=== PATIENT | female | born 1945 | race Caucasian/White ===

== ENCOUNTER 2018-04-21 13:54 | Inpatient (IN) ==
[2018-04-21] MEDS ORDERED: Sod Chloride 0.9% Inj 1,000 ML IV.CONT SCH (14:00)
--- NOTE | 2018-04-21 14:03 | ED ---
HPI General Chief Complaint: Stroke Alert Stated Complaint: Poss Stroke Time Seen by Provider: 04/21/18 13:56 Source: EMS Mode of arrival: EMS Limitations: altered mental status History of Present Illness HPI narrative: Elderly female with history of multiple previous strokes, right- sided weakness and contractures, left-sided weakness, presents to the ER today brought in by EMS, apparently family states that 45 minutes prior to arrival she was seen normal which includes being able to talk normally. However, they note that she became less responsive, disoriented, staring off, difficulty speaking, disoriented. Related Data Home Medications Medication Instructions Recorded Confirmed Unable to Obtain Home Meds 04/21/18 04/21/18 Allergies Allergy/AdvReac Type Severity Reaction Status Date / Time No Allergy Information Allergy Verified 04/21/18 15:13 Available Review of Systems ROS Unobtainable ROS Unobtainable: unobtainable due to mental status PMFSH History History Provided By: Record Filing Clerk / EMT Medical History Medical History CVA (cerebral vascular accident) (Acute) Social History Social History Substance History: Unable to Obtain Smoking Status: Unknown if ever smoked How Often Do You Have a Drink Containing Alcohol: Unable to Obtain Exam Narrative Exam Narrative: GENERAL: Thin elderly white female patient who has right-sided contractures from previous stroke, awake, disoriented, and moderate distress, aphasic and difficult to understand. SKIN: Focused skin assessment warm/dry. HEAD: Atraumatic. Normocephalic. EYES: Pupils equal and round. No scleral icterus. No injection or drainage. ENT: No nasal bleeding or discharge. Mucous membranes pink and moist. NECK: Trachea midline. No JVD. CARDIOVASCULAR: Regular rate and rhythm. No murmur appreciated. RESPIRATORY: No accessory muscle use. Clear to auscultation. Breath sounds equal bilaterally. GASTROINTESTINAL: Abdomen soft, non-tender, nondistended. Hepatic and splenic margins not palpable. MUSCULOSKELETAL: No obvious deformities. No clubbing. No cyanosis. No edema. NEUROLOGICAL: Awake and disoriented. Garbled speech. Face appears to be symmetrical. Right-sided weakness, contractures, moving the left side, but not following commands. PSYCHIATRIC: Disoriented and not able to assess. Course Initial Documented Vital Signs Temperature 97.7 F 04/21/18 13:55 Pulse Rate 85 04/21/18 13:55 Respiratory Rate 16 04/21/18 13:55 Blood Pressure 115/63 04/21/18 13:55 Pulse Oximetry 95 04/21/18 13:55 Last Documented Vital Signs Temperature 97.7 F 04/21/18 13:55 Pulse Rate 60 04/21/18 13:56 Respiratory Rate 16 04/21/18 13:55 Blood Pressure 115/63 04/21/18 13:55 Pulse Oximetry 97 04/21/18 14:01 NIH Stroke Scale NIH Stroke Scale Level of Consciousness: 1-Drowsy Orientation Questions: 2-Neither task correct Responds to Commands: 2-Neither task correct Gaze Eye Movement: 1-Partial gaze palsy Visual [place]: 0-No visual field defect Facial Movement: 0-Normal Motor Functions Arm LEFT: 1-Drift before 10 seconds Motor Functions Arm RIGHT: 3-No effort against gravity Motor Functions Leg LEFT: 1-Drift before 5 seconds Motor Functions Leg RIGHT: 3-No effort against gravity Limb Ataxia: 1-Ataxia in one limb Sensory Loss: 2-Severe sensory loss Best Language: 1-Mild aphasia Articulation: 1-Mild dysarthia Extinction or Inattention Sensory: 0-Absent Total: 19 Medical Decision Making MDM Narrative Medical decision making narrative: CT did not show any signs of acute intracranial injuries or hemorrhage, she has signs of old previous ischemic strokes. CTA did not show any signs of acute occlusion. Her lab work was fairly unremarkable. She is barely able to follow commands, very disoriented. Patient is named Erin Diaz and review of previous chart shows that she has had multiple previous stroke, had been on Coumadin in the past. Her INR is 1 here. The case had been discussed extensively with Dr. Orr who had first thought that she would be a TPA candidate, but then discussed the case with patient's family on record and they state that she is on Eliquis. TPA was then canceled. At this point, patient will be admitted to the hospital for further treatment and evaluation. Case is discussed with family practice resident service for admission. In addition, her EKG did not show any significant dysrhythmias or ST changes. Her troponin is mildly elevated, will need to be followed out as well. Medical Screen Exam Complete: Yes Emergency Medical Condition: Yes Differential Diagnosis Differential Diagnosis: CA versus ICH versus electrolyte abnormalities versus dehydration versus electrolyte abnormalities Lab Data Lab results reviewed: Yes I reviewed the patient's lab results. Result diagrams: 04/21/18 14:00 Lab Results 04/21/18 04/21/18 04/21/18 Range/Units 13:57 14:00 14:00 WBC 10.1 (4.0-11.0) th/mm3 RBC 2.98 L (4.00-5.30) mil/mm3 Hgb 9.5 L (11.6-15.3) gm/dL POC Hgb (Calc) (11.6-15.3) g/dL Hct 27.6 L (35.0-46.0) % POC Hct (35-46.0) % MCV 92.5 (80.0-100.0) fL MCH 31.8 (27.0-34.0) pg MCHC 34.4 (32.0-36.0) % RDW 13.8 (11.6-17.2) % Plt Count 405 (150-450) th/mm3 MPV 6.4 L (7.0-11.0) fL Neut % (Auto) 78.1 H (16.0-70.0) % Lymph % (Auto) 13.0 (9.0-44.0) % [place] % (Auto) 7.1 (0.0-8.0) % Eos % (Auto) 0.9 (0.0-4.0) % Baso % (Auto) 0.9 (0.0-2.0) % Neut # (Auto) 7.9 H (1.8-7.7) th/mm3 Lymph # (Auto) 1.3 (1.0-4.8) th/mm3 [place] # (Auto) 0.7 (0.0-0.9) th/mm3 Eos # (Auto) 0.1 (0.0-0.4) th/mm3 Baso # (Auto) 0.1 (0.0-0.2) th/mm3 WBC Differential . Differential Comment Auto diff final PT 10.0 (9.8-11.6) sec INR 1.0 Ratio APTT 27.5 (24.3-30.1) sec POC Sodium (137-144) mmol/L POC Potassium (3.6-5.0) mmol/L POC Chloride (102-111) mmol/L POC BUN (5-21) mg/dL POC Creatinine (0.6-1.3) mg/dL POC Glucose 133 H (68-110) mg/dl Total Creatine Kinase (26-192) U/L Troponin I (0.02-0.05) ng/mL Blood Type Antibody Screen 04/21/18 04/21/18 04/21/18 Range/Units 14:00 14:00 14:00 WBC (4.0-11.0) th/mm3 RBC (4.00-5.30) mil/mm3 Hgb (11.6-15.3) gm/dL POC Hgb (Calc) 8.8 L (11.6-15.3) g/dL Hct (35.0-46.0) % POC Hct 26.0 L (35-46.0) % MCV (80.0-100.0) fL MCH (27.0-34.0) pg MCHC (32.0-36.0) % RDW (11.6-17.2) % Plt Count (150-450) th/mm3 MPV (7.0-11.0) fL Neut % (Auto) (16.0-70.0) % Lymph % (Auto) (9.0-44.0) % [place] % (Auto) (0.0-8.0) % Eos % (Auto) (0.0-4.0) % Baso % (Auto) (0.0-2.0) % Neut # (Auto) (1.8-7.7) th/mm3 Lymph # (Auto) (1.0-4.8) th/mm3 [place] # (Auto) (0.0-0.9) th/mm3 Eos # (Auto) (0.0-0.4) th/mm3 Baso # (Auto) (0.0-0.2) th/mm3 WBC Differential Differential Comment PT (9.8-11.6) sec INR Ratio APTT (24.3-30.1) sec POC Sodium 135 L (137-144) mmol/L POC Potassium 4.0 (3.6-5.0) mmol/L POC Chloride 98 L (102-111) mmol/L POC BUN 40 H (5-21) mg/dL POC Creatinine 1.3 (0.6-1.3) mg/dL POC Glucose 106 (68-110) mg/dl Total Creatine Kinase 35 (26-192) U/L Troponin I 0.16 H (0.02-0.05) ng/mL Blood Type A Positive Antibody Screen Negative Imaging Data Attestation: I personally reviewed and interpreted this imaging study as follows : Radiologist's impression: Chest X-Ray 04/21/18 13:56 CONCLUSION: Technically Limited exam grossly negative for acute process Head CT 04/21/18 13:56 CONCLUSION: 1. No acute intracranial abnormality is identified to explain the clinical symptoms. 2. Bilateral areas of encephalomalacia, as above, related to prior infarcts. 3. Chronic findings include generalized atrophy and moderate severity chronic white matter changes. These findings were telephoned to Dr. Yap via telephone on 04/21/2018 at 2:11 PM. Head CTA 04/21/18 13:56 CONCLUSION: No intracranial vascular abnormality is identified. These findings were telephoned to Dr. Orr on 04/21/2018 at 2:24 PM. Neck CTA 04/21/18 13:56 CONCLUSION: No evidence of carotid stenosis. Discharge Plan Discharge Details Anticipated Discharge Date: 04/21/18 Physicians Team ED Provider: Nancy Yap Rxs /Orders / Referrals /Forms Prescriptions: No Action Unable to Obtain Home Meds RF: 0 Status ED Status: With Doctor
[2018-04-21 14:12] LABS: Baso # (Auto) 0.1 th/mm3 (0.0-0.2); Baso % (Auto) 0.9 % (0.0-2.0); Eos # (Auto) 0.1 th/mm3 (0.0-0.4); Eos % (Auto) 0.9 % (0.0-4.0); Hematocrit 27.6 % (35.0-46.0); Hemoglobin 9.5 gm/dL (11.6-15.3); Lymph # (Auto) 1.3 th/mm3 (1.0-4.8); Mean Corpuscular HGB Conc 34.4 % (32.0-36.0); Mean Corpuscular Hemoglobin 31.8 pg (27.0-34.0); Mean Corpuscular Volume 92.5 fL (80.0-100.0); Mean Platelet Volume 6.4 fL (7.0-11.0); Mono # (Auto) 0.7 th/mm3 (0.0-0.9); Mono % (Auto) 7.1 % (0.0-8.0); Neut # (Auto) 7.9 th/mm3 (1.8-7.7); Neut % (Auto) 78.1 % (16.0-70.0); Platelet Count 405 th/mm3 (150-450); Red Blood Count 2.98 mil/mm3 (4.00-5.30); Red Cell Distribution Width 13.8 % (11.6-17.2); White Blood Count 10.1 th/mm3 (4.0-11.0)
--- NOTE | 2018-04-21 14:15 | CT ---
EXAM DATE: 04/21/2018 2:07 PM EDT AGE/SEX: 89 years / Female INDICATIONS: Stroke alert, inability to speak sentences CLINICAL DATA: This is the patient's initial encounter. Patient reports that signs and symptoms have been present for 1 day and indicates a pain score of Nonresponsive. MEDICAL/SURGICAL HISTORY: Cerebrovascular disease. Non-responsive. RADIATION DOSE: 37.45 CTDI (mGy) COMPARISON: No prior exams available for comparison. TECHNIQUE: CT of the head without contrast. Using automated exposure control and adjustment of the mA and/or kV according to patient size, radiation dose was kept as low as reasonably achievable to ob tain optimal diagnostic quality images. DICOM format image data is available electronically for revi ew and comparison. FINDINGS: Cerebrum: There is moderate generalized cerebral atrophy. Ventricles are normal given the degree of atrophy. There is moderate periventricular white matter low attenuation. There is large area of par tially cystic encephalomalacia involving the left frontoparietal high and mid convexity. A smaller ar ea of partially cystic encephalomalacia is present in the right frontal high convexity. No midline sh ift, mass lesion, hemorrhage or acute infarction. No extraaxial fluid collections are seen. Posterior Fossa: The cerebellum and brainstem demonstrate no acute abnormality. The 4th ventricle is midline. The cerebellopontine angle is within normal limits. Extracranial: The visualized sinuses are clear. Skull: The calvaria is intact. No skull fracture. CONCLUSION: 1. No acute intracranial abnormality is identified to explain the clinical symptoms. 2. Bilateral areas of encephalomalacia, as above, related to prior infarcts. 3. Chronic findings include generalized atrophy and moderate severity chronic white matter changes. These findings were telephoned to Dr. Yap via telephone on 04/21/2018 at 2:11 PM. Electronically signed by: Ru Gordon MD 04/21/2018 2:14 PM EDT
[2018-04-21 14:22] LABS: Activated Partial Thrombo Time 27.5 sec (24.3-30.1)
--- NOTE | 2018-04-21 14:26 | CT ---
EXAM DATE: 04/21/2018 2:17 PM EDT AGE/SEX: 89 years / Female INDICATIONS: Stroke alert, inability to speak CLINICAL DATA: This is the patient's initial encounter. Patient reports that signs and symptoms have been present for 1 day and indicates a pain score of Nonresponsive. MEDICAL/SURGICAL HISTORY: Cerebrovascular disease. Non-responsive. RADIATION DOSE: 26.18 CTDI (mGy) ; Combined studies COMPARISON: [facility] [place], CT HEAD W/O CONTRAST, 04/21/2018. . TECHNIQUE: Volumetric scanning was performed using a multi-row detector CT scanner during bolus infu zelalem of 75 ml Omnipaque 350 (iohexol) nonionic water-soluble contrast as a cumulative dose for multi ple exams. The data was post processed with a variety of visualization algorithms including full vo lume maximum intensity projection, multi-planar sliding thin slab reformation, curved planar reformat ion, and surface rendering techniques. Using automated exposure control and adjustment of the mA and /or kV according to patient size, radiation dose was kept as low as reasonably achievable to obtain o ptimal diagnostic quality images. DICOM format image data is available electronically for review and comparison. FINDINGS: Anterior circulation: The internal carotid arteries have a symmetric appearance without significant s tenosis. Minimal atherosclerotic changes present bilaterally. The A1 segments are symmetric and paten t bilaterally. Middle cerebral artery branches demonstrate normal and relatively symmetric enhancemen t. No aneurysm or high-grade stenosis is present. Posterior circulation: Left vertebral artery is dominant. Basilar artery is within normal limits. The re is no aneurysm. Posterior cerebral arteries are normal. CONCLUSION: No intracranial vascular abnormality is identified. These findings were telephoned to Dr. Orr on 04/21/2018 at 2:24 PM. Electronically signed by: Ru Gordon MD 04/21/2018 2:24 PM EDT
--- NOTE | 2018-04-21 14:35 | XR ---
EXAM DATE: 04/21/2018 2:33 PM EDT AGE/SEX: 89 years / Female INDICATIONS: Stroke alert. CLINICAL DATA: This is the patient's initial encounter. Patient reports that signs and symptoms have been present for 1 day and indicates a pain score of Nonresponsive. MEDICAL/SURGICAL HISTORY: Non-responsive. Non-responsive. COMPARISON: No prior exams available for comparison. FINDINGS: Patient is slightly rotated. BE skinfolds or other artifactual densities overlying the right chest. Cardiac monitoring device proj ects over the low left chest. The lungs are grossly clear and symmetrically aerated. The cardiac cont ours are satisfactory. CONCLUSION: Technically Limited exam grossly negative for acute process Electronically signed by: Ru Walter MD 04/21/2018 2:34 PM EDT
[2018-04-21 14:38] LABS: Troponin I 0.16 ng/mL (0.02-0.05)
--- NOTE | 2018-04-21 14:38 | CT ---
EXAM DATE: 04/21/2018 2:26 PM EDT AGE/SEX: 89 years / Female INDICATIONS: Stroke alert, inability to speak CLINICAL DATA: This is the patient's initial encounter. Patient reports that signs and symptoms have been present for 1 day and indicates a pain score of Nonresponsive. MEDICAL/SURGICAL HISTORY: Cerebrovascular disease. Non-responsive. RADIATION DOSE: 26.18 CTDI (mGy) ; Combined studies COMPARISON: No prior exams available for comparison. TECHNIQUE: Volumetric scanning was performed using a multirow detector CT scanner during bolus infus ion of 75 ml Omnipaque 350 (iohexol) nonionic water-soluble contrast as a cumulative dose for multip le exams. The data was postprocessed with a variety of visualization algorithms including full-volu me maximum intensity projection, multiplanar sliding thin-slab reformation, curved-planar reformation , and surface-rendering techniques. Using automated exposure control and adjustment of the mA and/or kV according to patient size, radiation dose was kept as low as reasonably achievable to obtain opti mal diagnostic quality images. DICOM format image data is available electronically for review and co mparison. Percent stenosis is calculated using the diameter of the stenotic region over the diameter of the nor mal distal internal carotid artery. FINDINGS: Aortic Arch: There is a three-vessel origin of the great vessels from the aorta. No evidence of ost ial narrowing Right Carotid: The common carotid artery is intact. The carotid bulb has a normal configuration wit hout ulceration or narrowing. The internal carotid artery lumen is smooth without stenosis. The ext ernal carotid artery is intact. Left Carotid: The common carotid artery is intact. The carotid bulb has a normal configuration with out ulceration or narrowing. The internal carotid artery lumen is smooth without stenosis. The exte rnal carotid artery is intact. Vertebrals: The vertebral arteries are patent bilaterally, left side dominant.. No stenotic lesions are seen. CONCLUSION: No evidence of carotid stenosis. Electronically signed by: Ru Walter MD 04/21/2018 2:36 PM EDT
[2018-04-21] MEDS ORDERED: Alteplase Bolus 9 MG/9 ML Syringe IV.PUSH ONE (14:46)
[2018-04-21] MEDS ORDERED: ALTEPLASE DRIP IV.SIG ONE (14:46)
[2018-04-21] MEDS ORDERED: Aspirin 325 MG Tablet PO ONE (15:32)
[2018-04-21 15:58] LABS: Bacteria,Urine Many /hpf; Bilirubin,Urine Negative (Negative); Clarity,Urine Cloudy (Clear); Color,Urine Yellow (Yellw/Straw); Glucose,Urine (UA) Negative (Negative); Leukocyte Esterase,Urine Large (Negative); Nitrite,Urine Negative (Negative); Specific Gravity,Urine 1.015 (1.002-1.035)
[2018-04-21] MEDS ORDERED: Dextrose 50% in Water 50 ML Vial IV.PUSH PRN (16:21)
--- NOTE | 2018-04-21 16:29 | P.CONNEU ---
History of Present Illness Service: Neurology Chief Complaint: Stroke alert History of Present Illness: Female brought in as a potential stroke alert. Symptom onset approximately 30- 45 minutes prior to arrival. Does have family to be acutely disoriented repeating herself at times. She does have a history of previous strokes including left hemispheric stroke resulting in aphasia and expressive and right spastic hemiparesis followed by further strokes affecting her left side. No known history of seizure activity. She does have a PEG tube. Upon discussion with her spouse on the phone Mr. Mills [phone], he states the patient takes Eliquis twice a day and he has been compliantly giving it to her. The patient is on anticoagulation she is not deemed IV TPA candidate. In addition appears that her speech is somewhat improved but was still having difficulty following motor requests. This challenging to do her NIH stroke scale with significant previous deficits. Review of Systems unobtainable due to mental status PMFSH - History History Provided By: Moccasin Sewer / EMT - Medical History Medical History: Medical History (Last Updated 04/21/18 @ 14:01 by Nancy Yap MD) CVA (cerebral vascular accident) - Tobacco History Smoking Status: Unknown if ever smoked - Alcohol History How Often Do You Have a Drink Containing Alcohol: Unable to Obtain - Substance Use History Substance History: Unable to Obtain - Immunization History Tetanus Immunization: Unable to Assess Hx Influenza Vaccine This Season: Unable to Assess Medications and Allergies Active Medications: Active Medications Sodium Chloride (Ns Inj) 1,000 mls @ 70 mls/hr IV.CONT .[id number] JORDIN Stop: 04/22/18 04:17 Last Admin: 04/21/18 16:01 Dose: 70 mls/hr Sodium Chloride (Ns Flush) 2 ml IV.FLUSH PRN PRN PRN Reason: FLUSH AFTER USING IV ACCESS Allergies Allergy/AdvReac Type Severity Reaction Status Date / Time No Known Allergies Allergy Verified 04/21/18 16:24 Home Medications Medication Instructions Recorded Confirmed Type Unable to Obtain Home Meds 04/21/18 04/21/18 History Exam Vital signs: Vital Signs 04/21/18 13:55 04/21/18 13:56 04/21/18 14:01 Temperature 97.7 F Pulse Rate 85 60 Respiratory Rate 16 Blood Pressure 115/63 Pulse Oximetry 95 95 97 Intake & Output 04/20/18 04/21/18 04/21/18 18:59 06:59 18:59 Weight 44.4 kg Narrative: GENERAL: WDWN obese female, INAD. Awake and alert. SKIN: Warm and dry. No rash. HEAD: Atraumatic. Normocephalic. EYES: Pupils equal and round. No scleral icterus. No injection or drainage. ENT: No nasal bleeding or discharge. Mucous membranes pink and moist. NECK: Trachea midline. CARDIOVASCULAR: Regular rate and rhythm. RESPIRATORY: No accessory muscle use. Clear to auscultation. GASTROINTESTINAL: Abdomen soft, non-tender, nondistended. PEG tube in place MUSCULOSKELETAL: Extremities without clubbing, cyanosis, or edema. No obvious deformities. NEUROLOGICAL: Awake and alert. Repeat herself states, "help help and states no , mild right gaze preference, not following reduced visual field blink to threat , OU 3 mm sluggish, right spastic hemiparesis, mild left-sided weakness, PEG tube in place gait not assessed secondary to fall risk and level weakness PSYCHIATRIC: Mildly anxious - Constitutional no acute distress - Routine HEENT Exam Head: Present: normocephalic Results - Labs CBC & Chem 7: 04/21/18 14:00 Labs: Laboratory Results - last 24 hr 04/21/18 04/21/18 04/21/18 13:57 14:00 14:00 WBC 10.1 RBC 2.98 L Hgb 9.5 L POC Hgb (Calc) Hct 27.6 L POC Hct MCV 92.5 MCH 31.8 MCHC 34.4 RDW 13.8 Plt Count 405 MPV 6.4 L Neut % (Auto) 78.1 H Lymph % (Auto) 13.0 [place] % (Auto) 7.1 Eos % (Auto) 0.9 Baso % (Auto) 0.9 Neut # (Auto) 7.9 H Lymph # (Auto) 1.3 [place] # (Auto) 0.7 Eos # (Auto) 0.1 Baso # (Auto) 0.1 WBC Differential . Differential Comment Auto diff final PT 10.0 INR 1.0 APTT 27.5 POC Sodium POC Potassium POC Chloride POC BUN POC Creatinine POC Glucose 133 H Total Creatine Kinase Troponin I Urine Color Urine Clarity Urine pH Ur Specific [place] Urine Protein Urine Glucose (UA) Urine Ketones Urine Occult Blood Urine Nitrate Urine Bilirubin Urine Urobilinogen Ur Leukocyte Esterase Urine RBC Urine WBC Urine Bacteria Micro UA Comment Urine Culture Comments Blood Type Antibody Screen 04/21/18 04/21/18 04/21/18 14:00 14:00 14:00 WBC RBC Hgb POC Hgb (Calc) 8.8 L Hct POC Hct 26.0 L MCV MCH MCHC RDW Plt Count MPV Neut % (Auto) Lymph % (Auto) [place] % (Auto) Eos % (Auto) Baso % (Auto) Neut # (Auto) Lymph # (Auto) [place] # (Auto) Eos # (Auto) Baso # (Auto) WBC Differential Differential Comment PT INR APTT POC Sodium 135 L POC Potassium 4.0 POC Chloride 98 L POC BUN 40 H POC Creatinine 1.3 POC Glucose 106 Total Creatine Kinase 35 Troponin I 0.16 H Urine Color Urine Clarity Urine pH Ur Specific [place] Urine Protein Urine Glucose (UA) Urine Ketones Urine Occult Blood Urine Nitrate Urine Bilirubin Urine Urobilinogen Ur Leukocyte Esterase Urine RBC Urine WBC Urine Bacteria Micro UA Comment Urine Culture Comments Blood Type A Positive Antibody Screen Negative 04/21/18 15:15 WBC RBC Hgb POC Hgb (Calc) Hct POC Hct MCV MCH MCHC RDW Plt Count MPV Neut % (Auto) Lymph % (Auto) [place] % (Auto) Eos % (Auto) Baso % (Auto) Neut # (Auto) Lymph # (Auto) [place] # (Auto) Eos # (Auto) Baso # (Auto) WBC Differential Differential Comment PT INR APTT POC Sodium POC Potassium POC Chloride POC BUN POC Creatinine POC Glucose Total Creatine Kinase Troponin I Urine Color Yellow Urine Clarity Cloudy H Urine pH 7.0 Ur Specific [place] 1.015 Urine Protein Negative Urine Glucose (UA) Negative Urine Ketones Negative Urine Occult Blood Small H Urine Nitrate Negative Urine Bilirubin Negative Urine Urobilinogen 2.0 H Ur Leukocyte Esterase Large H Urine RBC 6 H Urine WBC Urine Bacteria Many H Micro UA Comment Cath-culture ind Urine Culture Comments Cath-cult indicated Blood Type Antibody Screen - Imaging Impressions Chest X-Ray 04/21/18 13:56 CONCLUSION: Technically Limited exam grossly negative for acute process Head CT 04/21/18 13:56 CONCLUSION: 1. No acute intracranial abnormality is identified to explain the clinical symptoms. 2. Bilateral areas of encephalomalacia, as above, related to prior infarcts. 3. Chronic findings include generalized atrophy and moderate severity chronic white matter changes. These findings were telephoned to Dr. Yap via telephone on 04/21/2018 at 2:11 PM. Head CTA 04/21/18 13:56 CONCLUSION: No intracranial vascular abnormality is identified. These findings were telephoned to Dr. Orr on 04/21/2018 at 2:24 PM. Neck CTA 04/21/18 13:56 CONCLUSION: No evidence of carotid stenosis. Review/Management - Diagnosis (1) Encephalopathy acute Code(s): G93.40 - Encephalopathy, unspecified Status: Acute Current Visit: Yes (2) Chronic ischemic left MCA stroke Code(s): I69.30 - Unspecified sequelae of cerebral infarction Status: Acute Current Visit: Yes (3) Chronic ischemic right MCA stroke Code(s): I69.30 - Unspecified sequelae of cerebral infarction Status: Acute Current Visit: Yes (4) Chronic left arterial ischemic stroke, MCA (middle cerebral artery) Code(s): I69.30 - Unspecified sequelae of cerebral infarction Status: Acute Current Visit: Yes - Review/Management Plan: Etiology; possible new infarct, versus complex partial seizure, versus metabolic CT brain carotids no significant vaso-occlusive disease Recommendations MRI brain EEG Continue Eliquis for now until imaging completed. If new infarct seen we will change her anticoagulant. Follow-up urine culture PT OT evaluation We will start IV Celebrex until EEG completed Follow exam
[2018-04-21] MEDS ORDERED: Bisacodyl 10 MG Supp RECTAL PRN (16:35)
--- NOTE | 2018-04-21 16:49 | P.HPFP ---
History of Present Illness Chief Complaint: Stroke alert History of Present Illness: 72 year old female PMH multiple previous strokes, right-sided weakness and contractures, left-sided weakness, kidney stones presents with altered mental status. Patient non verbal or responsive to questions so history taken from daughter. Patient was unresponsive at 12:30 pm. After physical therapy session at home, patient was lying in bed and staring at ceiling. She did not respond to family members voice or movements. 20 minutes later she was yelling out to family members for help but not stating what was wrong or if she was in any pain. They called the EMS. During the physical therapy session she was interactive and cooperative. The past two weeks she had been her normal baseline tolerating her tube feedings, no vomiting, urinating normally with no change in color or odor of urine, no fever, no chills, no pain. 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 She suffered a second stroke in December with no focal deficits. She had another stroke in January that resulted in weakness of her left side. She regained function of her left leg but cannot use her left hand. She is moved by wheel chair with family assistance. She speaks limited words and often uses the incorrect words. Her daughter feels like she is still able to communicate with her and the patient's , who the patient lives with. They have a nurse who comes at night, but the daughter feels the nurse is not doing an adequate job taking care of her mother. The patient's is the medical decision maker. Daughter is unsure of patient's medications, but says she took her morning dose of Eliquis. - Diagnosis (1) Altered mental state (2) Nutrition, metabolism, and development symptoms Inpatient Certification: I certify that the inpatient services were ordered in accordance with Medicare regulations governing the order. This includes certification that hospital inpatient services are reasonable and necessary and in the case of services not specified as inpatient-only under 42 CFR 419.22(n), that they are appropriately provided as inpatient services in accordance to with the 2-midnight benchmark under 43 CFR 412.3(e) Estimated Total Length of Stay (Days): 3 Plans for Post Hospital Care: Not yet determined Review of Systems unobtainable due to mental condition PMFSH - History History Provided By: Director [employer] / EMT - Medical History Medical History: Medical History (Last Updated 04/21/18 @ 16:37 by Salud Euceda RN) CVA (cerebral vascular accident) Dysphagia Kidney disease Left sided cerebral hemisphere cerebrovascular accident Right sided cerebral infarction - Surgical History Surgical History: Surgical History (Last Updated 04/21/18 @ 16:37 by Salud Euceda, RN) H/O resection of stomach PEG (percutaneous endoscopic gastrostomy) status - Tobacco History Smoking Status: Unknown if ever smoked - Alcohol History How Often Do You Have a Drink Containing Alcohol: Unable to Obtain - Substance Use History Substance History: Unable to Obtain - Immunization History Tetanus Immunization: Unable to Assess Hx Influenza Vaccine This Season: Unable to Assess Medications and Allergies Active Medications: Active Medications Al Hydroxide/Mg Hydroxide (Milk Of Magnesia Liq) 30 ml PO Q12H PRN PRN Reason: Mild Constipation Apixaban (Eliquis) 5 mg PO BID JORDIN Bisacodyl (Dulcolax Supp) 10 mg RECTAL DAILY PRN PRN Reason: SEVERE CONSITIPATION Dextrose (D50w Vial) 50 ml IV.PUSH UNSCH PRN PRN Reason: PER HYPOGLYCEMIA PROTOCOL Glucagon (Glucagon Inj) 1 mg OTHER UNSCH PRN PRN Reason: for Hypoglycemia Protocol Sodium Chloride (Ns Inj) 1,000 mls @ 70 mls/hr IV.CONT .[id number] [facility] Stop: 04/22/18 04:17 Last Admin: 04/21/18 16:01 Dose: 70 mls/hr Insulin Aspart (Novolog Insulin Correctional Sugar Inj) 0 unit SQ ACHS [facility]; Protocol Lactulose (Lactulose Liq) 30 ml PO DAILY PRN PRN Reason: SEVERE CONSITIPATION Senna/Docusate Sodium (Shania-Colace) 1 tab PO BID [facility] Sennosides (Senokot) 17.2 mg PO Q12H PRN PRN Reason: Moderate Constipation Sodium Chloride (Ns Flush) 2 ml IV.FLUSH PRN PRN PRN Reason: FLUSH AFTER USING IV ACCESS Sodium Chloride (Ns Flush) 2 ml IV.FLUSH BID [facility] Allergies Allergy/AdvReac Type Severity Reaction Status Date / Time No Known Allergies Allergy Verified 04/21/18 16:24 Home Medications Medication Instructions Recorded Confirmed Type albuterol sulfate 2.5 mg INHALATION Q6H PRN 04/21/18 04/21/18 History apixaban [Eliquis] 2.5 mg PO BID 04/21/18 04/21/18 History atorvastatin 40 mg PO DAILY 04/21/18 04/21/18 History diltiazem HCl 120 mg PO Q12H 04/21/18 04/21/18 History docusate sodium 100 mg PO DAILY 04/21/18 04/21/18 History hydroxyzine HCl 25 mg PO TID-QID PRN 04/21/18 04/21/18 History lansoprazole 30 mg PO DAILY 04/21/18 04/21/18 History tramadol 25 mg PO Q4H PRN 04/21/18 04/21/18 History Exam Vital signs: Vital Signs 04/21/18 13:55 04/21/18 13:56 04/21/18 14:01 Temperature 97.7 F Pulse Rate 85 60 Respiratory Rate 16 Blood Pressure 115/63 Pulse Oximetry 95 95 97 04/21/18 15:32 Temperature Pulse Rate 85 Respiratory Rate 16 Blood Pressure 127/78 Pulse Oximetry 97 Intake & Output 04/20/18 04/21/18 04/21/18 18:59 06:59 18:59 Weight 44.4 kg Narrative: GENERAL: SKIN: Warm and dry. HEAD: Atraumatic. Normocephalic. EYES: 3 mm pupils and reactive bilaterally. Pupils equal and round. No scleral icterus. No injection or drainage. ENT: No nasal bleeding or discharge. dry mucous membranes, cracked skin, multiple sore on gums, surrounding teeth, and roof of mouth NECK: Trachea midline. No JVD. CARDIOVASCULAR: Regular rate and rhythm. No murmurs. 2+ dorsalis pedis and radial pulses bilaterally RESPIRATORY: No accessory muscle use. Clear to auscultation. difficult to access was not taking deep breaths GASTROINTESTINAL: Abdomen soft, non-tender, nondistended. Hepatic and splenic margins not palpable. Tube incision dry and intact MUSCULOSKELETAL: Extremities without clubbing, cyanosis, or edema. No obvious deformities. NEUROLOGICAL: Awake. Unable to access extra ocular movements or do neuro exam because patient was not completely awake. Spontaneously moved left sign but not following any commands or responding verbally. Results - Labs Result diagrams: 04/21/18 14:00 Abnormal lab results 04/21/18 04/21/18 04/21/18 Range/Units 13:57 14:00 14:00 RBC 2.98 L (4.00-5.30) mil/mm3 Hgb 9.5 L (11.6-15.3) gm/dL POC Hgb (Calc) (11.6-15.3) g/dL Hct 27.6 L (35.0-46.0) % POC Hct (35-46.0) % MPV 6.4 L (7.0-11.0) fL Neut % (Auto) 78.1 H (16.0-70.0) % Neut # (Auto) 7.9 H (1.8-7.7) th/mm3 POC Sodium (137-144) mmol/L POC Chloride (102-111) mmol/L POC BUN (5-21) mg/dL POC Glucose 133 H (68-110) mg/dl Troponin I 0.16 H (0.02-0.05) ng/mL Urine Clarity (Clear) Urine Occult Blood (Negative) Urine Urobilinogen (Less than 2) mg/dL Ur Leukocyte Esterase (Negative) Urine RBC (0-3) /hpf Urine Bacteria (None) /hpf 04/21/18 04/21/18 Range/Units 14:00 15:15 RBC (4.00-5.30) mil/mm3 Hgb (11.6-15.3) gm/dL POC Hgb (Calc) 8.8 L (11.6-15.3) g/dL Hct (35.0-46.0) % POC Hct 26.0 L (35-46.0) % MPV (7.0-11.0) fL Neut % (Auto) (16.0-70.0) % Neut # (Auto) (1.8-7.7) th/mm3 POC Sodium 135 L (137-144) mmol/L POC Chloride 98 L (102-111) mmol/L POC BUN 40 H (5-21) mg/dL POC Glucose (68-110) mg/dl Troponin I (0.02-0.05) ng/mL Urine Clarity Cloudy H (Clear) Urine Occult Blood Small H (Negative) Urine Urobilinogen 2.0 H (Less than 2) mg/dL Ur Leukocyte Esterase Large H (Negative) Urine RBC 6 H (0-3) /hpf Urine Bacteria Many H (None) /hpf Short CBC 04/21/18 Range/Units 14:00 WBC 10.1 (4.0-11.0) th/mm3 Hgb 9.5 L (11.6-15.3) gm/dL Hct 27.6 L (35.0-46.0) % Plt Count 405 (150-450) th/mm3 Cardiac Enzymes 04/21/18 Range/Units 14:00 Total Creatine Kinase 35 (26-192) U/L Troponin I 0.16 H (0.02-0.05) ng/mL Urine 04/21/18 Range/Units 15:15 Urine Color Yellow (Yellw/Straw) Urine Clarity Cloudy H (Clear) Urine pH 7.0 (5.0-8.5) Ur Specific [place] 1.015 (1.002-1.035) Urine Protein Negative (Neg-Trace) mg/dL Urine Glucose (UA) Negative (Negative) mg/dL - Imaging Impressions Chest X-Ray 04/21/18 13:56 CONCLUSION: Technically Limited exam grossly negative for acute process Head CT 04/21/18 13:56 CONCLUSION: 1. No acute intracranial abnormality is identified to explain the clinical symptoms. 2. Bilateral areas of encephalomalacia, as above, related to prior infarcts. 3. Chronic findings include generalized atrophy and moderate severity chronic white matter changes. These findings were telephoned to Dr. Yap via telephone on 04/21/2018 at 2:11 PM. Head CTA 04/21/18 13:56 CONCLUSION: No intracranial vascular abnormality is identified. These findings were telephoned to Dr. Orr on 04/21/2018 at 2:24 PM. Neck CTA 04/21/18 13:56 CONCLUSION: No evidence of carotid stenosis. Caprini VTE Risk Assessment Caprini VTE Risk Assessment: Moderate/High Risk (score >= 2) Caprini Risk Assessment Model: Point Value = 1 Point Value = 2 Point Value = 3 Point Value = 5 Age 41-60 Minor surgery BMI > 25 kg/m2 Swollen legs Varicose veins or History of unexplained or recurrent spontaneous Oral contraceptives or hormone replacement Sepsis (< 1 month) Serious lung disease, including pneumonia (< 1 month) Abnormal pulmonary function Acute myocardial infarction Congestive heart failure (< 1 month) History of inflammatory bowel disease Medical patient at bed rest Age 61-74 Arthroscopic surgery Major open surgery (> 45 min) Laparoscopic surgery (> 45 min) Malignancy Confined to bed (> 72 hours) Immobilizing plaster cast Central venous access Age >= 75 History of VTE Family history of VTE Factor V Leiden Prothrombin [id number] Lupus anticoagulant Anticardiolipin antibodies Elevated serum homocysteine Heparin-induced thrombocytopenia Other congenital or acquired thrombophilia Stroke (< 1 month) Elective arthroplasty Hip, pelvis, or leg fracture Acute spinal cord injury (< 1 month) Prophylaxis Regimen: Home eliquis Total Risk Factor Score Risk Level Prophylaxis Regimen 0-1 Low Early ambulation 2 Moderate Order ONE of the following: *Sequential Compression Device (SCD) *Heparin 5000 units SQ BID 3-4 Higher Order ONE of the following medications: *Heparin 5000 units SQ TID *Enoxaparin/Lovenox 40 mg SQ daily (WT < 150 kg, CrCl > 30 mL/min) *Enoxaparin/Lovenox 30 mg SQ daily (WT < 150 kg, CrCl > 10-29 mL/min) *Enoxaparin/Lovenox 30 mg SQ BID (WT < 150 kg, CrCl > 30 mL/min) AND/OR *Sequential Compression Device (SCD) 5 or more Highest Order ONE of the following medications: *Heparin 5000 units SQ TID (Preferred with Epidurals) *Enoxaparin/Lovenox 40 mg SQ daily (WT < 150 kg, CrCl > 30 mL/min) *Enoxaparin/Lovenox 30 mg SQ daily (WT < 150 kg, CrCl > 10-29 mL/min) *Enoxaparin/Lovenox 30 mg SQ BID (WT < 150 kg, CrCl > 30 mL/min) AND *Sequential Compression Device (SCD) Assessment and Plan - Assessment (1) Altered mental state Code(s): R41.82 - Altered mental status, unspecified Status: Acute Plan: Patient had altered mental status and was unresponsive at 12:30 pm 04/21. Difficult to assess speech and function and neuro exam with baseline deficits. DDX stroke, UTI, sepsis, hypoglycemia, infection. Troponin 0.16 on admission. Glucose 133. CBC no elevated WBC. Hgb 9.5. Given one aspirin in ED. 04/21 CT head:No acute intracranial abnormality is identified to explain the clinical symptoms, Bilateral areas of encephalomalacia, as above, related to prior infarcts, Chronic findings include generalized atrophy and moderate severity chronic white matter changes. 8/21 chest x-ray: Technically Limited exam grossly negative for acute process Head CTA No intracranial vascular abnormality is identified. Neck CTA no evidence of carotid stenosis. -Admitted to ICU -Neurology consult: -MRI brain -EEG -Eliquis -PT OT eval and speech therapy -IV celebrex -cardiac 2D echo -EKG: no evidence of ischemic changes, low voltage. Serial EKGs ordered and telemetry -Troponin 0.16, Troponin X2 ordered -UA large leukoesterase many bacteria negative nitrate. -UCX pending -PT 10, INR 1 APTT 2.5 -Monitor vitals signs per ischemic stroke protocol and then q4 hrs -lipid profile, B12,A1c (2) Nutrition, metabolism, and development symptoms Code(s): R63.8 - Other symptoms and signs concerning food and fluid intake Status: Acute Plan: Diet: 70 mL/hr NS DVT: SCD and home eliquis Electrolytes: replete as needed - Assessment and Plan 72 year old female PMH multiple previous strokes, right-sided weakness and contractures, left-sided weakness, kidney stones presents with altered mental status. Not tPA candidate and on eliquis at home. 04/21 CT head:No acute intracranial abnormality is identified to explain the clinical symptoms, Bilateral areas of encephalomalacia, as above, related to prior infarcts, Chronic findings include generalized atrophy and moderate severity chronic white matter changes. Chest x-ray limited but negative for acute processes. Head CTA No intracranial vascular abnormality is identified. Neck CTA no evidence of carotid stenosis. Neurology consulted and ordered MRI, EEG, home Eliquis, IV celebrex. H&P: Quality - Stroke Contraindication Not Initiating IV-Tpa: Contraindicated Onset of Symptoms Date: 04/21/18 Onset of Symptoms Time: 12:30 Contraindication Antithromb by Day Two: Contraindicated
[2018-04-21] MEDS: Insulin NovoLOG Aspart Correctional Sugar Inj SQ SCH ×2 (18:00→22:04)
--- NOTE | 2018-04-21 19:30 | P.PNFP ---
Subjective Interval history: Attending note: 72-year-old woman accompanied by her daughter and seen in the emergency room after patient presented with what the family describes as less responsiveness, staring, additional difficulty talking. Notable that the patient has had at least 3 significant CVAs. The initial ones affecting the right side of the body upper and lower extremities. A second stroke affecting her speech and swallowing. The third affecting her left side. Patient does not have a primary physician, she has been admitted to other hospitals and rehab centers. The family was trying to arrange for a house call physician service although she has not yet established. Patient has a G-tube for nutrition and is given Jevity. At her baseline the family states that conversation is not coherent although she will sometimes a meaningful and purposeful statements. She can talk with fairly clear articulation. Moves her left arm. Please refer to resident history and physical for complete discussion of past medical history, family history social history review of systems as able to be obtained noted that they are going to be limited except as recalled by family. Results - Labs Result diagrams: 04/21/18 14:00 Abnormal lab results 04/21/18 04/21/18 04/21/18 Range/Units 13:57 14:00 14:00 RBC 2.98 L (4.00-5.30) mil/mm3 Hgb 9.5 L (11.6-15.3) gm/dL POC Hgb (Calc) (11.6-15.3) g/dL Hct 27.6 L (35.0-46.0) % POC Hct (35-46.0) % MPV 6.4 L (7.0-11.0) fL Neut % (Auto) 78.1 H (16.0-70.0) % Neut # (Auto) 7.9 H (1.8-7.7) th/mm3 POC Sodium (137-144) mmol/L POC Chloride (102-111) mmol/L POC BUN (5-21) mg/dL POC Glucose 133 H (68-110) mg/dl Troponin I 0.16 H (0.02-0.05) ng/mL Urine Clarity (Clear) Urine Occult Blood (Negative) Urine Urobilinogen (Less than 2) mg/dL Ur Leukocyte Esterase (Negative) Urine RBC (0-3) /hpf Urine Bacteria (None) /hpf 04/21/18 04/21/18 Range/Units 14:00 15:15 RBC (4.00-5.30) mil/mm3 Hgb (11.6-15.3) gm/dL POC Hgb (Calc) 8.8 L (11.6-15.3) g/dL Hct (35.0-46.0) % POC Hct 26.0 L (35-46.0) % MPV (7.0-11.0) fL Neut % (Auto) (16.0-70.0) % Neut # (Auto) (1.8-7.7) th/mm3 POC Sodium 135 L (137-144) mmol/L POC Chloride 98 L (102-111) mmol/L POC BUN 40 H (5-21) mg/dL POC Glucose (68-110) mg/dl Troponin I (0.02-0.05) ng/mL Urine Clarity Cloudy H (Clear) Urine Occult Blood Small H (Negative) Urine Urobilinogen 2.0 H (Less than 2) mg/dL Ur Leukocyte Esterase Large H (Negative) Urine RBC 6 H (0-3) /hpf Urine Bacteria Many H (None) /hpf Short CBC 04/21/18 Range/Units 14:00 WBC 10.1 (4.0-11.0) th/mm3 Hgb 9.5 L (11.6-15.3) gm/dL Hct 27.6 L (35.0-46.0) % Plt Count 405 (150-450) th/mm3 Cardiac Enzymes 04/21/18 Range/Units 14:00 Total Creatine Kinase 35 (26-192) U/L Troponin I 0.16 H (0.02-0.05) ng/mL Urine 04/21/18 Range/Units 15:15 Urine Color Yellow (Yellw/Straw) Urine Clarity Cloudy H (Clear) Urine pH 7.0 (5.0-8.5) Ur Specific [place] 1.015 (1.002-1.035) Urine Protein Negative (Neg-Trace) mg/dL Urine Glucose (UA) Negative (Negative) mg/dL - Imaging Impressions Chest X-Ray 04/21/18 13:56 CONCLUSION: Technically Limited exam grossly negative for acute process Head CT 04/21/18 13:56 CONCLUSION: 1. No acute intracranial abnormality is identified to explain the clinical symptoms. 2. Bilateral areas of encephalomalacia, as above, related to prior infarcts. 3. Chronic findings include generalized atrophy and moderate severity chronic white matter changes. These findings were telephoned to Dr. Yap via telephone on 04/21/2018 at 2:11 PM. Head CTA 04/21/18 13:56 CONCLUSION: No intracranial vascular abnormality is identified. These findings were telephoned to Dr. Orr on 04/21/2018 at 2:24 PM. Neck CTA 04/21/18 13:56 CONCLUSION: No evidence of carotid stenosis. Physical Exam Vital signs: Vital Signs 04/21/18 13:55 04/21/18 13:56 04/21/18 13:57 Temperature 97.7 F Pulse Rate 85 60 68 Respiratory Rate 16 Blood Pressure 115/63 Pulse Oximetry 95 95 04/21/18 14:01 04/21/18 15:32 04/21/18 16:00 Temperature Pulse Rate 85 81 Respiratory Rate 16 18 Blood Pressure 127/78 121/69 Pulse Oximetry 97 97 96 04/21/18 17:00 Temperature Pulse Rate 78 Respiratory Rate 18 Blood Pressure 118/59 L Pulse Oximetry 94 L Intake & Output 04/21/18 04/21/18 04/22/18 06:59 18:59 06:59 Weight 44.4 kg Narrative: Vital signs blood pressure 118/59 pulse 78 with extrasystoles respirations 18 temperature afebrile General appearance: Older woman with obvious atrophy of extremities and deformities. These deformities involve the right upper extremity, right and left lower extremity, to a degree the left upper extremity. Patient does not respond to voice, she appears somnolent. HEENT: Pupils are approximately 3 mm and reactive EOMs do not follow a flashlight. Oropharynx extremely dry, essentially no gag reflex. Neck no bruits. Cardiac: S1-S2, no S3 or significant murmurs appreciated. Lungs: Diminished breath sounds clear as auscultated. Abdomen presence of a G-tube mid upper abdomen no organomegaly, no tenderness, no masses evident. Extremities evidence of atrophy, evidence of contractures, feet are perfused, no skin appears in jeopardy. Refer to resident H&P for complete discussion of physical exam. Assessment and Plan - Assessment (1) Altered mental state Code(s): R41.82 - Altered mental status, unspecified Status: Acute Plan: Patient had altered mental status and was unresponsive at 12:30 pm 04/21. Difficult to assess speech and function and neuro exam with baseline deficits. DDX stroke, UTI, sepsis, hypoglycemia, infection. Troponin 0.16 on admission. Glucose 133. CBC no elevated WBC. Hgb 9.5. Given one aspirin in ED. 04/21 CT head:No acute intracranial abnormality is identified to explain the clinical symptoms, Bilateral areas of encephalomalacia, as above, related to prior infarcts, Chronic findings include generalized atrophy and moderate severity chronic white matter changes. 04/21 chest x-ray: Technically Limited exam grossly negative for acute process Head CTA No intracranial vascular abnormality is identified. Neck CTA no evidence of carotid stenosis. -Admitted to ICU -Neurology consult: -MRI brain -EEG -Eliquis -PT OT eval and speech therapy -IV celebrex -cardiac 2D echo -EKG: no evidence of ischemic changes, low voltage. Serial EKGs ordered and telemetry -Troponin 0.16, Troponin X2 ordered -UA large leukoesterase many bacteria negative nitrate. -UCX pending -PT 10, INR 1 APTT 2.5 -Monitor vitals signs per ischemic stroke protocol and then q4 hrs -lipid profile, B12,A1c (2) Nutrition, metabolism, and development symptoms Code(s): R63.8 - Other symptoms and signs concerning food and fluid intake Status: Acute Plan: Diet: 70 mL/hr NS DVT: SCD and home eliquis Electrolytes: replete as needed - Assessment and Plan 72 year old female PMH multiple previous strokes, right-sided weakness and contractures, left-sided weakness, kidney stones presents with altered mental status. Not tPA candidate and on eliquis at home. 04/21 CT head:No acute intracranial abnormality is identified to explain the clinical symptoms, Bilateral areas of encephalomalacia, as above, related to prior infarcts, Chronic findings include generalized atrophy and moderate severity chronic white matter changes. Chest x-ray limited but negative for acute processes. Head CTA No intracranial vascular abnormality is identified. Neck CTA no evidence of carotid stenosis. Neurology consulted and ordered MRI, EEG, home Eliquis, IV celebrex. Clinical assessment: 72-year-old woman with extensive cerebrovascular disease status post multiple strokes and resultant inabilities admitted after an alteration of consciousness from her baseline. Neurology has been consulted , imaging is pending, prognosis is guarded with regards to any improvement, possibly she will be able to get back to her baseline. Case discussed with resident team, orders as written. Richard Chau MD 04/21/2018. Progress Note: Quality - Stroke Contraindication Not Initiating IV-Tpa: Contraindicated Onset of Symptoms Date: 04/21/18 Onset of Symptoms Time: 12:30 Contraindication Antithromb by Day Two: Contraindicated
[2018-04-21] MEDS: ACETAMINOPHEN IV.SIG PRN (21:08)
[2018-04-21 21:14] LABS: Chol/HDL Ratio 1.85 Ratio; HDL Cholesterol 33.9 mg/dL (40.0-60.0); Thyroid Stimulating Hormone 2.13 uIU/mL (0.358-3.740); Troponin I 0.18 ng/mL (0.02-0.05)
[2018-04-21] MEDS: Senna/Docusate Sodium 8.6/50 MG Tablet PO SCH (22:05)
--- NOTE | 2018-04-21 23:30 | ECG ---
Date Performed: 04/21/2018 Time Performed: 20:08:15 PTAGE: 89 years EKG: Sinus rhythm LOW QRS VOLTAGE IN EXTREMITY LEADS BORDERLINE ECG BASELINE ARTIFACT PREVIOUS TRACING : 04/21/2018 15.00 Since the previous tracing, no significant change not ed DOCTOR: Terry Jefferson Interpretating Date/Time 04/21/2018 23:29:14
--- NOTE | 2018-04-21 23:42 | ECG ---
Date Performed: 04/21/2018 Time Performed: 15:00:05 PTAGE: 89 years EKG: SUPRAVENTRICULAR RHYTHM LOW QRS VOLTAGE IN EXTREMITY LEADS BORDERLINE ECG BASELINE ARTIFACT , UNABLE TO DETERMINE V1/V2 NO PREVIOUS TRACING DOCTOR: Terry Jefferson Interpretating Date/Time 04/21/2018 23:40:49
[2018-04-22 06:03] LABS: Chol/HDL Ratio 2.13 Ratio; HDL Cholesterol 34.2 mg/dL (40.0-60.0); Troponin I 0.16 ng/mL (0.02-0.05)
--- NOTE | 2018-04-22 08:21 | P.PNNEU ---
Subjective Subjective Comments: No acute events Active Medications: Active Medications Al Hydroxide/Mg Hydroxide (Milk Of Magnesia Liq) 30 ml PO Q12H PRN PRN Reason: Mild Constipation Albuterol (*Albuterol Neb Periprocedure Only) 2.5 mg NEB Q6HR NEB PRN PRN Reason: Shortness Of Breath Apixaban (Eliquis) 5 mg PO BID [facility] Last Admin: 04/21/18 22:59 Dose: 5 mg Atorvastatin Calcium (Lipitor) 40 mg PO DAILY [facility] Bisacodyl (Dulcolax Supp) 10 mg RECTAL DAILY PRN PRN Reason: SEVERE CONSITIPATION Dextrose (D50w Vial) 50 ml IV.PUSH UNSCH PRN PRN Reason: PER HYPOGLYCEMIA PROTOCOL Diltiazem HCl (Cardizem Cd 24hr) 240 mg PO DAILY [facility] Glucagon (Glucagon Inj) 1 mg OTHER UNSCH PRN PRN Reason: for Hypoglycemia Protocol Acetaminophen (Ofirmev Inj) 670 mg in 67 mls @ 268 mls/hr 15 mg/kg (670 mg) IV.SIG Q6H PRN PRN Reason: PAIN 1-10 AND/OR FEVER >101F Last Infusion: 04/21/18 21:23 Dose: Infused Insulin Aspart (Novolog Insulin Correctional Sugar Inj) 0 unit SQ ACHS [facility]; Protocol Last Admin: 04/21/18 22:04 Dose: Not Given Lactulose (Lactulose Liq) 30 ml PO DAILY PRN PRN Reason: SEVERE CONSITIPATION Lansoprazole (Prevacid Solutab) 30 mg PO DAILY [facility] Senna/Docusate Sodium (Shania-Colace) 1 tab PO BID [facility] Last Admin: 04/21/18 22:05 Dose: Not Given Sennosides (Senokot) 17.2 mg PO Q12H PRN PRN Reason: Moderate Constipation Sodium Chloride (Ns Flush) 2 ml IV.FLUSH PRN PRN PRN Reason: FLUSH AFTER USING IV ACCESS Sodium Chloride (Ns Flush) 2 ml IV.FLUSH BID [facility] Last Admin: 04/21/18 22:04 Dose: 2 ml Allergies/Adverse Reactions: Allergies Allergy/AdvReac Type Severity Reaction Status Date / Time No Known Allergies Allergy Verified 04/21/18 16:24 Review of Systems unobtainable due to mental status Physical Exam Vital signs: Vital Signs 04/21/18 13:55 04/21/18 13:56 04/21/18 13:57 Temperature 97.7 F Pulse Rate 85 60 68 Respiratory Rate 16 Blood Pressure 115/63 Pulse Oximetry 95 95 04/21/18 14:01 04/21/18 15:32 04/21/18 16:00 Temperature Pulse Rate 85 81 Respiratory Rate 16 18 Blood Pressure 127/78 121/69 Pulse Oximetry 97 97 96 04/21/18 17:00 04/21/18 19:56 04/21/18 20:17 Temperature Pulse Rate 78 78 81 Respiratory Rate 18 Blood Pressure 118/59 L 127/58 L Pulse Oximetry 94 L 95 04/21/18 21:00 04/22/18 00:00 04/22/18 04:00 Temperature 98.1 F 97.7 F 98 F Pulse Rate 89 78 82 Respiratory Rate 22 16 16 Blood Pressure 116/59 L 120/58 L 109/54 L Pulse Oximetry 100 100 98 04/22/18 07:00 Temperature Pulse Rate Respiratory Rate Blood Pressure Pulse Oximetry 100 Intake & Output 04/21/18 04/22/18 04/22/18 18:59 06:59 18:59 Intake Total 1067 / 1067 Output Total 1550 / 1550 Balance -483 / -483 Weight 44.4 kg 48.1 kg Intake: IV 1067 / 1067 NS Inj 1,000 ML @ 70 mls/hr IV. 1000 / 1000 CONT .[id number] [facility] Rx#:[id number] Ofirmev Inj 670 mg In 67 ml @ 67 / 67 268 mls/hr IV.SIG Q6H PRN Rx#: [id number] Output: Urine 800 / 800 Urine Amount (Catheter) 750 / 750 Indwelling Urethral Catheter 750 / 750 Other: # Bowel Movements 3 Weight On Admission 44.4 kg Narrative: GENERAL: Thin female lying in bed repeats help help in other words more difficult to decipher SKIN: Warm and dry. No rash. Looks hypo- HEAD: Atraumatic. Normocephalic. EYES: Pupils equal and round. No scleral icterus. No injection or drainage. ENT: No nasal bleeding or discharge. Mucous membranes are dry NECK: Trachea midline. CARDIOVASCULAR: Regular rate and rhythm. RESPIRATORY: No accessory muscle use. Clear to auscultation. GASTROINTESTINAL: Abdomen soft, non-tender, nondistended. PEG tube in place MUSCULOSKELETAL: Extremities without clubbing, cyanosis, or edema. No obvious deformities. NEUROLOGICAL: Awake and alert. Not following mild right gaze preference, not following reduced visual field blink to threat, OU 3 mm sluggish, right spastic hemiparesis, mild left-sided weakness, PEG tube in place gait not assessed secondary to fall risk and level weakness PSYCHIATRIC: Mildly anxious - Urinary Catheter Management Indwelling Urethral Catheter Cath placed during this visit: no Objective Laboratory Results - last 24 hr 04/21/18 04/21/18 04/21/18 13:57 14:00 14:00 WBC 10.1 RBC 2.98 L Hgb 9.5 L POC Hgb (Calc) Hct 27.6 L POC Hct MCV 92.5 MCH 31.8 MCHC 34.4 RDW 13.8 Plt Count 405 MPV 6.4 L Neut % (Auto) 78.1 H Lymph % (Auto) 13.0 [place] % (Auto) 7.1 Eos % (Auto) 0.9 Baso % (Auto) 0.9 Neut # (Auto) 7.9 H Lymph # (Auto) 1.3 [place] # (Auto) 0.7 Eos # (Auto) 0.1 Baso # (Auto) 0.1 WBC Differential . Differential Comment Auto diff final ESR PT 10.0 INR 1.0 APTT 27.5 POC Sodium POC Potassium POC Chloride POC BUN POC Creatinine POC Glucose 133 H Total Creatine Kinase Troponin I Triglycerides Cholesterol LDL Cholesterol, Calc HDL Cholesterol Cholesterol/HDL Ratio Vitamin B12 TSH Urine Color Urine Clarity Urine pH Ur Specific [place] Urine Protein Urine Glucose (UA) Urine Ketones Urine Occult Blood Urine Nitrate Urine Bilirubin Urine Urobilinogen Ur Leukocyte Esterase Urine RBC Urine WBC Urine Bacteria Micro UA Comment Urine Culture Comments Nasal Screen MRSA (PCR) Blood Type Antibody Screen 04/21/18 04/21/18 04/21/18 14:00 14:00 14:00 WBC RBC Hgb POC Hgb (Calc) 8.8 L Hct POC Hct 26.0 L MCV MCH MCHC RDW Plt Count MPV Neut % (Auto) Lymph % (Auto) [place] % (Auto) Eos % (Auto) Baso % (Auto) Neut # (Auto) Lymph # (Auto) [place] # (Auto) Eos # (Auto) Baso # (Auto) WBC Differential Differential Comment ESR PT INR APTT POC Sodium 135 L POC Potassium 4.0 POC Chloride 98 L POC BUN 40 H POC Creatinine 1.3 POC Glucose 106 Total Creatine Kinase 35 Troponin I 0.16 H Triglycerides Cholesterol LDL Cholesterol, Calc HDL Cholesterol Cholesterol/HDL Ratio Vitamin B12 TSH Urine Color Urine Clarity Urine pH Ur Specific [place] Urine Protein Urine Glucose (UA) Urine Ketones Urine Occult Blood Urine Nitrate Urine Bilirubin Urine Urobilinogen Ur Leukocyte Esterase Urine RBC Urine WBC Urine Bacteria Micro UA Comment Urine Culture Comments Nasal Screen MRSA (PCR) Blood Type A Positive Antibody Screen Negative 04/21/18 04/21/18 04/21/18 14:00 15:15 17:39 WBC RBC Hgb POC Hgb (Calc) Hct POC Hct MCV MCH MCHC RDW Plt Count MPV Neut % (Auto) Lymph % (Auto) [place] % (Auto) Eos % (Auto) Baso % (Auto) Neut # (Auto) Lymph # (Auto) [place] # (Auto) Eos # (Auto) Baso # (Auto) WBC Differential Differential Comment ESR 69 H PT INR APTT POC Sodium POC Potassium POC Chloride POC BUN POC Creatinine POC Glucose 98 Total Creatine Kinase Troponin I Triglycerides Cholesterol LDL Cholesterol, Calc HDL Cholesterol Cholesterol/HDL Ratio Vitamin B12 TSH Urine Color Yellow Urine Clarity Cloudy H Urine pH 7.0 Ur Specific [place] 1.015 Urine Protein Negative Urine Glucose (UA) Negative Urine Ketones Negative Urine Occult Blood Small H Urine Nitrate Negative Urine Bilirubin Negative Urine Urobilinogen 2.0 H Ur Leukocyte Esterase Large H Urine RBC 6 H Urine WBC Urine Bacteria Many H Micro UA Comment Cath-culture ind Urine Culture Comments Cath-cult indicated Nasal Screen MRSA (PCR) Blood Type Antibody Screen 04/21/18 04/21/18 04/21/18 20:12 21:30 22:03 WBC RBC Hgb POC Hgb (Calc) Hct POC Hct MCV MCH MCHC RDW Plt Count MPV Neut % (Auto) Lymph % (Auto) [place] % (Auto) Eos % (Auto) Baso % (Auto) Neut # (Auto) Lymph # (Auto) [place] # (Auto) Eos # (Auto) Baso # (Auto) WBC Differential Differential Comment ESR PT INR APTT POC Sodium POC Potassium POC Chloride POC BUN POC Creatinine POC Glucose 93 Total Creatine Kinase Troponin I 0.18 H Triglycerides 117 Cholesterol 63 L LDL Cholesterol, Calc 6 HDL Cholesterol 33.9 L Cholesterol/HDL Ratio 1.85 Vitamin B12 1885 H TSH 2.130 Urine Color Urine Clarity Urine pH Ur Specific [place] Urine Protein Urine Glucose (UA) Urine Ketones Urine Occult Blood Urine Nitrate Urine Bilirubin Urine Urobilinogen Ur Leukocyte Esterase Urine RBC Urine WBC Urine Bacteria Micro UA Comment Urine Culture Comments Nasal Screen MRSA (PCR) Mrsa detected Blood Type Antibody Screen 04/22/18 04:30 WBC RBC Hgb POC Hgb (Calc) Hct POC Hct MCV MCH MCHC RDW Plt Count MPV Neut % (Auto) Lymph % (Auto) [place] % (Auto) Eos % (Auto) Baso % (Auto) Neut # (Auto) Lymph # (Auto) [place] # (Auto) Eos # (Auto) Baso # (Auto) WBC Differential Differential Comment ESR PT INR APTT POC Sodium POC Potassium POC Chloride POC BUN POC Creatinine POC Glucose Total Creatine Kinase Troponin I 0.16 H Triglycerides 156 H Cholesterol 73 L LDL Cholesterol, Calc 8 HDL Cholesterol 34.2 L Cholesterol/HDL Ratio 2.13 Vitamin B12 TSH Urine Color Urine Clarity Urine pH Ur Specific [place] Urine Protein Urine Glucose (UA) Urine Ketones Urine Occult Blood Urine Nitrate Urine Bilirubin Urine Urobilinogen Ur Leukocyte Esterase Urine RBC Urine WBC Urine Bacteria Micro UA Comment Urine Culture Comments Nasal Screen MRSA (PCR) Blood Type Antibody Screen Review/Management - Diagnosis (1) Encephalopathy acute Code(s): G93.40 - Encephalopathy, unspecified Status: Acute Current Visit: Yes (2) Chronic ischemic left MCA stroke Code(s): I69.30 - Unspecified sequelae of cerebral infarction Status: Acute Current Visit: Yes (3) Chronic ischemic right MCA stroke Code(s): I69.30 - Unspecified sequelae of cerebral infarction Status: Acute Current Visit: Yes (4) Chronic left arterial ischemic stroke, MCA (middle cerebral artery) Code(s): I69.30 - Unspecified sequelae of cerebral infarction Status: Acute Current Visit: Yes - Review/Management Plan: Etiology; possible new infarct, versus complex partial seizure, versus metabolic CT brain carotids no significant vaso-occlusive disease Possible vascular dementia Recommendations MRI brain; pending EEG; pending Hydration; oral care Continue Eliquis for now until imaging completed. If new infarct seen we will change her anticoagulant. Follow-up urine culture PT OT evaluation We will change to Keppra May need low dose Seroquel/Risperdal await completion of above studies first Follow exam
[2018-04-22] MEDS: Senna/Docusate Sodium 8.6/50 MG Tablet PO SCH ×2 (08:54→20:23)
[2018-04-22] MEDS: dilTIAZem CD 240 MG Capsule PO SCH (08:54)
[2018-04-22] MEDS: Insulin NovoLOG Aspart Correctional Sugar Inj SQ SCH ×4 (08:55→20:55)
[2018-04-22] MEDS: ACETAMINOPHEN IV.SIG PRN (08:57)
--- NOTE | 2018-04-22 10:51 | P.PNFP ---
Subjective Interval history: Patient was seen and examined this morning by the medical team. She is calling out repetitively but does not directly provide any history. Nurse at bedside states family reports this repetitive speech is new from her baseline. <Faith Russell - 04/22/18 10:51> Results - Labs Result diagrams: 04/22/18 12:16 04/22/18 12:16 <Chau,Richard E - 04/22/18 13:48> Abnormal lab results 04/21/18 04/21/18 04/21/18 Range/Units 13:57 14:00 14:00 WBC (4.0-11.0) th/mm3 RBC 2.98 L (4.00-5.30) mil/mm3 Hgb 9.5 L (11.6-15.3) gm/dL POC Hgb (Calc) (11.6-15.3) g/dL Hct 27.6 L (35.0-46.0) % POC Hct (35-46.0) % MPV 6.4 L (7.0-11.0) fL Neut % (Auto) 78.1 H (16.0-70.0) % Neut # (Auto) 7.9 H (1.8-7.7) th/mm3 ESR (0-30) mm/hr POC Sodium (137-144) mmol/L POC Chloride (102-111) mmol/L POC BUN (5-21) mg/dL POC Glucose 133 H (68-110) mg/dl Troponin I 0.16 H (0.02-0.05) ng/mL Triglycerides (42-150) mg/dL Cholesterol (120-200) mg/dL HDL Cholesterol (40.0-60.0) mg/dL Vitamin B12 (193-986) pg/mL Urine Clarity (Clear) Urine Occult Blood (Negative) Urine Urobilinogen (Less than 2) mg/dL Ur Leukocyte Esterase (Negative) Urine RBC (0-3) /hpf Urine Bacteria (None) /hpf 04/21/18 04/21/18 04/21/18 Range/Units 14:00 14:00 15:15 WBC (4.0-11.0) th/mm3 RBC (4.00-5.30) mil/mm3 Hgb (11.6-15.3) gm/dL POC Hgb (Calc) 8.8 L (11.6-15.3) g/dL Hct (35.0-46.0) % POC Hct 26.0 L (35-46.0) % MPV (7.0-11.0) fL Neut % (Auto) (16.0-70.0) % Neut # (Auto) (1.8-7.7) th/mm3 ESR 69 H (0-30) mm/hr POC Sodium 135 L (137-144) mmol/L POC Chloride 98 L (102-111) mmol/L POC BUN 40 H (5-21) mg/dL POC Glucose (68-110) mg/dl Troponin I (0.02-0.05) ng/mL Triglycerides (42-150) mg/dL Cholesterol (120-200) mg/dL HDL Cholesterol (40.0-60.0) mg/dL Vitamin B12 (193-986) pg/mL Urine Clarity Cloudy H (Clear) Urine Occult Blood Small H (Negative) Urine Urobilinogen 2.0 H (Less than 2) mg/dL Ur Leukocyte Esterase Large H (Negative) Urine RBC 6 H (0-3) /hpf Urine Bacteria Many H (None) /hpf 04/21/18 04/22/18 04/22/18 Range/Units 20:12 04:30 12:16 WBC 11.7 H (4.0-11.0) th/mm3 RBC 3.22 L (4.00-5.30) mil/mm3 Hgb 10.2 L (11.6-15.3) gm/dL POC Hgb (Calc) (11.6-15.3) g/dL Hct 30.5 L (35.0-46.0) % POC Hct (35-46.0) % MPV (7.0-11.0) fL Neut % (Auto) 82.4 H (16.0-70.0) % Neut # (Auto) 9.6 H (1.8-7.7) th/mm3 ESR (0-30) mm/hr POC Sodium (137-144) mmol/L POC Chloride (102-111) mmol/L POC BUN (5-21) mg/dL POC Glucose (68-110) mg/dl Troponin I 0.18 H 0.16 H (0.02-0.05) ng/mL Triglycerides 156 H (42-150) mg/dL Cholesterol 63 L 73 L (120-200) mg/dL HDL Cholesterol 33.9 L 34.2 L (40.0-60.0) mg/dL Vitamin B12 1885 H (193-986) pg/mL Urine Clarity (Clear) Urine Occult Blood (Negative) Urine Urobilinogen (Less than 2) mg/dL Ur Leukocyte Esterase (Negative) Urine RBC (0-3) /hpf Urine Bacteria (None) /hpf Short CBC 04/21/18 04/22/18 Range/Units 14:00 12:16 WBC 10.1 11.7 H (4.0-11.0) th/mm3 Hgb 9.5 L 10.2 L (11.6-15.3) gm/dL Hct 27.6 L 30.5 L (35.0-46.0) % Plt Count 405 392 (150-450) th/mm3 Cardiac Enzymes 04/21/18 04/21/18 04/22/18 Range/Units 14:00 20:12 04:30 Total Creatine Kinase 35 (26-192) U/L Troponin I 0.16 H 0.18 H 0.16 H (0.02-0.05) ng/mL Urine 04/21/18 Range/Units 15:15 Urine Color Yellow (Yellw/Straw) Urine Clarity Cloudy H (Clear) Urine pH 7.0 (5.0-8.5) Ur Specific [place] 1.015 (1.002-1.035) Urine Protein Negative (Neg-Trace) mg/dL Urine Glucose (UA) Negative (Negative) mg/dL <Richard Chau E - 04/22/18 13:48> Abnormal lab results 04/21/18 04/21/18 04/21/18 Range/Units 13:57 14:00 14:00 RBC 2.98 L (4.00-5.30) mil/mm3 Hgb 9.5 L (11.6-15.3) gm/dL POC Hgb (Calc) (11.6-15.3) g/dL Hct 27.6 L (35.0-46.0) % POC Hct (35-46.0) % MPV 6.4 L (7.0-11.0) fL Neut % (Auto) 78.1 H (16.0-70.0) % Neut # (Auto) 7.9 H (1.8-7.7) th/mm3 ESR (0-30) mm/hr POC Sodium (137-144) mmol/L POC Chloride (102-111) mmol/L POC BUN (5-21) mg/dL POC Glucose 133 H (68-110) mg/dl Troponin I 0.16 H (0.02-0.05) ng/mL Triglycerides (42-150) mg/dL Cholesterol (120-200) mg/dL HDL Cholesterol (40.0-60.0) mg/dL Vitamin B12 (193-986) pg/mL Urine Clarity (Clear) Urine Occult Blood (Negative) Urine Urobilinogen (Less than 2) mg/dL Ur Leukocyte Esterase (Negative) Urine RBC (0-3) /hpf Urine Bacteria (None) /hpf 04/21/18 04/21/18 04/21/18 Range/Units 14:00 14:00 15:15 RBC (4.00-5.30) mil/mm3 Hgb (11.6-15.3) gm/dL POC Hgb (Calc) 8.8 L (11.6-15.3) g/dL Hct (35.0-46.0) % POC Hct 26.0 L (35-46.0) % MPV (7.0-11.0) fL Neut % (Auto) (16.0-70.0) % Neut # (Auto) (1.8-7.7) th/mm3 ESR 69 H (0-30) mm/hr POC Sodium 135 L (137-144) mmol/L POC Chloride 98 L (102-111) mmol/L POC BUN 40 H (5-21) mg/dL POC Glucose (68-110) mg/dl Troponin I (0.02-0.05) ng/mL Triglycerides (42-150) mg/dL Cholesterol (120-200) mg/dL HDL Cholesterol (40.0-60.0) mg/dL Vitamin B12 (193-986) pg/mL Urine Clarity Cloudy H (Clear) Urine Occult Blood Small H (Negative) Urine Urobilinogen 2.0 H (Less than 2) mg/dL Ur Leukocyte Esterase Large H (Negative) Urine RBC 6 H (0-3) /hpf Urine Bacteria Many H (None) /hpf 04/21/18 04/22/18 Range/Units 20:12 04:30 RBC (4.00-5.30) mil/mm3 Hgb (11.6-15.3) gm/dL POC Hgb (Calc) (11.6-15.3) g/dL Hct (35.0-46.0) % POC Hct (35-46.0) % MPV (7.0-11.0) fL Neut % (Auto) (16.0-70.0) % Neut # (Auto) (1.8-7.7) th/mm3 ESR (0-30) mm/hr POC Sodium (137-144) mmol/L POC Chloride (102-111) mmol/L POC BUN (5-21) mg/dL POC Glucose (68-110) mg/dl Troponin I 0.18 H 0.16 H (0.02-0.05) ng/mL Triglycerides 156 H (42-150) mg/dL Cholesterol 63 L 73 L (120-200) mg/dL HDL Cholesterol 33.9 L 34.2 L (40.0-60.0) mg/dL Vitamin B12 1885 H (193-986) pg/mL Urine Clarity (Clear) Urine Occult Blood (Negative) Urine Urobilinogen (Less than 2) mg/dL Ur Leukocyte Esterase (Negative) Urine RBC (0-3) /hpf Urine Bacteria (None) /hpf Short CBC 04/21/18 Range/Units 14:00 WBC 10.1 (4.0-11.0) th/mm3 Hgb 9.5 L (11.6-15.3) gm/dL Hct 27.6 L (35.0-46.0) % Plt Count 405 (150-450) th/mm3 Cardiac Enzymes 04/21/18 04/21/18 04/22/18 Range/Units 14:00 20:12 04:30 Total Creatine Kinase 35 (26-192) U/L Troponin I 0.16 H 0.18 H 0.16 H (0.02-0.05) ng/mL Urine 04/21/18 Range/Units 15:15 Urine Color Yellow (Yellw/Straw) Urine Clarity Cloudy H (Clear) Urine pH 7.0 (5.0-8.5) Ur Specific [place] 1.015 (1.002-1.035) Urine Protein Negative (Neg-Trace) mg/dL Urine Glucose (UA) Negative (Negative) mg/dL <Faith Russell Felicitas - 04/22/18 10:51> - Imaging Impressions Chest X-Ray 04/21/18 13:56 CONCLUSION: Technically Limited exam grossly negative for acute process Head CT 04/21/18 13:56 CONCLUSION: 1. No acute intracranial abnormality is identified to explain the clinical symptoms. 2. Bilateral areas of encephalomalacia, as above, related to prior infarcts. 3. Chronic findings include generalized atrophy and moderate severity chronic white matter changes. These findings were telephoned to Dr. Yap via telephone on 04/21/2018 at 2:11 PM. Head CTA 04/21/18 13:56 CONCLUSION: No intracranial vascular abnormality is identified. These findings were telephoned to Dr. Orr on 04/21/2018 at 2:24 PM. Neck CTA 04/21/18 13:56 CONCLUSION: No evidence of carotid stenosis. <Richard Chau - 04/22/18 13:48> Impressions Chest X-Ray 04/21/18 13:56 CONCLUSION: Technically Limited exam grossly negative for acute process Head CT 04/21/18 13:56 CONCLUSION: 1. No acute intracranial abnormality is identified to explain the clinical symptoms. 2. Bilateral areas of encephalomalacia, as above, related to prior infarcts. 3. Chronic findings include generalized atrophy and moderate severity chronic white matter changes. These findings were telephoned to Dr. Yap via telephone on 04/21/2018 at 2:11 PM. Head CTA 04/21/18 13:56 CONCLUSION: No intracranial vascular abnormality is identified. These findings were telephoned to Dr. Orr on 04/21/2018 at 2:24 PM. Neck CTA 04/21/18 13:56 CONCLUSION: No evidence of carotid stenosis. <Faith Russell Felicitsa - 04/22/18 10:51> Physical Exam Vital signs: Vital Signs 04/21/18 13:55 04/21/18 13:56 04/21/18 13:57 Temperature 97.7 F Pulse Rate 85 60 68 Respiratory Rate 16 Blood Pressure 115/63 Pulse Oximetry 95 95 04/21/18 14:01 04/21/18 15:32 04/21/18 16:00 Temperature Pulse Rate 85 81 Respiratory Rate 16 18 Blood Pressure 127/78 121/69 Pulse Oximetry 97 97 96 04/21/18 17:00 04/21/18 19:56 04/21/18 20:17 Temperature Pulse Rate 78 78 81 Respiratory Rate 18 Blood Pressure 118/59 L 127/58 L Pulse Oximetry 94 L 95 04/21/18 21:00 04/22/18 00:00 04/22/18 04:00 Temperature 98.1 F 97.7 F 98 F Pulse Rate 89 78 82 Respiratory Rate 22 16 16 Blood Pressure 116/59 L 120/58 L 109/54 L Pulse Oximetry 100 100 98 04/22/18 07:00 04/22/18 08:00 04/22/18 12:00 Temperature 98.5 F 98.1 F Pulse Rate 98 H 85 Respiratory Rate 26 H 10 L Blood Pressure 101/69 110/62 Pulse Oximetry 100 100 100 Intake & Output 04/21/18 04/22/18 04/22/18 18:59 06:59 18:59 Intake Total 1067 / 1067 167 / 167 Output Total 1550 / 1550 Balance -483 / -483 167 / 167 Weight 44.4 kg 48.1 kg Intake: IV 1067 / 1067 167 / 167 NS Inj 1,000 ML @ 70 mls/hr IV. 1000 / 1000 CONT .[id number] [facility] Rx#:[id number] Ofirmev Inj 670 mg In 67 ml @ 67 / 67 67 / 67 268 mls/hr IV.SIG Q6H PRN Rx#: [id number] Rocephin Inj 1,000 MG In NS Inj 100 / 100 100 ML @ 200 mls/hr IV.SIG Q24H [facility] Rx#:[id number] Output: Urine 800 / 800 Urine Amount (Catheter) 750 / 750 Indwelling Urethral Catheter 750 / 750 Other: Date of Last Bowel Movement 04/22/18 # Bowel Movements 3 Weight On Admission 44.4 kg <Richard Chau - 04/22/18 13:48> Vital Signs 04/21/18 13:55 04/21/18 13:56 04/21/18 13:57 Temperature 97.7 F Pulse Rate 85 60 68 Respiratory Rate 16 Blood Pressure 115/63 Pulse Oximetry 95 95 04/21/18 14:01 04/21/18 15:32 04/21/18 16:00 Temperature Pulse Rate 85 81 Respiratory Rate 16 18 Blood Pressure 127/78 121/69 Pulse Oximetry 97 97 96 04/21/18 17:00 04/21/18 19:56 04/21/18 20:17 Temperature Pulse Rate 78 78 81 Respiratory Rate 18 Blood Pressure 118/59 L 127/58 L Pulse Oximetry 94 L 95 04/21/18 21:00 04/22/18 00:00 04/22/18 04:00 Temperature 98.1 F 97.7 F 98 F Pulse Rate 89 78 82 Respiratory Rate 22 16 16 Blood Pressure 116/59 L 120/58 L 109/54 L Pulse Oximetry 100 100 98 04/22/18 07:00 04/22/18 08:00 Temperature 98.5 F Pulse Rate 98 H Respiratory Rate 26 H Blood Pressure 101/69 Pulse Oximetry 100 100 Intake & Output 04/21/18 04/22/18 04/22/18 18:59 06:59 18:59 Intake Total 1067 / 1067 167 / 167 Output Total 1550 / 1550 Balance -483 / -483 167 / 167 Weight 44.4 kg 48.1 kg Intake: IV 1067 / 1067 167 / 167 NS Inj 1,000 ML @ 70 mls/hr IV. 1000 / 1000 CONT .[id number] [facility] Rx#:[id number] Ofirmev Inj 670 mg In 67 ml @ 67 / 67 67 / 67 268 mls/hr IV.SIG Q6H PRN Rx#: [id number] Rocephin Inj 1,000 MG In NS Inj 100 / 100 100 ML @ 200 mls/hr IV.SIG Q24H [facility] Rx#:[id number] Output: Urine 800 / 800 Urine Amount (Catheter) 750 / 750 Indwelling Urethral Catheter 750 / 750 Other: Date of Last Bowel Movement 04/22/18 # Bowel Movements 3 Weight On Admission 44.4 kg <Faith Russell L - 04/22/18 10:51> Narrative: GENERAL: Thin female lying in bed repeats "Sam" and "help me" and other undecipherable words SKIN: Warm and dry. No rash. Scattered ecchymoses noted. HEAD: Atraumatic. Normocephalic. EYES: Pupils equal and round. No scleral icterus. No injection or drainage. ENT: No nasal bleeding or discharge. Mucous membranes are dry NECK: Trachea midline. CARDIOVASCULAR: Regular rate and rhythm. No murmurs. RESPIRATORY: No accessory muscle use. Clear to auscultation, no rales or rhonchi. GASTROINTESTINAL: Abdomen soft, non-tender, nondistended. PEG tube in place clean and dry skin. MUSCULOSKELETAL: Extremities without clubbing, cyanosis, or edema. No obvious deformities. NEUROLOGICAL: Awake and alert. Not following mild right gaze preference, not following commands. Blinks spontaneous and to light. OU 3mm with reactivity to light and accommodation. Right spastic hemiparesis. Left UE moving spontaneously. PSYCHIATRIC: Appears moderately anxious <Faith Russell - 04/22/18 11:50> - Urinary Catheter Management Indwelling Urethral Catheter Cath placed during this visit: no <Richard Chau Andre - 04/22/18 13:48> no <Faith Russell - 04/22/18 12:04> Assessment and Plan - Assessment (1) Acute ischemic stroke Code(s): I63.9 - Cerebral infarction, unspecified Status: Acute (2) Nutrition, metabolism, and development symptoms Code(s): R63.8 - Other symptoms and signs concerning food and fluid intake Status: Acute (3) Urinary tract infection Code(s): N39.0 - Urinary tract infection, site not specified Status: Acute <Richard Chau Andre - 04/22/18 13:48> (1) Acute ischemic stroke Code(s): I63.9 - Cerebral infarction, unspecified Status: Acute Plan: Unclear etiology at this time. Patient possibly with new infarct vs other neurologic etiology CT head did not have acute findings to suggest bleed or infection Patient was less responsive yesterday, so possibly improving. She is more alert today and appears to have delirium, but baseline is not entirely clear. Awaiting MRI, echo, EEG results Neurology following: recommending continued Eliquis. Pending imaging and further workup may change medications. IV Celebrex started 04/21, switching to Keppra today, will follow recommendations. PT/OT evaluation Speech: nothing by mouth. Will re-initiate tube feeds today Continue to monitor clinically Palliative care consult per neuro Continue marino for now Urinalysis concerning for UTI, Rocephin initiated 04/22, f/u culture Hospital Course: Patient had altered mental status and was unresponsive at 12:30 pm 04/21. Difficult to assess speech and function and neuro exam with baseline deficits. DDX stroke, UTI, sepsis, hypoglycemia, infection. Troponin 0.16 on admission. Glucose 133. CBC no elevated WBC. Hgb 9.5. Given one aspirin in ED. 04/21 CT head:No acute intracranial abnormality is identified to explain the clinical symptoms, Bilateral areas of encephalomalacia, as above, related to prior infarcts, Chronic findings include generalized atrophy and moderate severity chronic white matter changes. 04/21 chest x-ray: Technically Limited exam grossly negative for acute process Head CTA No intracranial vascular abnormality is identified. Neck CTA no evidence of carotid stenosis. -Admitted to ICU -Neurology consult: -MRI brain -EEG -Eliquis -PT OT eval and speech therapy -IV celebrex --> Keppra -cardiac 2D echo -EKG: no evidence of ischemic changes, low voltage. Serial EKGs ordered and telemetry showing no changes -Troponin 0.16, 0.18, 0.16 -UA large leukoesterase many bacteria negative nitrate. -UCX pending -PT 10, INR 1 APTT 2.5 -Monitor vitals signs per ischemic stroke protocol and then q4 hrs -lipid profile wnl, TSH wnl, B12 elevated, A1c pending (2) Nutrition, metabolism, and development symptoms Code(s): R63.8 - Other symptoms and signs concerning food and fluid intake Status: Acute Plan: Diet: 70 mL/hr NS. Will transition to tube feed today, on Jevity at home DVT: SCD and home eliquis Electrolytes: replete as needed (3) Urinary tract infection Code(s): N39.0 - Urinary tract infection, site not specified Status: Acute Plan: Noted to have abnormal UA Urine culture pending Rocephin 1g daily (04/22-current) Will switch to PO antibiotic, likely fluoroquinolone, pending culture <Faith Russell - 04/22/18 12:02> - Assessment and Plan Attending note: 04/22/2018. Patient seen and evaluated with the resident team. Agree with resident team evaluation and orders as recorded. Richard Chau MD <Richard Chau - 04/22/18 13:48> 72-year-old female PMH multiple previous strokes, right-sided weakness and contractures, left-sided weakness, kidney stones presents with altered mental status. Not tPA candidate and on Eliquis at home. 04/21 CT head: no acute intracranial abnormality is identified to explain the clinical symptoms, Bilateral areas of encephalomalacia, as above, related to prior infarcts, Chronic findings include generalized atrophy and moderate severity chronic white matter changes. Chest x-ray limited but negative for acute processes. Head CTA No intracranial vascular abnormality is identified. Neck CTA no evidence of carotid stenosis. Neurology consulted and ordered MRI, EEG, echo, home Eliquis to continue, IV celebrex on 04/21, transitioned to keppra on 04/22, following. Palliative care consulted. <Faith Russell - 04/22/18 12:04> Discharge Planning: Unclear disposition, palliative care consulted, neurology consulted, workup pending. She is critically ill at this time and patient has a chronically deteriorating condition based on presentation, will follow <Faith Russell - 04/22/18 12:04> Progress Note: Quality - Stroke Contraindication Not Initiating IV-Tpa: Contraindicated <Faith Russell - 10:51> Onset of Symptoms Date: 04/21/18 <Faith Russell - 04/22/18 10:51> Onset of Symptoms Time: 12:30 <Faith Russell - 04/22/18 10:51> Contraindication Antithromb by Day Two: Contraindicated <Faith Russell - 10:51>
--- NOTE | 2018-04-22 10:59 | P.CONPAL ---
Consult Service: Palliative Care Requesting Physician: Tai Orr Reason for Consult: a. To assist with evaluation and management of symptoms including: Altered mental status, anxiety, weakness, pain b. To assist medical decision maker(s) with: better understanding of current medical conditions; weighing benefits/burdens of medical treatment options; making medical treatment decisions. Primary Care Provider: UNKNOWN History of Present Illness History of Present Illness: This is a 72 year old admitted to [facility] 04/21/2018 with altered mental status, brought to [facility] via EMS. She does have a history of multiple previous strokes, right sided weakness and contractures, left sided weakness, kidney stones, dysphagia, who at baseline, had been able to talk normally, who suddenly became less responsive, disoriented, staring off with worse difficulty speaking and expressing her thoughts. Symptom onset was approximately 30-45 minutes prior to [place] [facility] Clinical presentation showed disorientation with minimal ability to follow commands. She has a chronic PEG tube. She had reportedly been on Coumadin in the past however her presenting INR was 1. Initial consideration of TPA was canceled as the family stated she was on Eliquis. Neurology was consulted for stroke alert. Her previous strokes started in November 2017 occurring with right-sided weakness rendering her unable to walk and paralyzing half of her throat, however she was still able to eat. She had a subsequent stroke in December, worsening her dysphasia and requiring a PEG tube to be placed. She again stroked in January weakening her left side while she was at [facility] for rehab. While she had some dysarthria, she was able to communicate with the family at that time. Per the family her Eliquis had been stopped while she was at [facility], and she was converted to aspirin. She returned home to live with her until yesterday, when her symptoms returned. She had continued taking Eliquis at home. Clinical data on presentation: * Her presenting NIH stroke scale score was 19 with level of consciousness at 1 , orientation at 2, command response at 2, I gaze movement at 1, visual blair at 0, facial movement at 0, left arm motor function at 1, right arm motor function at 3, left leg motor function at 1, right leg motor functions and 3, limb ataxia at 1, sensory loss to, best language at 1, articulation at 1 and extinction or inattention since at 0. * Presenting CT of the brain did not show any signs of acute intracranial injuries or hemorrhage with bilateral areas of encephalomalacia related to prior infarcts. * Head CTA did not show any acute occlusion. * Neck CTA showed no evidence of carotid stenosis. * Presenting labs showed WBC 10.1, hemoglobin 9.5, hematocrit 27.6, platelets 405, PT 10.0, INR 1.0, APTT 27.5, sodium 135, potassium 4.0, BUN 40, creatinine 1.3, T CK 35, troponin 0.16 * Urinalysis showed a cloudy yellow specimen with specific gravity 1.015, small occult blood, large leukocyte esterase, many urine bacteria, culture indicated. * Home medications reported as albuterol as needed, Eliquis 2.5 mg twice daily, atorvastatin 40 mg daily, diltiazem 120 mg twice daily, docusate 100 mg daily, hydroxyzine 25 mg 4 times daily, as needed, lansoprazole 30 mg daily and tramadol 25 mg every 4 as needed. Neurology has requested a 2D echocardiogram, brain MRI without contrast, EEG and speech therapy evaluation. This time speech therapy has continued n.p.o. status and has initiated tube feeding. Interrogation of the loop recorder was performed by the [employer] licensing representative showing no atrial fibrillation, tachycardic or bradycardic episodes on her device. There were 3 episodes that appeared to be pauses, which were found to be under sensing and not true pauses. Much of the history was obtained from the daughter at bedside. She had previously been evaluated at [facility] for chronic fatigue which had been present for the prior 2 years. At that time, a [employer] loop recorder was placed. She was told there was some thickening of her heart, however those records are not available. Her daughter, Rae, states she had undergone what sounds like a jejunoileal bypass in the , with subsequent malabsorption syndrome and chronic diarrhea. Postprocedure, the daughter states that she required blood transfusions and sustained a "liver infection" with resultant jaundice which eventually resolved. At this evaluation, she presents as a thin , elderly female with multiple ecchymotic areas scattered over her skin, both extremities and trunk. Multiple skin tears and abrasions, both from poor nutrition and poor skin integrity, but also from falling out of bed at home. The family states they were unable to obtain a hospital bed from the insurance in a timely manner and in spite of placing pillows and after market barrier devices, the patient sustained several falls from the bed. She is somnolent, not making eye contact or following commands. She occasionally appears agitated and anxious then speaks out "help", "pain", "". She is unable to quantify or qualify the anxiety or pain. . Function/Cognitive Trajectory: She had previously been active frequently riding her bicycle however declining over the last 2 years, sustaining a 60 pound unintentional weight loss. Since her stroke in November, she has sustained continual decline of eventually becoming bedbound through the subsequent strokes. Since initiation of tube feeding, her chronic diarrhea has become significantly worse, requiring shania-care and brief change every 30-60 minutes around the clock. This has impacted skin integrity, resulting in irritation and skin breakdown in the rectal area. She receives 24- hour care at home, with the caring for her during the day and a nighttime caregiver. . Review of Systems Patient is aphasic, confused, nonverbal and unable to provide their own ROS. 10 part ROS taken as best as possible from medical record and available family. Constitutional: Reports fatigue, Reports weakness, Reports weight loss Eyes: Reports double vision Ears, Nose, Mouth, and Throat: Reports difficulty swallowing Gastrointestinal: Reports other (Diarrhea) Musculoskeletal: Reports muscle weakness Skin/Breast: Reports yellowing of the skin Neurologic: Reports localized weakness Hematologic/Lymphatic: Reports easy bruising PMFSH - History History Provided By: Production Grip / EMT - Medical History Medical History: Medical History (Last Updated 04/22/18 @ 14:49 by [facility]) Chronic renal insufficiency, stage III (moderate) (Acute) Diarrhea due to malabsorption (Acute) Left sided cerebral hemisphere cerebrovascular accident (Acute) Right sided cerebral infarction (Acute) Dysphagia (Acute) CVA (cerebral vascular accident) (Acute) - Surgical History Surgical History: Surgical History (Last Updated 04/22/18 @ 14:50 by [facility]) PEG (percutaneous endoscopic gastrostomy) status (Acute) H/O resection of stomach (Acute) History of loop recorder - Family History Family History: Family History (Last Updated 04/22/18 @ 14:52 by [facility]) Mother Dementia Father Cardiovascular disease Father Cerebrovascular accident - Tobacco History Second Hand Smoke Exposure: No Tobacco Use In Past 30 Days: No Smoking Status: Former smoker Tobacco Type: Cigarettes - Alcohol History How Often Do You Have a Drink Containing Alcohol: Never - Substance Use Type Marijuana Status: Early Remission Route Used: By Mouth Frequency: Several marijuana cigarettes daily since her 20s. Stopped 4 months ago Reason for Use: Feels Good - Travel History History of Recent Travel: No Recent Travel in the [place] Within the Last 8 Weeks: No Recent Travel Out of the Country Within the Last 8 Weeks: No - Immunization History Tetanus Immunization: Unable to Assess Hx Influenza Vaccine This Season: Unable to Assess Medications and Allergies Active Medications: Active Medications Al Hydroxide/Mg Hydroxide (Milk Of Magnesia Liq) 30 ml PO Q12H PRN PRN Reason: Mild Constipation Albuterol (*Albuterol Neb Periprocedure Only) 2.5 mg NEB Q6HR NEB PRN PRN Reason: Shortness Of Breath Apixaban (Eliquis) 5 mg PO BID [facility] Last Admin: 04/22/18 08:54 Dose: 5 mg Atorvastatin Calcium (Lipitor) 40 mg PO DAILY [facility] Last Admin: 04/22/18 08:54 Dose: 40 mg Bisacodyl (Dulcolax Supp) 10 mg RECTAL DAILY PRN PRN Reason: SEVERE CONSITIPATION Dextrose (D50w Vial) 50 ml IV.PUSH UNSCH PRN PRN Reason: PER HYPOGLYCEMIA PROTOCOL Diltiazem HCl (Cardizem Cd 24hr) 240 mg PO DAILY [facility] Last Admin: 04/22/18 08:54 Dose: 240 mg Glucagon (Glucagon Inj) 1 mg OTHER UNSCH PRN PRN Reason: for Hypoglycemia Protocol Acetaminophen (Ofirmev Inj) 670 mg in 67 mls @ 268 mls/hr 15 mg/kg (670 mg) IV.SIG Q6H PRN PRN Reason: PAIN 1-10 AND/OR FEVER >101F Last Infusion: 04/22/18 09:16 Dose: Infused Ceftriaxone Sodium 1,000 mg/ (Sodium Chloride) 100 mls @ 200 mls/hr IV.SIG Q24H [facility] Last Infusion: 04/22/18 10:00 Dose: Infused Insulin Aspart (Novolog Insulin Correctional Sugar Inj) 0 unit SQ ACHS [facility]; Protocol Last Admin: 04/22/18 08:55 Dose: Not Given Lactulose (Lactulose Liq) 30 ml PO DAILY PRN PRN Reason: SEVERE CONSITIPATION Lansoprazole (Prevacid Solutab) 30 mg PO DAILY [facility] Last Admin: 04/22/18 08:54 Dose: 30 mg Levetiracetam (Keppra Liq) 500 mg NG/OG BID [facility] Last Admin: 04/22/18 08:57 Dose: 500 mg Senna/Docusate Sodium (Shania-Colace) 1 tab PO BID [facility] Last Admin: 04/22/18 08:54 Dose: 1 tab Sennosides (Senokot) 17.2 mg PO Q12H PRN PRN Reason: Moderate Constipation Sodium Chloride (Ns Flush) 2 ml IV.FLUSH PRN PRN PRN Reason: FLUSH AFTER USING IV ACCESS Sodium Chloride (Ns Flush) 2 ml IV.FLUSH BID [facility] Last Admin: 04/22/18 08:59 Dose: 2 ml Allergies Allergy/AdvReac Type Severity Reaction Status Date / Time No Known Allergies Allergy Verified 04/21/18 16:24 Home Medications Medication Instructions Recorded Confirmed Type albuterol sulfate 2.5 mg INHALATION Q6H PRN 04/21/18 04/21/18 History apixaban [Eliquis] 2.5 mg PO BID 04/21/18 04/21/18 History atorvastatin 40 mg PO DAILY 04/21/18 04/21/18 History diltiazem HCl 120 mg PO Q12H 04/21/18 04/21/18 History docusate sodium 100 mg PO DAILY 04/21/18 04/21/18 History hydroxyzine HCl 25 mg PO TID-QID PRN 04/21/18 04/21/18 History lansoprazole 30 mg PO DAILY 04/21/18 04/21/18 History tramadol 25 mg PO Q4H PRN 04/21/18 04/21/18 History Advance Directives Living Will: No Healthcare Surrogate: No Power of Ammunition Specialist: No Today's verbally stated goals: Patient is aphasic and unable to state goals. . Family/friends goals: To be determined. . Physical Exam Vital Signs: Vital Signs - 24 hr 04/21/18 13:55 04/21/18 13:56 04/21/18 13:57 Temperature 97.7 F Pulse Rate 85 60 68 Respiratory Rate 16 Blood Pressure 115/63 Pulse Oximetry 95 95 04/21/18 14:01 04/21/18 15:32 04/21/18 16:00 Temperature Pulse Rate 85 81 Respiratory Rate 16 18 Blood Pressure 127/78 121/69 Pulse Oximetry 97 97 96 04/21/18 17:00 04/21/18 19:56 04/21/18 20:17 Temperature Pulse Rate 78 78 81 Respiratory Rate 18 Blood Pressure 118/59 L 127/58 L Pulse Oximetry 94 L 95 04/21/18 21:00 04/22/18 00:00 04/22/18 04:00 Temperature 98.1 F 97.7 F 98 F Pulse Rate 89 78 82 Respiratory Rate 22 16 16 Blood Pressure 116/59 L 120/58 L 109/54 L Pulse Oximetry 100 100 98 04/22/18 07:00 04/22/18 08:00 Temperature 98.5 F Pulse Rate 98 H Respiratory Rate 26 H Blood Pressure 101/69 Pulse Oximetry 100 100 I&O: Intake & Output 04/20/18 04/21/18 04/22/18 04/23/18 06:59 06:59 06:59 06:59 Intake Total 1067 / 1067 167 / 167 Output Total 1550 / 1550 Balance -483 / -483 167 / 167 Weight 106 lb 0.677 oz Physical Exam: CONSTITUTIONAL/GENERAL: This is a thin, elderly female, lying in bed, somnolent with occasional moaning, grimacing and outbursts of "pain, help, ". TUBES/LINES/DRAINS: PIV, Mcgee SKIN: Mild jaundice, multiple ecchymosis scattered over the entire skin, erythema, skin breakdown on buttocks, multiple scabs and skin tears on upper arms and hands. Warm, dry. HEAD: Atraumatic. Normocephalic. EYES: Pupils equal and round and reactive. No scleral icterus. No injection or drainage. Fundi not examined. ENT: Nose without bleeding or purulent drainage. Oral mucosa dry. NECK: Trachea midline. Supple, nontender. No palpable thyroid enlargement or nodularity. CARDIOVASCULAR: Regular rate and rhythm without murmurs, gallops, or rubs. No JVD. Peripheral pulses symmetric. RESPIRATORY/CHEST: Symmetric, unlabored respirations. Clear, diminished to auscultation. Breath sounds equal bilaterally. No wheezes, rales, or rhonchi. GASTROINTESTINAL: Abdomen soft, nondistended. No hepato-splenomegaly, or palpable masses. No guarding. Bowel sounds present. GENITOURINARY: Without palpable bladder distension. Mcgee catheter in place. MUSCULOSKELETAL: Extremities without clubbing, cyanosis, or edema. No mottling or clubbing. LYMPHATICS: No palpable cervical or supraclavicular adenopathy. NEUROLOGICAL: Somnolent, not responding, dysphasic, left weakness, right hemiplegia. PSYCHIATRIC: Mild anxiety/agitation, occasional moaning. . Diagnostic Tests Laboratory: Laboratory Results - last 72 hr 04/21/18 04/21/18 04/21/18 13:57 14:00 14:00 WBC 10.1 RBC 2.98 L Hgb 9.5 L POC Hgb (Calc) Hct 27.6 L POC Hct MCV 92.5 MCH 31.8 MCHC 34.4 RDW 13.8 Plt Count 405 MPV 6.4 L Neut % (Auto) 78.1 H Lymph % (Auto) 13.0 [place] % (Auto) 7.1 Eos % (Auto) 0.9 Baso % (Auto) 0.9 Neut # (Auto) 7.9 H Lymph # (Auto) 1.3 [place] # (Auto) 0.7 Eos # (Auto) 0.1 Baso # (Auto) 0.1 WBC Differential . Differential Comment Auto diff final ESR PT 10.0 INR 1.0 APTT 27.5 POC Sodium POC Potassium POC Chloride POC BUN POC Creatinine POC Glucose 133 H Total Creatine Kinase Troponin I Triglycerides Cholesterol LDL Cholesterol, Calc HDL Cholesterol Cholesterol/HDL Ratio Vitamin B12 TSH Urine Color Urine Clarity Urine pH Ur Specific [place] Urine Protein Urine Glucose (UA) Urine Ketones Urine Occult Blood Urine Nitrate Urine Bilirubin Urine Urobilinogen Ur Leukocyte Esterase Urine RBC Urine WBC Urine Bacteria Micro UA Comment Urine Culture Comments Nasal Screen MRSA (PCR) Blood Type Antibody Screen 04/21/18 04/21/18 04/21/18 14:00 14:00 14:00 WBC RBC Hgb POC Hgb (Calc) 8.8 L Hct POC Hct 26.0 L MCV MCH MCHC RDW Plt Count MPV Neut % (Auto) Lymph % (Auto) [place] % (Auto) Eos % (Auto) Baso % (Auto) Neut # (Auto) Lymph # (Auto) [place] # (Auto) Eos # (Auto) Baso # (Auto) WBC Differential Differential Comment ESR PT INR APTT POC Sodium 135 L POC Potassium 4.0 POC Chloride 98 L POC BUN 40 H POC Creatinine 1.3 POC Glucose 106 Total Creatine Kinase 35 Troponin I 0.16 H Triglycerides Cholesterol LDL Cholesterol, Calc HDL Cholesterol Cholesterol/HDL Ratio Vitamin B12 TSH Urine Color Urine Clarity Urine pH Ur Specific [place] Urine Protein Urine Glucose (UA) Urine Ketones Urine Occult Blood Urine Nitrate Urine Bilirubin Urine Urobilinogen Ur Leukocyte Esterase Urine RBC Urine WBC Urine Bacteria Micro UA Comment Urine Culture Comments Nasal Screen MRSA (PCR) Blood Type A Positive Antibody Screen Negative 04/21/18 04/21/18 04/21/18 14:00 15:15 17:39 WBC RBC Hgb POC Hgb (Calc) Hct POC Hct MCV MCH MCHC RDW Plt Count MPV Neut % (Auto) Lymph % (Auto) [place] % (Auto) Eos % (Auto) Baso % (Auto) Neut # (Auto) Lymph # (Auto) [place] # (Auto) Eos # (Auto) Baso # (Auto) WBC Differential Differential Comment ESR 69 H PT INR APTT POC Sodium POC Potassium POC Chloride POC BUN POC Creatinine POC Glucose 98 Total Creatine Kinase Troponin I Triglycerides Cholesterol LDL Cholesterol, Calc HDL Cholesterol Cholesterol/HDL Ratio Vitamin B12 TSH Urine Color Yellow Urine Clarity Cloudy H Urine pH 7.0 Ur Specific [place] 1.015 Urine Protein Negative Urine Glucose (UA) Negative Urine Ketones Negative Urine Occult Blood Small H Urine Nitrate Negative Urine Bilirubin Negative Urine Urobilinogen 2.0 H Ur Leukocyte Esterase Large H Urine RBC 6 H Urine WBC Urine Bacteria Many H Micro UA Comment Cath-culture ind Urine Culture Comments Cath-cult indicated Nasal Screen MRSA (PCR) Blood Type Antibody Screen 04/21/18 04/21/18 04/21/18 20:12 21:30 22:03 WBC RBC Hgb POC Hgb (Calc) Hct POC Hct MCV MCH MCHC RDW Plt Count MPV Neut % (Auto) Lymph % (Auto) [place] % (Auto) Eos % (Auto) Baso % (Auto) Neut # (Auto) Lymph # (Auto) [place] # (Auto) Eos # (Auto) Baso # (Auto) WBC Differential Differential Comment ESR PT INR APTT POC Sodium POC Potassium POC Chloride POC BUN POC Creatinine POC Glucose 93 Total Creatine Kinase Troponin I 0.18 H Triglycerides 117 Cholesterol 63 L LDL Cholesterol, Calc 6 HDL Cholesterol 33.9 L Cholesterol/HDL Ratio 1.85 Vitamin B12 1885 H TSH 2.130 Urine Color Urine Clarity Urine pH Ur Specific [place] Urine Protein Urine Glucose (UA) Urine Ketones Urine Occult Blood Urine Nitrate Urine Bilirubin Urine Urobilinogen Ur Leukocyte Esterase Urine RBC Urine WBC Urine Bacteria Micro UA Comment Urine Culture Comments Nasal Screen MRSA (PCR) Mrsa detected Blood Type Antibody Screen 04/22/18 04:30 WBC RBC Hgb POC Hgb (Calc) Hct POC Hct MCV MCH MCHC RDW Plt Count MPV Neut % (Auto) Lymph % (Auto) [place] % (Auto) Eos % (Auto) Baso % (Auto) Neut # (Auto) Lymph # (Auto) [place] # (Auto) Eos # (Auto) Baso # (Auto) WBC Differential Differential Comment ESR PT INR APTT POC Sodium POC Potassium POC Chloride POC BUN POC Creatinine POC Glucose Total Creatine Kinase Troponin I 0.16 H Triglycerides 156 H Cholesterol 73 L LDL Cholesterol, Calc 8 HDL Cholesterol 34.2 L Cholesterol/HDL Ratio 2.13 Vitamin B12 TSH Urine Color Urine Clarity Urine pH Ur Specific [place] Urine Protein Urine Glucose (UA) Urine Ketones Urine Occult Blood Urine Nitrate Urine Bilirubin Urine Urobilinogen Ur Leukocyte Esterase Urine RBC Urine WBC Urine Bacteria Micro UA Comment Urine Culture Comments Nasal Screen MRSA (PCR) Blood Type Antibody Screen Result Diagrams: 04/24/18 05:04 04/24/18 05:04 Microbiology: Microbiology 04/21/18 15:15 Catheterized Urine Urine Culture - Preliminary gram negative rods Imaging: Chest X-Ray 04/21/18 13:56 CONCLUSION: Technically Limited exam grossly negative for acute process Head CT 04/21/18 13:56 CONCLUSION: 1. No acute intracranial abnormality is identified to explain the clinical symptoms. 2. Bilateral areas of encephalomalacia, as above, related to prior infarcts. 3. Chronic findings include generalized atrophy and moderate severity chronic white matter changes. These findings were telephoned to Dr. Yap via telephone on 04/21/2018 at 2:11 PM. Head CTA 04/21/18 13:56 CONCLUSION: No intracranial vascular abnormality is identified. These findings were telephoned to Dr. Orr on 04/21/2018 at 2:24 PM. Neck CTA 04/21/18 13:56 CONCLUSION: No evidence of carotid stenosis. . Patient/Family Conference Present at Family Conference: DaughterRae and her , were at bedside visiting. Patient's had recently left the hospital after staying up with his all night and was asleep at home. Reviewed the below listed items as well as palliative care purpose and focus, reviewing clinical findings, past medical, surgical, social, psychosocial history and exploring goals of care previously stated by the patient. As the patient's is not available, no medical decisions have been made this meeting. The daughter states that she is working with the patient's , her stepfather, in making decisions, however states that he would be the final decision maker. . Issues Discussed: * Palliative care role, purpose, approach * Additional medical, psychosocial, and spiritual history * Patients general health, functional status, and cognitive changes in the months leading up to the current hospitalization * Patient/family understanding of the current medical problems * Patient/family understanding of prognosis * Patients goals of care as best understood from advance directives and/or conversations and/or values * Current medical treatment options and benefits/burdens of those options * Likely scenarios comparing ongoing aggressive care with a transition to comfort measures only * Questions answered to the best of my ability * Palliative care contact information provided Assessment and Plan Pertinent Non-Medical Issues: Psychosocial: She was born in [place] and moved to [place] in 1977 with her second . She had 1 daughter, Rae, by her first . 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 She had previously liked bicycling and loved her 2 dogs. 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 Legal: No advanced directive paperwork completed. Ethical issues impacting care: None noted. . Important Contacts: Daughter: Rae Muniz : Keegan Mills , . Prognosis: Her prognosis is very poor. She has sustained multiple strokes of unknown etiology, and has a bedbound existence. 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 She currently has a PEG tube and is receiving tube feeding, which has significantly worsened her diarrhea from intermittent episodes to constant, chronic requiring shania-care every 30-60 minutes around-the -clock resulting in skin impairment and breakdown. In addition to her baseline right hemiplegia, left weakness, dysphasia, dysarthria she has now become somnolent and not interacting with staff or family. She is clearly declining and would be hospice appropriate consistent. If the decision-maker expresses aggressive goals, she is at significant risk for continued complications, readmissions and decline. . Code Status: Full Code Plan: PLAN: Legal decision maker: The patient is not capacitated at this time for decision-making and it is uncertain whether she will ever regain capacity. [place] statutes her , Keegan Mills would be the legal proxy decision maker. Goals: Aggressive at this time. CODE STATUS: FULL CODE SYMPTOMS: * Altered mental status: She was previously alert and interactive with the family, per the daughter. She is currently somnolent, not responding to command , intermittently agitated. Preliminary urine culture shows gram-negative rods and the patient is receiving ceftriaxone pending finalization of culture and sensitivity. * Anxiety: Patient is unable to verbalize her anxiety, but is seen to frequently reposition herself, thrash, grimace. She is currently undergoing neurological workup, however, may benefit from an anxiolytic once cleared by neurology. * Pain: Per the daughter, her primary source of pain has been her buttocks excoriation. Would recommend gentle and frequent shania-care to maintain cleanliness and comfort. May benefit from a wound consult. * Weakness: She has had multiple strokes and has sustained right hemiplegia, mild left weakness, dysphagia. PT, ST consults have been ordered. SUMMARY This is a 72-year-old female who has suffered multiple strokes since November of this year with compound disabilities. She is of bedbound status and is now somnolent and not responding. As a sequelae to previous bypass surgery, she has malabsorption and chronic diarrhea with impaired skin integrity. This has been exacerbated by the initiation of tube feeding in December of this year after a stroke rendered her dysphasic. Goals of care discussion remains in progress but at this time the patient remains in FULL CODE. She would be hospice appropriate if goals were consistent. Palliative care will continue to follow the patient during hospital course as condition evolves, to assist patient/decision-maker with understanding of their medical conditions, weighing benefits/burdens of treatment options, for clarification of goals of treatment. Additionally will assist with any symptoms of palliative concern. . Appreciation Thank you for the opportunity to participate in the care of Erin Diaz. Attestation Attestation: To help prompt me to consider important information that might be impacting today's encounter and assessment, information from prior notes written by myself or my colleagues may have been "brought forward" into today's note. My signature on this note, however, is an attestation that I personally performed the exam, history, and/or decision-making noted today, and, unless otherwise indicated, the interactions with patient, family, and staff as well as the review of records all occurred today. I also attest that the listed assessment and stated plan reflect my best clinical judgment today based on the combination of historical information, prior notes, and today's exam/ interactions. When time spent is documented, it refers only to time spent today by the signer, or if indicated, combined time spent today by collaborating physician/nurse practitioner. .
[2018-04-22 13:41] LABS: Baso # (Auto) 0.1 th/mm3 (0.0-0.2); Baso % (Auto) 0.5 % (0.0-2.0); Eos % (Auto) 0.3 % (0.0-4.0); Hematocrit 30.5 % (35.0-46.0); Hemoglobin 10.2 gm/dL (11.6-15.3); Lymph # (Auto) 1.5 th/mm3 (1.0-4.8); Lymph % (Auto) 12.5 % (9.0-44.0); Mean Corpuscular HGB Conc 33.4 % (32.0-36.0); Mean Corpuscular Hemoglobin 31.6 pg (27.0-34.0); Mean Corpuscular Volume 94.5 fL (80.0-100.0); Mean Platelet Volume 7.1 fL (7.0-11.0); Mono # (Auto) 0.5 th/mm3 (0.0-0.9); Mono % (Auto) 4.3 % (0.0-8.0); Neut # (Auto) 9.6 th/mm3 (1.8-7.7); Neut % (Auto) 82.4 % (16.0-70.0); Platelet Count 392 th/mm3 (150-450); Red Blood Count 3.22 mil/mm3 (4.00-5.30); Red Cell Distribution Width 14.3 % (11.6-17.2); White Blood Count 11.7 th/mm3 (4.0-11.0)
[2018-04-22 13:59] LABS: Calcium 7.8 mg/dL (8.5-10.1); Potassium 3.6 meq/L (3.5-5.1)
--- NOTE | 2018-04-22 15:57 | P.DIET ---
Nutritional Evaluation Type of nutrition evaluation: initial Nutrition consult regarding: Tube Feeding Subjective Subjective Comments: Pt has a PEG and uses Jevity 1.5 at home. Objective - Diagnosis Stroke Alert, Elev Troponin - Objective % IBW: 106 (IBW = 100#) Energy Needs - Lower Range (kCal/kg): 28 Energy Needs - Upper Range (kCal/kg): 32 Lower Limit kCal/kg (kCals): 1,347 Upper Limit kCal/kg (kCals): 1,539 Lower Limit Protein Factor (Grams per Kg): 1.0 Upper Limit Protein Factor (Grams per Kg): 1.5 Lower Protein Needs (Protein): 48 Upper Protein Needs (Protein): 72 Dietitian Reviewed in Medical Record: Curent medications, Intake & Output, Labs , Medical history, Tube feeding Diet Order: NPO Assessment Assessment: Pt is at high nutrition risk 2' to her dependence on PEG feeding to meet nutritional needs. Current order is for Jevity 1.5 @ 60 mls/hr goal rate. Recommend goal rate of 45 mls/hr to provide 1620 kcals, 69 gms protein and 821 mls of free water. Pt will need an additional 200 mls water flush q 6 hours to meet fluid needs. Recommendations: Jevity 1.5 @ 45 mls/hr goal Dietitian to Monitor: Lab values, Intake & Output, Tube feeding tolerance, Weight change, Medical course
--- NOTE | 2018-04-22 22:24 | MG ---
cc: Tai Orr MD ELECTROENCEPHALOGRAM RECORD NUMBER: [id number] DESCRIPTION: A 2-4 Hz posterior rhythm, 20-40 microvolts. Tiny phase-reversal F7, epoch 23. Spindles noted suggestive of stage II sleep. Limited driving with photic stimulation. Rhythmic delta activity occurring epoch 106. No significant driving photic stimulation. Single lead EKG showing sinus rhythm. INTERPRETATION: Mild to moderate encephalopathy. Clinical correlation. MD HARRIET Bo/shayy/dereck , 09:02 PM , 09:06 PM
[2018-04-23 04:20] LABS: Baso # (Auto) 0.1 th/mm3 (0.0-0.2); Baso % (Auto) 0.5 % (0.0-2.0); Eos % (Auto) 0.3 % (0.0-4.0); Hematocrit 30.6 % (35.0-46.0); Hemoglobin 9.9 gm/dL (11.6-15.3); Lymph # (Auto) 1.2 th/mm3 (1.0-4.8); Lymph % (Auto) 7.6 % (9.0-44.0); Mean Corpuscular HGB Conc 32.3 % (32.0-36.0); Mean Corpuscular Hemoglobin 30.8 pg (27.0-34.0); Mean Corpuscular Volume 95.3 fL (80.0-100.0); Mean Platelet Volume 7.3 fL (7.0-11.0); Mono # (Auto) 0.7 th/mm3 (0.0-0.9); Mono % (Auto) 4.4 % (0.0-8.0); Neut # (Auto) 14.3 th/mm3 (1.8-7.7); Neut % (Auto) 87.2 % (16.0-70.0); Platelet Count 377 th/mm3 (150-450); Red Blood Count 3.21 mil/mm3 (4.00-5.30); Red Cell Distribution Width 14.3 % (11.6-17.2); White Blood Count 16.4 th/mm3 (4.0-11.0)
[2018-04-23 04:25] LABS: INR 1.1 Ratio; Prothrombin Time 10.7 sec (9.8-11.6)
[2018-04-23 04:37] LABS: Albumin 2.1 g/dL (3.4-5.0); Anion Gap 13 meq/L (5-15); Aspartate Aminotransferase 25 U/L (15-37); Blood Urea Nitrogen 33 mg/dL (7-18); Calcium 7.8 mg/dL (8.5-10.1); Carbon Dioxide 19.8 meq/L (21.0-32.0); Chloride 112 meq/L (98-107); Glomerular Filtration Rate 49 mL/min (>89); Glucose,Random 133 mg/dL (74-106); Magnesium 1.9 mg/dL (1.5-2.5); Potassium 3.4 meq/L (3.5-5.1); Sodium 145 meq/L (136-145)
[2018-04-23 04:38] LABS: Alanine Aminotransferase 17 U/L (10-53); Phosphorus 2.9 mg/dL (2.5-4.9)
[2018-04-23 04:40] LABS: Alkaline Phosphatase 148 U/L (45-117); Total Protein 6.5 g/dL (6.4-8.2)
[2018-04-23] MEDS: Insulin NovoLOG Aspart Correctional Sugar Inj SQ SCH ×3 (08:16→17:48)
[2018-04-23] MEDS: dilTIAZem CD 240 MG Capsule PO SCH (08:47)
[2018-04-23] MEDS: Senna/Docusate Sodium 8.6/50 MG Tablet PO SCH ×2 (08:47→20:34)
--- NOTE | 2018-04-23 09:32 | P.PNNEU ---
Subjective Subjective Comments: No acute events Active Medications: Active Medications Acetaminophen (Tylenol) 650 mg PO Q6H PRN PRN Reason: FEVER >101F, PAIN Al Hydroxide/Mg Hydroxide (Milk Of Magnesia Liq) 30 ml PO Q12H PRN PRN Reason: Mild Constipation Albuterol (*Albuterol Neb Periprocedure Only) 2.5 mg NEB Q6HR NEB PRN PRN Reason: Shortness Of Breath Apixaban (Eliquis) 5 mg PO BID [facility] Last Admin: 04/23/18 08:47 Dose: 5 mg Atorvastatin Calcium (Lipitor) 40 mg PO DAILY [facility] Last Admin: 04/23/18 08:47 Dose: 40 mg Bisacodyl (Dulcolax Supp) 10 mg RECTAL DAILY PRN PRN Reason: SEVERE CONSITIPATION Dextrose (D50w Vial) 50 ml IV.PUSH UNSCH PRN PRN Reason: PER HYPOGLYCEMIA PROTOCOL Diltiazem HCl (Cardizem Cd 24hr) 240 mg PO DAILY [facility] Last Admin: 04/23/18 08:47 Dose: 240 mg Glucagon (Glucagon Inj) 1 mg OTHER UNSCH PRN PRN Reason: for Hypoglycemia Protocol Ceftriaxone Sodium 1,000 mg/ (Sodium Chloride) 100 mls @ 200 mls/hr IV.SIG Q24H [facility] Last Admin: 04/23/18 08:42 Dose: 200 mls/hr Insulin Aspart (Novolog Insulin Correctional Sugar Inj) 0 unit SQ ACHS [facility]; Protocol Last Admin: 04/23/18 08:16 Dose: Not Given Lactulose (Lactulose Liq) 30 ml PO DAILY PRN PRN Reason: SEVERE CONSITIPATION Lansoprazole (Prevacid Solutab) 30 mg PO DAILY [facility] Last Admin: 04/23/18 08:47 Dose: 30 mg Levetiracetam (Keppra Liq) 500 mg NG/OG BID [facility] Last Admin: 04/23/18 08:47 Dose: 500 mg Lorazepam (Ativan Inj) 1 mg IV.PUSH NOW ONE Stop: 04/23/18 09:31 Senna/Docusate Sodium (Shania-Colace) 1 tab PO BID [facility] Last Admin: 04/23/18 08:47 Dose: Not Given Sennosides (Senokot) 17.2 mg PO Q12H PRN PRN Reason: Moderate Constipation Sodium Chloride (Ns Flush) 2 ml IV.FLUSH PRN PRN PRN Reason: FLUSH AFTER USING IV ACCESS Sodium Chloride (Ns Flush) 2 ml IV.FLUSH BID [facility] Last Admin: 04/23/18 08:47 Dose: 2 ml Allergies/Adverse Reactions: Allergies Allergy/AdvReac Type Severity Reaction Status Date / Time No Known Allergies Allergy Verified 04/21/18 16:24 Review of Systems All other systems reviewed negative except as stated in HPI Physical Exam Vital signs: Vital Signs 04/22/18 12:00 04/22/18 16:00 04/22/18 19:00 Temperature 98.1 F 98.1 F Pulse Rate 85 76 88 Respiratory Rate 10 L 12 Blood Pressure 110/62 106/61 Pulse Oximetry 100 94 L 04/22/18 20:00 04/23/18 00:00 04/23/18 04:00 Temperature 99.3 F 98.8 F 98.3 F Pulse Rate 86 86 80 Respiratory Rate 24 13 14 Blood Pressure 117/71 110/59 L 125/62 Pulse Oximetry 100 100 100 04/23/18 07:55 04/23/18 08:00 Temperature 98.4 F Pulse Rate 90 Respiratory Rate 14 Blood Pressure 106/52 L Pulse Oximetry 100 100 Intake & Output 04/22/18 04/23/18 04/23/18 18:59 06:59 18:59 Intake Total 479 / 479 664 / 664 Output Total 650 / 650 725 / 725 Balance -171 / -171 -61 / -61 Weight 46 kg Intake: IV 167 / 167 Ofirmev Inj 670 mg In 67 ml @ 67 / 67 268 mls/hr IV.SIG Q6H PRN Rx#: [id number] Rocephin Inj 1,000 MG In NS Inj 100 / 100 100 ML @ 200 mls/hr IV.SIG Q24H JORDIN Rx#:[id number] Oral 120 / 120 Tube Feeding 192 / 192 604 / 604 Tube Irrigant 60 / 60 Output: Urine Amount (Catheter) 650 / 650 725 / 725 Indwelling Urethral Catheter 650 / 650 725 / 725 Other: Date of Last Bowel Movement 04/22/18 04/23/18 04/23/18 # Bowel Movements 3 4 # Incontinent Bowel Movements 3 4 Narrative: GENERAL: Thin female lying in bed SKIN: Warm and dry. No rash. Scattered ecchymoses noted. HEAD: Atraumatic. Normocephalic. EYES: Pupils equal and round. No scleral icterus. No injection or drainage. ENT: No nasal bleeding or discharge. Mucous membranes are dry NECK: Trachea midline. CARDIOVASCULAR: Regular rate and rhythm. No murmurs. RESPIRATORY: No accessory muscle use. Clear to auscultation, no rales or rhonchi. GASTROINTESTINAL: Abdomen soft, non-tender, nondistended. PEG tube in place clean and dry skin. MUSCULOSKELETAL: Extremities without clubbing, cyanosis, or edema. No obvious deformities. NEUROLOGICAL: Awake and alert. Nonverbal my right gaze preference no involuntary movements able to get her eyes to cross midline not following mild right gaze preference, not following commands. 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 PSYCHIATRIC: More calm no repetitive speech this a.m. - Constitutional no acute distress - Routine HEENT Exam Head: Present: normocephalic Eye: Present: EOMI - Urinary Catheter Management Indwelling Urethral Catheter Cath placed during this visit: no Objective Laboratory Results - last 24 hr 04/21/18 04/22/18 04/22/18 15:15 04:30 11:58 WBC RBC Hgb Hct MCV MCH MCHC RDW Plt Count MPV Neut % (Auto) Lymph % (Auto) Lake % (Auto) Eos % (Auto) Baso % (Auto) Neut # (Auto) Lymph # (Auto) Lake # (Auto) Eos # (Auto) Baso # (Auto) WBC Differential Differential Comment PT INR Sodium Potassium Chloride Carbon Dioxide Anion Gap BUN Creatinine Estimated GFR POC Glucose 99 Random Glucose Hemoglobin A1c 5.0 Calcium Phosphorus Magnesium Total Bilirubin AST ALT Alkaline Phosphatase Total Protein Albumin Urine Color Yellow Urine Clarity Cloudy H Urine pH 7.0 Ur Specific [place] 1.015 Urine Protein Negative Urine Glucose (UA) Negative Urine Ketones Negative Urine Occult Blood Small H Urine Nitrate Negative Urine Bilirubin Negative Urine Urobilinogen 2.0 H Ur Leukocyte Esterase Large H Urine RBC 6 H Urine WBC Urine Bacteria Many H Micro UA Comment Cath-culture ind Urine Culture Comments Cath-cult indicated 04/22/18 04/22/18 04/22/18 12:16 12:16 16:17 WBC 11.7 H RBC 3.22 L Hgb 10.2 L Hct 30.5 L MCV 94.5 MCH 31.6 MCHC 33.4 RDW 14.3 Plt Count 392 MPV 7.1 Neut % (Auto) 82.4 H Lymph % (Auto) 12.5 Lake % (Auto) 4.3 Eos % (Auto) 0.3 Baso % (Auto) 0.5 Neut # (Auto) 9.6 H Lymph # (Auto) 1.5 Lake # (Auto) 0.5 Eos # (Auto) 0.0 Baso # (Auto) 0.1 WBC Differential . Differential Comment Auto diff final PT INR Sodium 141 Potassium 3.6 Chloride 106 Carbon Dioxide 25.0 Anion Gap 10 BUN 41 H Creatinine 1.13 H Estimated GFR 47 L POC Glucose 81 Random Glucose 72 L Hemoglobin A1c Calcium 7.8 L Phosphorus Magnesium Total Bilirubin AST ALT Alkaline Phosphatase Total Protein Albumin Urine Color Urine Clarity Urine pH Ur Specific [place] Urine Protein Urine Glucose (UA) Urine Ketones Urine Occult Blood Urine Nitrate Urine Bilirubin Urine Urobilinogen Ur Leukocyte Esterase Urine RBC Urine WBC Urine Bacteria Micro UA Comment Urine Culture Comments 04/22/18 04/23/18 04/23/18 20:30 03:39 03:39 WBC 16.4 H RBC 3.21 L Hgb 9.9 L Hct 30.6 L MCV 95.3 MCH 30.8 MCHC 32.3 RDW 14.3 Plt Count 377 MPV 7.3 Neut % (Auto) 87.2 H Lymph % (Auto) 7.6 L Lake % (Auto) 4.4 Eos % (Auto) 0.3 Baso % (Auto) 0.5 Neut # (Auto) 14.3 H Lymph # (Auto) 1.2 Lake # (Auto) 0.7 Eos # (Auto) 0.0 Baso # (Auto) 0.1 WBC Differential . Differential Comment Auto diff final PT 10.7 INR 1.1 Sodium Potassium Chloride Carbon Dioxide Anion Gap BUN Creatinine Estimated GFR POC Glucose 103 Random Glucose Hemoglobin A1c Calcium Phosphorus Magnesium Total Bilirubin AST ALT Alkaline Phosphatase Total Protein Albumin Urine Color Urine Clarity Urine pH Ur Specific [place] Urine Protein Urine Glucose (UA) Urine Ketones Urine Occult Blood Urine Nitrate Urine Bilirubin Urine Urobilinogen Ur Leukocyte Esterase Urine RBC Urine WBC Urine Bacteria Micro UA Comment Urine Culture Comments 04/23/18 03:39 WBC RBC Hgb Hct MCV MCH MCHC RDW Plt Count MPV Neut % (Auto) Lymph % (Auto) Lake % (Auto) Eos % (Auto) Baso % (Auto) Neut # (Auto) Lymph # (Auto) Lake # (Auto) Eos # (Auto) Baso # (Auto) WBC Differential Differential Comment PT INR Sodium 145 Potassium 3.4 L Chloride 112 H Carbon Dioxide 19.8 L Anion Gap 13 BUN 33 H Creatinine 1.10 H Estimated GFR 49 L POC Glucose Random Glucose 133 H Hemoglobin A1c Calcium 7.8 L Phosphorus 2.9 Magnesium 1.9 Total Bilirubin 0.3 AST 25 ALT 17 Alkaline Phosphatase 148 H Total Protein 6.5 Albumin 2.1 L Urine Color Urine Clarity Urine pH Ur Specific [place] Urine Protein Urine Glucose (UA) Urine Ketones Urine Occult Blood Urine Nitrate Urine Bilirubin Urine Urobilinogen Ur Leukocyte Esterase Urine RBC Urine WBC Urine Bacteria Micro UA Comment Urine Culture Comments Microbiology 04/21/18 15:15 Urine Culture - Final Catheterized Urine Escherichia coli ESBL positive Review/Management - Diagnosis (1) Encephalopathy acute Code(s): G93.40 - Encephalopathy, unspecified Status: Acute Current Visit: Yes (2) Chronic ischemic left MCA stroke Code(s): I69.30 - Unspecified sequelae of cerebral infarction Status: Acute Current Visit: Yes (3) Chronic ischemic right MCA stroke Code(s): I69.30 - Unspecified sequelae of cerebral infarction Status: Acute Current Visit: Yes (4) Chronic left arterial ischemic stroke, MCA (middle cerebral artery) Code(s): I69.30 - Unspecified sequelae of cerebral infarction Status: Acute Current Visit: Yes - Review/Management Plan: Etiology; possible new infarct, versus complex partial seizure, versus metabolic CT brain carotids no significant vaso-occlusive disease Possible vascular dementia Recommendations MRI brain; pending. Discussed with RN to obtain today is been over 2 days Appreciate palliative care evaluation EEG; no active seizure Hydration; oral care Continue Eliquis for now until imaging completed. If new infarct seen we will change her anticoagulant. May need low dose Seroquel/Risperdal await completion of above studies first Follow exam
--- NOTE | 2018-04-23 09:48 | P.PNFP ---
Subjective Interval history: Patient resting comfortably in room. Seems much less agitated than yesterday and nursing also expressed patient seems more comfortable. Spontaneously moving left side. Nursing will reach out to neurology to confirm need for MRI. Palliative care still to discuss plans with patient's . Patient transferred off the ICU floor. Results - Labs Result diagrams: 04/23/18 03:39 04/23/18 03:39 Abnormal lab results 04/21/18 04/22/18 04/22/18 Range/Units 15:15 12:16 12:16 WBC 11.7 H (4.0-11.0) th/mm3 RBC 3.22 L (4.00-5.30) mil/mm3 Hgb 10.2 L (11.6-15.3) gm/dL Hct 30.5 L (35.0-46.0) % Neut % (Auto) 82.4 H (16.0-70.0) % Lymph % (Auto) (9.0-44.0) % Neut # (Auto) 9.6 H (1.8-7.7) th/mm3 Potassium (3.5-5.1) meq/L Chloride (98-107) meq/L Carbon Dioxide (21.0-32.0) meq/L BUN 41 H (7-18) mg/dL Creatinine 1.13 H (0.50-1.00) mg/dL Estimated GFR 47 L (>89) mL/min Random Glucose 72 L (74-106) mg/dL Calcium 7.8 L (8.5-10.1) mg/dL Alkaline Phosphatase (45-117) U/L Albumin (3.4-5.0) g/dL Urine Clarity Cloudy H (Clear) Urine Occult Blood Small H (Negative) Urine Urobilinogen 2.0 H (Less than 2) mg/dL Ur Leukocyte Esterase Large H (Negative) Urine RBC 6 H (0-3) /hpf Urine Bacteria Many H (None) /hpf 04/23/18 04/23/18 Range/Units 03:39 03:39 WBC 16.4 H (4.0-11.0) th/mm3 RBC 3.21 L (4.00-5.30) mil/mm3 Hgb 9.9 L (11.6-15.3) gm/dL Hct 30.6 L (35.0-46.0) % Neut % (Auto) 87.2 H (16.0-70.0) % Lymph % (Auto) 7.6 L (9.0-44.0) % Neut # (Auto) 14.3 H (1.8-7.7) th/mm3 Potassium 3.4 L (3.5-5.1) meq/L Chloride 112 H (98-107) meq/L Carbon Dioxide 19.8 L (21.0-32.0) meq/L BUN 33 H (7-18) mg/dL Creatinine 1.10 H (0.50-1.00) mg/dL Estimated GFR 49 L (>89) mL/min Random Glucose 133 H (74-106) mg/dL Calcium 7.8 L (8.5-10.1) mg/dL Alkaline Phosphatase 148 H (45-117) U/L Albumin 2.1 L (3.4-5.0) g/dL Urine Clarity (Clear) Urine Occult Blood (Negative) Urine Urobilinogen (Less than 2) mg/dL Ur Leukocyte Esterase (Negative) Urine RBC (0-3) /hpf Urine Bacteria (None) /hpf Short CBC 04/22/18 04/23/18 Range/Units 12:16 03:39 WBC 11.7 H 16.4 H (4.0-11.0) th/mm3 Hgb 10.2 L 9.9 L (11.6-15.3) gm/dL Hct 30.5 L 30.6 L (35.0-46.0) % Plt Count 392 377 (150-450) th/mm3 [facility] 04/22/18 04/23/18 12:16 03:39 Sodium 141 145 Potassium 3.6 3.4 L Chloride 106 112 H Carbon Dioxide 25.0 19.8 L BUN 41 H 33 H Creatinine 1.13 H 1.10 H Calcium 7.8 L 7.8 L Liver Function 04/23/18 Range/Units 03:39 Total Bilirubin 0.3 (0.2-1.0) mg/dL AST 25 (15-37) U/L ALT 17 (10-53) U/L Alkaline Phosphatase 148 H (45-117) U/L Albumin 2.1 L (3.4-5.0) g/dL Urine 04/21/18 Range/Units 15:15 Urine Color Yellow (Yellw/Straw) Urine Clarity Cloudy H (Clear) Urine pH 7.0 (5.0-8.5) Ur Specific [place] 1.015 (1.002-1.035) Urine Protein Negative (Neg-Trace) mg/dL Urine Glucose (UA) Negative (Negative) mg/dL Physical Exam Vital signs: Vital Signs 04/22/18 12:00 04/22/18 16:00 04/22/18 19:00 Temperature 98.1 F 98.1 F Pulse Rate 85 76 88 Respiratory Rate 10 L 12 Blood Pressure 110/62 106/61 Pulse Oximetry 100 94 L 04/22/18 20:00 04/23/18 00:00 04/23/18 04:00 Temperature 99.3 F 98.8 F 98.3 F Pulse Rate 86 86 80 Respiratory Rate 24 13 14 Blood Pressure 117/71 110/59 L 125/62 Pulse Oximetry 100 100 100 04/23/18 07:55 04/23/18 08:00 Temperature 98.4 F Pulse Rate 90 Respiratory Rate 14 Blood Pressure 106/52 L Pulse Oximetry 100 100 Intake & Output 04/22/18 04/23/18 04/23/18 18:59 06:59 18:59 Intake Total 479 / 479 664 / 664 Output Total 650 / 650 725 / 725 Balance -171 / -171 -61 / -61 Weight 46 kg Intake: IV 167 / 167 Ofirmev Inj 670 mg In 67 ml @ 67 / 67 268 mls/hr IV.SIG Q6H PRN Rx#: [id number] Rocephin Inj 1,000 MG In NS Inj 100 / 100 100 ML @ 200 mls/hr IV.SIG Q24H JORDIN Rx#:[id number] Oral 120 / 120 Tube Feeding 192 / 192 604 / 604 Tube Irrigant 60 / 60 Output: Urine Amount (Catheter) 650 / 650 725 / 725 Indwelling Urethral Catheter 650 / 650 725 / 725 Other: Date of Last Bowel Movement 04/22/18 04/23/18 04/23/18 # Bowel Movements 3 4 # Incontinent Bowel Movements 3 4 Narrative: GENERAL: Thin female lying in bed SKIN: Warm and dry. No rash. Scattered ecchymoses noted. HEAD: Atraumatic. Normocephalic. EYES: Pupils equal and round. No scleral icterus. No injection or drainage. ENT: No nasal bleeding or discharge. Mucous membranes are dry NECK: Trachea midline. CARDIOVASCULAR: Regular rate and rhythm. No murmurs. RESPIRATORY: No accessory muscle use. Clear to auscultation, no rales or rhonchi. GASTROINTESTINAL: Abdomen soft, non-tender, nondistended. PEG tube in place clean and dry skin. MUSCULOSKELETAL: Extremities without clubbing, cyanosis, or edema. No obvious deformities. NEUROLOGICAL: Awake and alert. Nonverbal my right gaze preference no involuntary movements able to get her eyes to cross midline not following mild right gaze preference, not following commands. 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 PSYCHIATRIC: More calm no repetitive speech this a.m. - Urinary Catheter Management Indwelling Urethral Catheter Cath placed during this visit: no Assessment and Plan - Assessment (1) Acute ischemic stroke Code(s): I63.9 - Cerebral infarction, unspecified Status: Acute Plan: Unclear etiology at this time. Patient possibly with new infarct vs other neurologic etiology CT head did not have acute findings to suggest bleed or infection Patient was less responsive yesterday, so possibly improving. She is more alert today and appears to have delirium, but baseline is not entirely clear. Awaiting MRI, echo, EEG results Neurology following: recommending continued Eliquis. Pending imaging and further workup may change medications. IV Celebrex started 04/21, switching to Keppra today, will follow recommendations. PT/OT evaluation Speech: nothing by mouth. Will re-initiate tube feeds today Continue to monitor clinically Palliative care consult per neuro Continue marino for now Urinalysis concerning for UTI, Rocephin initiated 04/22, Culture E coli ESB, antibiotics switched to Bactrim Hospital Course: Patient had altered mental status and was unresponsive at 12:30 pm 04/21. Difficult to assess speech and function and neuro exam with baseline deficits. DDX stroke, UTI, sepsis, hypoglycemia, infection. Troponin 0.16 on admission. Glucose 133. CBC no elevated WBC. Hgb 9.5. Given one aspirin in ED. 04/21 CT head:No acute intracranial abnormality is identified to explain the clinical symptoms, Bilateral areas of encephalomalacia, as above, related to prior infarcts, Chronic findings include generalized atrophy and moderate severity chronic white matter changes. 04/21 chest x-ray: Technically Limited exam grossly negative for acute process Head CTA No intracranial vascular abnormality is identified. Neck CTA no evidence of carotid stenosis. -Admitted to ICU -Neurology consult: -MRI brain -EEG -Eliquis -PT OT eval and speech therapy -IV celebrex --> Keppra -cardiac 2D echo -EKG: no evidence of ischemic changes, low voltage. Serial EKGs ordered and telemetry showing no changes -Troponin 0.16, 0.18, 0.16 -UA large leukoesterase many bacteria negative nitrate. -UCX -PT 10, INR 1 APTT 2.5 -Monitor vitals signs per ischemic stroke protocol and then q4 hrs -lipid profile wnl, TSH wnl, B12 elevated, A1c 5.0 (2) Urinary tract infection Code(s): N39.0 - Urinary tract infection, site not specified Status: Acute Plan: Noted to have abnormal UA Urine culture E coli ESB Rocephin 1g daily (04/22-04/23) switched to Bactrim one tablet BID for 3 days (3) Nutrition, metabolism, and development symptoms Code(s): R63.8 - Other symptoms and signs concerning food and fluid intake Status: Acute Plan: Diet: 45 mL/hr Jevity with 200 mL water q 6 hrs DVT: SCD and home eliquis Electrolytes: replete as needed - Assessment and Plan 72 year old female PMH multiple previous strokes, right-sided weakness and contractures, left-sided weakness, kidney stones presents with altered mental status. Not tPA candidate and on eliquis at home. 04/21 CT head:No acute intracranial abnormality is identified to explain the clinical symptoms, Bilateral areas of encephalomalacia, as above, related to prior infarcts, Chronic findings include generalized atrophy and moderate severity chronic white matter changes. Chest x-ray limited but negative for acute processes. Head CTA No intracranial vascular abnormality is identified. Neck CTA no evidence of carotid stenosis. Neurology consulted and ordered MRI, EEG, home Eliquis, IV celebrex then switched to Keppra. Palliative care consulted. Patient started on Jevity 45 mL/hr feeds. 04/23 UCX grew Ecoli ESB switched from rocephin IV to bactrim one tablet BID for 3 days. Progress Note: Quality - Stroke Contraindication Not Initiating IV-Tpa: Contraindicated Onset of Symptoms Date: 04/21/18 Onset of Symptoms Time: 12:30 Contraindication Antithromb by Day Two: Contraindicated
--- NOTE | 2018-04-23 10:17 | MR ---
EXAM DATE: 04/23/2018 10:10 AM EDT AGE/SEX: 72 years / Female INDICATIONS: Altered mental status. CVA. CLINICAL DATA: This is the patient's subsequent encounter. Patient reports that signs and symptoms h ave been present for 3 days and indicates a pain score of Nonresponsive. MEDICAL/SURGICAL HISTORY: Cerebrovascular disease. Renal insufficiency, chronic. . Intestinal bypass. COMPARISON: POI, MR BRAIN W/O CONTRAST, 12/09/2016. . TECHNIQUE: Multiplanar, multisequence examination of the brain was performed without contrast. FINDINGS: Cerebrum: The ventricles are normal for age. There is diffuse bilateral cortical atrophy. No evidenc e of midline shift, mass lesion, hemorrhage. There is evidence indicating a new acute area of cerebra l infarction involving the right temporal posterior parietal lobe. There also appears to be a subacut e infarct involving the left posterior parietal lobe.. No extraaxial fluid collections are seen. Th e pituitary gland and suprasellar cistern are normal in configuration. White Matter: There continues to be chronic white matter changes throughout the white matter tracts bilaterally. There is edema associated with the bilateral posterior parietal infarct. Posterior Fossa: The cerebellum and brainstem are intact. The 4th ventricle is midline. The cerebel lopontine angle is unremarkable. The cerebellar tonsils are normal in position. Diffusion Imaging: The diffusion images are grossly abnormal. There is a geographic area of increase d signal involving the left temporal posterior parietal lobe consistent with an acute infarction. The re is some mild increased signal in the left posterior parietal lobe consistent with a subacute infar ction. These findings are new compared to the prior examination. Extracranial: The visualized portions of the orbits and paranasal sinuses are unremarkable. CONCLUSION: 1. There is a new area of acute infarction involving the right temporal posterior parietal lobe. 2. There is a new area of subacute infarction involving the left posterior parietal lobe. 3. No definite acute intracranial hemorrhage is seen. 4. Diffuse bilateral cortical atrophy and chronic white matter changes are again demonstrated. Electronically signed by: Sriram Perry MD 04/23/2018 10:16 AM EDT
--- NOTE | 2018-04-23 10:33 | CT ---
EXAM DATE: 04/23/2018 10:25 AM EDT AGE/SEX: 72 years / Female INDICATIONS: Follow up stroke. CLINICAL DATA: This is the patient's initial encounter. Patient reports that signs and symptoms have been present for 2 days and indicates a pain score of Nonresponsive. MEDICAL/SURGICAL HISTORY: Renal disease. CVA. None. RADIATION DOSE: 36.08 CTDI (mGy) COMPARISON: [facility] [place], 04/23/2018. [facility] [place]AST, 04/21/2018. . TECHNIQUE: CT of the head without contrast. Using automated exposure control and adjustment of the mA and/or kV according to patient size, radiation dose was kept as low as reasonably achievable to ob tain optimal diagnostic quality images. DICOM format image data is available electronically for revi ew and comparison. FINDINGS: Cerebrum: There is moderate generalized cerebral atrophy. Ventricles are normal given the degree of atrophy. There is moderate periventricular white matter low attenuation. Bilateral frontoparietal areas of partially cystic encephalomalacia remain present. There is cytotoxic edema in the right temp oroparietal region corresponding with the area of restricted diffusion identified on recent CT. No ac tejas blood products are identified. No midline shift or herniation is seen. Posterior Fossa: The cerebellum and brainstem demonstrate no acute abnormality. The 4th ventricle is midline. The cerebellopontine angle is within normal limits. Extracranial: The visualized sinuses are clear. Skull: The calvaria is intact. No skull fracture. CONCLUSION: 1. There is cytotoxic edema within the right temporoparietal region corresponding with the area of r estricted diffusion documented on today's MRI. No acute blood products are present. 2. Stable chronic changes include bilateral areas of encephalomalacia and generalized atrophy with c hronic periventricular white matter change. . Electronically signed by: Ru Gordon MD 04/23/2018 10:32 AM EDT
--- NOTE | 2018-04-23 16:43 | P.PNPAL ---
Reason for Visit Reason for visit: a. To assist with evaluation and management of symptoms including: Altered mental status, weakness, pain b. To assist medical decision maker(s) with: better understanding of current medical conditions; weighing benefits/burdens of medical treatment options; making medical treatment decisions. Subjective Subjective/Interval History: Patient seen today to follow-up on symptom management of altered mental status, anxiety, weakness, pain and assist in goals of medical treatment. Patient is seen today status post MRI and CT of the head. She required Ativan to prevent agitation during imaging studies and is currently sleeping comfortably. Her daughter is at bedside and states that last night she continued to yell out frequently saying "pain, ". MRI findings show a new area of acute infarction involving the right temporal posterior parietal lobe and a new area of subacute infarction involving the left posterior parietal lobe. No definite acute intracranial hemorrhage is seen. Diffuse bilateral cortical atrophy and chronic white matter changes are again demonstrated. CT of the head without contrast shows cytotoxic edema within the right temporoparietal region corresponding with the area of restricted diffusion documented on today's MRI. No acute blood products are present. Stable chronic changes include bilateral areas of encephalomalacia and generalized atrophy with chronic periventricular white matter change. She is seen to have spontaneous movement of her left lower extremity but is not responding to command, opening her eyes, tracking, focusing or interacting. She is seen to push her right lower extremity to the side of the bed with her left lower extremity. She has right hemiplegia and mild Left weakness secondary to prior strokes. Urinalysis returned ESBL E. coli. Antibiotic has been changed to Bactrim per sensitivity. After treatment with Ativan, she is not exhibiting any signs of anxiety, however is quite somnolent. She is not seen to grimace or frown with movement but is unable to make her needs known or qualify/quantify her anxiety or pain. . Family/Friend Interactions: Her daughter is at bedside and states that she has provided the with palliative care contact number and the request for call back, however states he is too distraught to communicate. She states he has gone home to take a nap as he stayed late into the evening with the patient due to her agitation and anxiety. Discussed new imaging findings which do reveal an acute infarction, suspicious for another stroke. Daughter questioned the possible etiology but at this time, no etiology has been identified for her recurrent strokes. Reviewed questions regarding her previous bariatric surgery, discussed possible complications arising from that surgery, to include fatigue, malnutrition, weakness, kidney stones, liver compromise and renal dysfunction. The daughter confirms that the patient does have many of those symptoms. In lieu of being able to speak with the , she states that at this time he stated he still wishes full aggressive therapy. Patient remains a FULL CODE until contact can be established with for further discussion. Palliative care will continue to main contact with the family for support, information and goals of medical treatment. . Objective Vital Signs: Vital Signs 04/22/18 19:00 04/22/18 20:00 04/23/18 00:00 Temperature 99.3 F 98.8 F Pulse Rate 88 86 86 Respiratory Rate 24 13 Blood Pressure 117/71 110/59 L Pulse Oximetry 100 100 04/23/18 04:00 04/23/18 07:55 04/23/18 08:00 Temperature 98.3 F 98.4 F Pulse Rate 80 90 Respiratory Rate 14 14 Blood Pressure 125/62 106/52 L Pulse Oximetry 100 100 100 04/23/18 12:00 Temperature 98.2 F Pulse Rate 97 H Respiratory Rate 14 Blood Pressure 116/59 L Pulse Oximetry 100 Intake & Output 04/22/18 04/23/18 04/23/18 18:59 06:59 18:59 Intake Total 479 / 479 664 / 664 100 / 100 Output Total 650 / 650 725 / 725 Balance -171 / -171 -61 / -61 100 / 100 Weight 101 lb 6.602 oz Intake: IV 167 / 167 100 / 100 Ofirmev Inj 670 mg In 67 ml @ 67 / 67 268 mls/hr IV.SIG Q6H PRN Rx#: [id number] Rocephin Inj 1,000 MG In NS Inj 100 / 100 100 / 100 100 ML @ 200 mls/hr IV.SIG Q24H JORDIN Rx#:[id number] Oral 120 / 120 Tube Feeding 192 / 192 604 / 604 Tube Irrigant 60 / 60 Output: Urine Amount (Catheter) 650 / 650 725 / 725 Indwelling Urethral Catheter 650 / 650 725 / 725 Other: Date of Last Bowel Movement 04/22/18 04/23/18 04/23/18 # Bowel Movements 3 4 # Incontinent Bowel Movements 3 4 Physical Exam: CONSTITUTIONAL/GENERAL: This is a thin, elderly female, lying in bed, somnolent after receiving Ativan, in no acute distress. TUBES/LINES/DRAINS: PIV, Mcgee SKIN: Improving jaundice, multiple ecchymosis scattered over the entire skin, erythema, skin breakdown on buttocks, multiple scabs and skin tears on upper arms and hands. Warm, dry. HEAD: Atraumatic. Normocephalic. EYES: Pupils equal and round and reactive. No scleral icterus. No injection or drainage. Fundi not examined. ENT: Nose without bleeding or purulent drainage. Oral mucosa dry. NECK: Trachea midline. Supple, nontender. No palpable thyroid enlargement or nodularity. CARDIOVASCULAR: Regular rate and rhythm without murmurs, gallops, or rubs. No JVD. Peripheral pulses symmetric. RESPIRATORY/CHEST: Symmetric, unlabored respirations. Clear, diminished to auscultation. Breath sounds equal bilaterally. No wheezes, rales, or rhonchi. GASTROINTESTINAL: Abdomen soft, nondistended. No hepato-splenomegaly, or palpable masses. No guarding. Bowel sounds present. GENITOURINARY: Without palpable bladder distension. Mcgee catheter in place. MUSCULOSKELETAL: Extremities without clubbing, cyanosis, or edema. No mottling or clubbing. LYMPHATICS: No palpable cervical or supraclavicular adenopathy. NEUROLOGICAL: Somnolent, not responding, dysphasic, left weakness, right hemiplegia. PSYCHIATRIC: Somnolent. . Diagnostic Tests Laboratory: Laboratory Results - last 72 hr 04/21/18 04/21/18 04/21/18 13:57 14:00 14:00 WBC 10.1 RBC 2.98 L Hgb 9.5 L POC Hgb (Calc) Hct 27.6 L POC Hct MCV 92.5 MCH 31.8 MCHC 34.4 RDW 13.8 Plt Count 405 MPV 6.4 L Neut % (Auto) 78.1 H Lymph % (Auto) 13.0 Sully % (Auto) 7.1 Eos % (Auto) 0.9 Baso % (Auto) 0.9 Neut # (Auto) 7.9 H Lymph # (Auto) 1.3 Sully # (Auto) 0.7 Eos # (Auto) 0.1 Baso # (Auto) 0.1 WBC Differential . Differential Comment Auto diff final ESR PT 10.0 INR 1.0 APTT 27.5 POC Sodium Sodium POC Potassium Potassium POC Chloride Chloride Carbon Dioxide Anion Gap POC BUN BUN Creatinine POC Creatinine Estimated GFR POC Glucose 133 H Random Glucose Hemoglobin A1c Calcium Phosphorus Magnesium Total Bilirubin AST ALT Alkaline Phosphatase Total Creatine Kinase Troponin I Total Protein Albumin Triglycerides Cholesterol LDL Cholesterol, Calc HDL Cholesterol Cholesterol/HDL Ratio Vitamin B12 TSH Urine Color Urine Clarity Urine pH Ur Specific [address] Urine Protein Urine Glucose (UA) Urine Ketones Urine Occult Blood Urine Nitrate Urine Bilirubin Urine Urobilinogen Ur Leukocyte Esterase Urine RBC Urine WBC Urine Bacteria Micro UA Comment Urine Culture Comments Nasal Screen MRSA (PCR) Blood Type Antibody Screen 04/21/18 04/21/18 04/21/18 14:00 14:00 14:00 WBC RBC Hgb POC Hgb (Calc) 8.8 L Hct POC Hct 26.0 L MCV MCH MCHC RDW Plt Count MPV Neut % (Auto) Lymph % (Auto) Sully % (Auto) Eos % (Auto) Baso % (Auto) Neut # (Auto) Lymph # (Auto) Sully # (Auto) Eos # (Auto) Baso # (Auto) WBC Differential Differential Comment ESR PT INR APTT POC Sodium 135 L Sodium POC Potassium 4.0 Potassium POC Chloride 98 L Chloride Carbon Dioxide Anion Gap POC BUN 40 H BUN Creatinine POC Creatinine 1.3 Estimated GFR POC Glucose 106 Random Glucose Hemoglobin A1c Calcium Phosphorus Magnesium Total Bilirubin AST ALT Alkaline Phosphatase Total Creatine Kinase 35 Troponin I 0.16 H Total Protein Albumin Triglycerides Cholesterol LDL Cholesterol, Calc HDL Cholesterol Cholesterol/HDL Ratio Vitamin B12 TSH Urine Color Urine Clarity Urine pH Ur Specific [address] Urine Protein Urine Glucose (UA) Urine Ketones Urine Occult Blood Urine Nitrate Urine Bilirubin Urine Urobilinogen Ur Leukocyte Esterase Urine RBC Urine WBC Urine Bacteria Micro UA Comment Urine Culture Comments Nasal Screen MRSA (PCR) Blood Type A Positive Antibody Screen Negative 04/21/18 04/21/18 04/21/18 14:00 15:15 17:39 WBC RBC Hgb POC Hgb (Calc) Hct POC Hct MCV MCH MCHC RDW Plt Count MPV Neut % (Auto) Lymph % (Auto) Sully % (Auto) Eos % (Auto) Baso % (Auto) Neut # (Auto) Lymph # (Auto) Sully # (Auto) Eos # (Auto) Baso # (Auto) WBC Differential Differential Comment ESR 69 H PT INR APTT POC Sodium Sodium POC Potassium Potassium POC Chloride Chloride Carbon Dioxide Anion Gap POC BUN BUN Creatinine POC Creatinine Estimated GFR POC Glucose 98 Random Glucose Hemoglobin A1c Calcium Phosphorus Magnesium Total Bilirubin AST ALT Alkaline Phosphatase Total Creatine Kinase Troponin I Total Protein Albumin Triglycerides Cholesterol LDL Cholesterol, Calc HDL Cholesterol Cholesterol/HDL Ratio Vitamin B12 TSH Urine Color Yellow Urine Clarity Cloudy H Urine pH 7.[address] 1.015 Urine Protein Negative Urine Glucose (UA) Negative Urine Ketones Negative Urine Occult Blood Small H Urine Nitrate Negative Urine Bilirubin Negative Urine Urobilinogen 2.0 H Ur Leukocyte Esterase Large H Urine RBC 6 H Urine WBC Urine Bacteria Many H Micro UA Comment Cath-culture ind Urine Culture Comments Cath-cult indicated Nasal Screen MRSA (PCR) Blood Type Antibody Screen 04/21/18 04/21/18 04/21/18 20:12 21:30 22:03 WBC RBC Hgb POC Hgb (Calc) Hct POC Hct MCV MCH MCHC RDW Plt Count MPV Neut % (Auto) Lymph % (Auto) Sully % (Auto) Eos % (Auto) Baso % (Auto) Neut # (Auto) Lymph # (Auto) Sully # (Auto) Eos # (Auto) Baso # (Auto) WBC Differential Differential Comment ESR PT INR APTT POC Sodium Sodium POC Potassium Potassium POC Chloride Chloride Carbon Dioxide Anion Gap POC BUN BUN Creatinine POC Creatinine Estimated GFR POC Glucose 93 Random Glucose Hemoglobin A1c Calcium Phosphorus Magnesium Total Bilirubin AST ALT Alkaline Phosphatase Total Creatine Kinase Troponin I 0.18 H Total Protein Albumin Triglycerides 117 Cholesterol 63 L LDL Cholesterol, Calc 6 HDL Cholesterol 33.9 L Cholesterol/HDL Ratio 1.85 Vitamin B12 1885 H TSH 2.130 Urine Color Urine Clarity Urine pH Ur Specific [address] Urine Protein Urine Glucose (UA) Urine Ketones Urine Occult Blood Urine Nitrate Urine Bilirubin Urine Urobilinogen Ur Leukocyte Esterase Urine RBC Urine WBC Urine Bacteria Micro UA Comment Urine Culture Comments Nasal Screen MRSA (PCR) Mrsa detected Blood Type Antibody Screen 04/22/18 04/22/18 04/22/18 04:30 04:30 11:58 WBC RBC Hgb POC Hgb (Calc) Hct POC Hct MCV MCH MCHC RDW Plt Count MPV Neut % (Auto) Lymph % (Auto) Sully % (Auto) Eos % (Auto) Baso % (Auto) Neut # (Auto) Lymph # (Auto) Sully # (Auto) Eos # (Auto) Baso # (Auto) WBC Differential Differential Comment ESR PT INR APTT POC Sodium Sodium POC Potassium Potassium POC Chloride Chloride Carbon Dioxide Anion Gap POC BUN BUN Creatinine POC Creatinine Estimated GFR POC Glucose 99 Random Glucose Hemoglobin A1c 5.0 Calcium Phosphorus Magnesium Total Bilirubin AST ALT Alkaline Phosphatase Total Creatine Kinase Troponin I 0.16 H Total Protein Albumin Triglycerides 156 H Cholesterol 73 L LDL Cholesterol, Calc 8 HDL Cholesterol 34.2 L Cholesterol/HDL Ratio 2.13 Vitamin B12 TSH Urine Color Urine Clarity Urine pH Ur Specific [address] Urine Protein Urine Glucose (UA) Urine Ketones Urine Occult Blood Urine Nitrate Urine Bilirubin Urine Urobilinogen Ur Leukocyte Esterase Urine RBC Urine WBC Urine Bacteria Micro UA Comment Urine Culture Comments Nasal Screen MRSA (PCR) Blood Type Antibody Screen 04/22/18 04/22/18 04/22/18 12:16 12:16 16:17 WBC 11.7 H RBC 3.22 L Hgb 10.2 L POC Hgb (Calc) Hct 30.5 L POC Hct MCV 94.5 MCH 31.6 MCHC 33.4 RDW 14.3 Plt Count 392 MPV 7.1 Neut % (Auto) 82.4 H Lymph % (Auto) 12.5 Sully % (Auto) 4.3 Eos % (Auto) 0.3 Baso % (Auto) 0.5 Neut # (Auto) 9.6 H Lymph # (Auto) 1.5 Sully # (Auto) 0.5 Eos # (Auto) 0.0 Baso # (Auto) 0.1 WBC Differential . Differential Comment Auto diff final ESR PT INR APTT POC Sodium Sodium 141 POC Potassium Potassium 3.6 POC Chloride Chloride 106 Carbon Dioxide 25.0 Anion Gap 10 POC BUN BUN 41 H Creatinine 1.13 H POC Creatinine Estimated GFR 47 L POC Glucose 81 Random Glucose 72 L Hemoglobin A1c Calcium 7.8 L Phosphorus Magnesium Total Bilirubin AST ALT Alkaline Phosphatase Total Creatine Kinase Troponin I Total Protein Albumin Triglycerides Cholesterol LDL Cholesterol, Calc HDL Cholesterol Cholesterol/HDL Ratio Vitamin B12 TSH Urine Color Urine Clarity Urine pH Ur Specific [address] Urine Protein Urine Glucose (UA) Urine Ketones Urine Occult Blood Urine Nitrate Urine Bilirubin Urine Urobilinogen Ur Leukocyte Esterase Urine RBC Urine WBC Urine Bacteria Micro UA Comment Urine Culture Comments Nasal Screen MRSA (PCR) Blood Type Antibody Screen 04/22/18 04/23/18 04/23/18 20:30 03:39 03:39 WBC 16.4 H RBC 3.21 L Hgb 9.9 L POC Hgb (Calc) Hct 30.6 L POC Hct MCV 95.3 MCH 30.8 MCHC 32.3 RDW 14.3 Plt Count 377 MPV 7.3 Neut % (Auto) 87.2 H Lymph % (Auto) 7.6 L Sully % (Auto) 4.4 Eos % (Auto) 0.3 Baso % (Auto) 0.5 Neut # (Auto) 14.3 H Lymph # (Auto) 1.2 Sully # (Auto) 0.7 Eos # (Auto) 0.0 Baso # (Auto) 0.1 WBC Differential . Differential Comment Auto diff final ESR PT 10.7 INR 1.1 APTT POC Sodium Sodium POC Potassium Potassium POC Chloride Chloride Carbon Dioxide Anion Gap POC BUN BUN Creatinine POC Creatinine Estimated GFR POC Glucose 103 Random Glucose Hemoglobin A1c Calcium Phosphorus Magnesium Total Bilirubin AST ALT Alkaline Phosphatase Total Creatine Kinase Troponin I Total Protein Albumin Triglycerides Cholesterol LDL Cholesterol, Calc HDL Cholesterol Cholesterol/HDL Ratio Vitamin B12 TSH Urine Color Urine Clarity Urine pH Ur Specific [address] Urine Protein Urine Glucose (UA) Urine Ketones Urine Occult Blood Urine Nitrate Urine Bilirubin Urine Urobilinogen Ur Leukocyte Esterase Urine RBC Urine WBC Urine Bacteria Micro UA Comment Urine Culture Comments Nasal Screen MRSA (PCR) Blood Type Antibody Screen 04/23/18 04/23/18 03:39 12:56 WBC RBC Hgb POC Hgb (Calc) Hct POC Hct MCV MCH MCHC RDW Plt Count MPV Neut % (Auto) Lymph % (Auto) Sully % (Auto) Eos % (Auto) Baso % (Auto) Neut # (Auto) Lymph # (Auto) Sully # (Auto) Eos # (Auto) Baso # (Auto) WBC Differential Differential Comment ESR PT INR APTT POC Sodium Sodium 145 POC Potassium Potassium 3.4 L POC Chloride Chloride 112 H Carbon Dioxide 19.8 L Anion Gap 13 POC BUN BUN 33 H Creatinine 1.10 H POC Creatinine Estimated GFR 49 L POC Glucose 125 H Random Glucose 133 H Hemoglobin A1c Calcium 7.8 L Phosphorus 2.9 Magnesium 1.9 Total Bilirubin 0.3 AST 25 ALT 17 Alkaline Phosphatase 148 H Total Creatine Kinase Troponin I Total Protein 6.5 Albumin 2.1 L Triglycerides Cholesterol LDL Cholesterol, Calc HDL Cholesterol Cholesterol/HDL Ratio Vitamin B12 TSH Urine Color Urine Clarity Urine pH Ur Specific [address] Urine Protein Urine Glucose (UA) Urine Ketones Urine Occult Blood Urine Nitrate Urine Bilirubin Urine Urobilinogen Ur Leukocyte Esterase Urine RBC Urine WBC Urine Bacteria Micro UA Comment Urine Culture Comments Nasal Screen MRSA (PCR) Blood Type Antibody Screen Result Diagrams: 04/24/18 05:04 04/24/18 05:04 Microbiology: Microbiology 04/21/18 15:15 Urine Culture - Final Catheterized Urine Escherichia coli ESBL positive Imaging: Chest X-Ray 04/21/18 13:56 CONCLUSION: Technically Limited exam grossly negative for acute process Head CT 04/21/18 13:56 CONCLUSION: 1. No acute intracranial abnormality is identified to explain the clinical symptoms. 2. Bilateral areas of encephalomalacia, as above, related to prior infarcts. 3. Chronic findings include generalized atrophy and moderate severity chronic white matter changes. These findings were telephoned to Dr. Yap via telephone on 04/21/2018 at 2:11 PM. Head CTA 04/21/18 13:56 CONCLUSION: No intracranial vascular abnormality is identified. These findings were telephoned to Dr. Orr on 04/21/2018 at 2:24 PM. Neck CTA 04/21/18 13:56 CONCLUSION: No evidence of carotid stenosis. Head MRI 04/23/18 00:00 CONCLUSION: 1. There is a new area of acute infarction involving the right temporal posterior parietal lobe. 2. There is a new area of subacute infarction involving the left posterior parietal lobe. 3. No definite acute intracranial hemorrhage is seen. 4. Diffuse bilateral cortical atrophy and chronic white matter changes are again demonstrated. Head CT 04/23/18 00:03 CONCLUSION: 1. There is cytotoxic edema within the right temporoparietal region corresponding with the area of restricted diffusion documented on today's MRI. No acute blood products are present. 2. Stable chronic changes include bilateral areas of encephalomalacia and generalized atrophy with chronic periventricular white matter change. . Assessment and Plan Pertinent Non-Medical Issues: Psychosocial: She was born in [place] and moved to [place] in 1977 with her second . She had 1 daughter, Rae, by her first . 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 She had previously liked bicycling and loved her 2 dogs. 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 Legal: No advanced directive paperwork completed. Ethical issues impacting care: None noted. . Important Contacts: Daughter: Rae Muniz : Keegan Mills , . Prognosis: Her prognosis is very poor. She has sustained multiple strokes of unknown etiology, and has a bedbound existence. 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 She currently has a PEG tube and is receiving tube feeding, which has significantly worsened her diarrhea from intermittent episodes to constant, chronic requiring cee-care every 30-60 minutes around-the -clock resulting in skin impairment and breakdown. In addition to her baseline right hemiplegia, left weakness, dysphasia, dysarthria she has now become somnolent and not interacting with staff or family. She is clearly declining and would be hospice appropriate consistent. If the decision-maker expresses aggressive goals, she is at significant risk for continued complications, readmissions and decline. . Code Status: Full Code Plan: PLAN: Legal decision maker: The patient is not capacitated at this time for decision-making and it is uncertain whether she will ever regain capacity. [place] statutes her , Keegan Mills would be the legal proxy decision maker. Goals: Aggressive at this time. CODE STATUS: FULL CODE SYMPTOMS: * Altered mental status: She was previously alert and interactive with the family, per the daughter. She is currently somnolent, not responding to command. Preliminary urine culture shows gram-negative rods and the patient has been receiving ceftriaxone. Culture and sensitivity returned today showing ESBL positive E. coli infection, resistant to penicillins, cephalosporins. Antibiotic has been changed to Bactrim, which the culture shows sensitivity to. * Anxiety: No anxiety is noted today after patient received Ativan to suppress spontaneous movement during imaging studies, however she remains somnolent and non-interactive. * Pain: Per the daughter, her primary source of pain has been her buttocks excoriation. Daughter complaining of dry oral mucosa and requesting more frequent mouth care. Would recommend gentle and frequent cee-care to maintain cleanliness and comfort. May benefit from a wound consult. * Weakness: She has had multiple strokes and has sustained right hemiplegia, mild left weakness, dysphagia. PT, ST consults have been ordered. Palliative care will continue to follow the patient during hospital course as condition evolves, to assist patient/decision-maker with understanding of their medical conditions, weighing benefits/burdens of treatment options, for clarification of goals of treatment. Additionally will assist with any symptoms of palliative concern. . Attestation Attestation: To help prompt me to consider important information that might be impacting today's encounter and assessment, information from prior notes written by myself or my colleagues may have been "brought forward" into today's note. My signature on this note, however, is an attestation that I personally performed the exam, history, and/or decision-making noted today, and, unless otherwise indicated, the interactions with patient, family, and staff as well as the review of records all occurred today. I also attest that the listed assessment and stated plan reflect my best clinical judgment today based on the combination of historical information, prior notes, and today's exam/ interactions. When time spent is documented, it refers only to time spent today by the signer, or if indicated, combined time spent today by collaborating physician/nurse practitioner. .
--- NOTE | 2018-04-23 17:13 | ECHRPT ---
Indication: Persistent atrial fibrillation CONCLUSIONS Technically difficult study without adequate imaging to assess chamber or valve function. Patient w as unable to follow commands. There was poor acoustic imaging. BP: / HR: Rhythm: Sinus Technical Quality:Very technically difficult study Robert Ba MD, FACC (Electronically Signed) Final Date:23 April 2018 17:12
[2018-04-23] MEDS: Sulfamethoxazole/Trimethoprim 400/80 MG Tablet NG/OG SCH (20:33)
[2018-04-24] MEDS: Insulin NovoLOG Aspart Correctional Sugar Inj SQ SCH ×3 (02:48→15:53)
[2018-04-24 05:53] LABS: Baso # (Auto) 0.1 th/mm3 (0.0-0.2); Baso % (Auto) 0.4 % (0.0-2.0); Eos # (Auto) 0.2 th/mm3 (0.0-0.4); Eos % (Auto) 1.1 % (0.0-4.0); Hematocrit 24.2 % (35.0-46.0); Hemoglobin 8.1 gm/dL (11.6-15.3); Lymph # (Auto) 1.5 th/mm3 (1.0-4.8); Lymph % (Auto) 9.9 % (9.0-44.0); Mean Corpuscular HGB Conc 33.6 % (32.0-36.0); Mean Corpuscular Hemoglobin 31.5 pg (27.0-34.0); Mean Corpuscular Volume 93.9 fL (80.0-100.0); Mean Platelet Volume 6.9 fL (7.0-11.0); Mono # (Auto) 0.7 th/mm3 (0.0-0.9); Mono % (Auto) 5.1 % (0.0-8.0); Neut # (Auto) 12.3 th/mm3 (1.8-7.7); Neut % (Auto) 83.5 % (16.0-70.0); Platelet Count 332 th/mm3 (150-450); Red Blood Count 2.57 mil/mm3 (4.00-5.30); Red Cell Distribution Width 14.4 % (11.6-17.2); White Blood Count 14.7 th/mm3 (4.0-11.0)
[2018-04-24 06:25] LABS: Calcium 7.6 mg/dL (8.5-10.1); Carbon Dioxide 22.8 meq/L (21.0-32.0); Potassium 3.4 meq/L (3.5-5.1)
[2018-04-24] MEDS: dilTIAZem CD 240 MG Capsule PO SCH ×2 (09:54→14:39)
[2018-04-24] MEDS: Sulfamethoxazole/Trimethoprim 400/80 MG Tablet NG/OG SCH ×3 (09:54→22:00)
[2018-04-24] MEDS: Senna/Docusate Sodium 8.6/50 MG Tablet PO SCH ×2 (09:54→22:00)
[2018-04-24] MEDS ORDERED: Sodium Chloride 0.45 % Inj 1,000 ML IV.CONT SCH (10:30)
--- NOTE | 2018-04-24 10:52 | P.PNFP ---
Subjective Interval history: Patient resting comfortably in bed sound asleep. According to nursing patient became agitated before MRI yesterday and neurology insisted on imaging so patient was given Ativan. Around dinnertime patient became less somnolent and was more agitated and moving spontaneously. However this morning patient very somnolent but not in any acute distress. G-tubing having some leakage that nursing was attending to this morning. <Ivana Fernando - 04/24/18 10:52> Results - Labs Result diagrams: 04/24/18 05:04 04/24/18 05:04 <Richard Chau E - 04/24/18 12:15> Abnormal lab results 04/23/18 04/24/18 04/24/18 Range/Units 12:56 05:04 05:04 WBC 14.7 H (4.0-11.0) th/mm3 RBC 2.57 L (4.00-5.30) mil/mm3 Hgb 8.1 L (11.6-15.3) gm/dL Hct 24.2 L (35.0-46.0) % MPV 6.9 L (7.0-11.0) fL Neut % (Auto) 83.5 H (16.0-70.0) % Neut # (Auto) 12.3 H (1.8-7.7) th/mm3 Sodium 149 H (136-145) meq/L Potassium 3.4 L (3.5-5.1) meq/L Chloride 117 H (98-107) meq/L BUN 29 H (7-18) mg/dL Estimated GFR 55 L (>89) mL/min POC Glucose 125 H (68-110) mg/dl Random Glucose 114 H (74-106) mg/dL Calcium 7.6 L (8.5-10.1) mg/dL Short CBC 04/24/18 Range/Units 05:04 WBC 14.7 H (4.0-11.0) th/mm3 Hgb 8.1 L (11.6-15.3) gm/dL Hct 24.2 L (35.0-46.0) % Plt Count 332 (150-450) th/mm3 BMP 04/24/18 05:04 Sodium 149 H Potassium 3.4 L Chloride 117 H Carbon Dioxide 22.8 BUN 29 H Creatinine 1.00 Calcium 7.6 L <Richard Chau - 04/24/18 12:15> Abnormal lab results 04/23/18 04/24/18 04/24/18 Range/Units 12:56 05:04 05:04 WBC 14.7 H (4.0-11.0) th/mm3 RBC 2.57 L (4.00-5.30) mil/mm3 Hgb 8.1 L (11.6-15.3) gm/dL Hct 24.2 L (35.0-46.0) % MPV 6.9 L (7.0-11.0) fL Neut % (Auto) 83.5 H (16.0-70.0) % Neut # (Auto) 12.3 H (1.8-7.7) th/mm3 Sodium 149 H (136-145) meq/L Potassium 3.4 L (3.5-5.1) meq/L Chloride 117 H (98-107) meq/L BUN 29 H (7-18) mg/dL Estimated GFR 55 L (>89) mL/min POC Glucose 125 H (68-110) mg/dl Random Glucose 114 H (74-106) mg/dL Calcium 7.6 L (8.5-10.1) mg/dL Short CBC 04/24/18 Range/Units 05:04 WBC 14.7 H (4.0-11.0) th/mm3 Hgb 8.1 L (11.6-15.3) gm/dL Hct 24.2 L (35.0-46.0) % Plt Count 332 (150-450) th/mm3 BMP 04/24/18 05:04 Sodium 149 H Potassium 3.4 L Chloride 117 H Carbon Dioxide 22.8 BUN 29 H Creatinine 1.00 Calcium 7.6 L <Ivana Fernando - 04/24/18 10:52> Physical Exam Vital signs: Vital Signs 04/23/18 16:00 04/23/18 19:00 04/23/18 20:00 Temperature 98 F 97.9 F Pulse Rate 96 H 80 80 Respiratory Rate 16 17 Blood Pressure 132/62 112/55 L Pulse Oximetry 100 100 04/23/18 20:06 04/24/18 00:00 04/24/18 04:00 Temperature 98.1 F 98.0 F Pulse Rate 89 Respiratory Rate Blood Pressure 137/57 L 126/66 Pulse Oximetry 98 95 99 04/24/18 07:45 04/24/18 07:48 04/24/18 10:17 Temperature Pulse Rate Respiratory Rate 11 L Blood Pressure Pulse Oximetry 99 100 Intake & Output 04/23/18 04/24/18 04/24/18 18:59 06:59 18:59 Intake Total 765 / 765 1515 / 1515 Output Total 550 / 550 2600 / 2600 Balance 215 / 215 -1085 / -1085 Weight 47.9 kg Intake: IV 100 / 100 Rocephin Inj 1,000 MG In NS Inj 100 / 100 100 ML @ 200 mls/hr IV.SIG Q24H [facility] Rx#:[id number] Oral 240 / 240 Tube Feeding 545 / 545 1055 / 1055 Tube Irrigant 120 / 120 220 / 220 Output: Urine 1600 / 1600 Urine Amount (Catheter) 550 / 550 1000 / 1000 Indwelling Urethral Catheter 550 / 550 1000 / 1000 Other: Date of Last Bowel Movement 04/23/18 04/24/18 # Bowel Movements 2 # Incontinent Bowel Movements 4 <Richard Chau - 04/24/18 12:15> Vital Signs 04/23/18 12:00 04/23/18 16:00 04/23/18 19:00 Temperature 98.2 F 98 F Pulse Rate 97 H 96 H 80 Respiratory Rate 14 16 Blood Pressure 116/59 L 132/62 Pulse Oximetry 100 100 04/23/18 20:00 04/23/18 20:06 04/24/18 00:00 Temperature 97.9 F 98.1 F Pulse Rate 80 89 Respiratory Rate 17 Blood Pressure 112/55 L 137/57 L Pulse Oximetry 100 98 95 04/24/18 04:00 04/24/18 07:45 04/24/18 07:48 Temperature 98.0 F Pulse Rate Respiratory Rate 11 L Blood Pressure 126/66 Pulse Oximetry 99 99 04/24/18 10:17 Temperature Pulse Rate Respiratory Rate Blood Pressure Pulse Oximetry 100 Intake & Output 04/23/18 04/24/18 04/24/18 18:59 06:59 18:59 Intake Total 765 / 765 1515 / 1515 Output Total 550 / 550 2600 / 2600 Balance 215 / 215 -1085 / -1085 Weight 47.9 kg Intake: IV 100 / 100 Rocephin Inj 1,000 MG In NS Inj 100 / 100 100 ML @ 200 mls/hr IV.SIG Q24H [facility] Rx#:[id number] Oral 240 / 240 Tube Feeding 545 / 545 1055 / 1055 Tube Irrigant 120 / 120 220 / 220 Output: Urine 1600 / 1600 Urine Amount (Catheter) 550 / 550 1000 / 1000 Indwelling Urethral Catheter 550 / 550 1000 / 1000 Other: Date of Last Bowel Movement 04/23/18 04/24/18 # Bowel Movements 2 # Incontinent Bowel Movements 4 <Ivana Fernando - 04/24/18 10:52> Narrative: GENERAL: Thin female lying in bed SKIN: Warm and dry. No rash. Scattered ecchymoses and scabs noted. HEAD: Atraumatic. Normocephalic. EYES: Pupils equal and round. No scleral icterus. No injection or drainage. ENT: No nasal bleeding or discharge. Mucous membranes are dry NECK: Trachea midline. CARDIOVASCULAR: Regular rate and rhythm. No murmurs. RESPIRATORY: No accessory muscle use. Clear to auscultation, no rales or rhonchi. GASTROINTESTINAL: Abdomen soft, non-tender, nondistended. PEG tube in place clean and dry skin. MUSCULOSKELETAL: Extremities without clubbing, cyanosis, or edema. No obvious deformities. NEUROLOGICAL: Nonverbal right gaze preference no involuntary movements able to get her eyes to cross midline not following mild right gaze preference, not following commands. 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 PSYCHIATRIC: More calm no repetitive speech this a.m. <Ivana Fernando - 04/24/18 10:52> - Urinary Catheter Management Indwelling Urethral Catheter Cath placed during this visit: no <Richard Chau - 04/24/18 12:15> no <Ivana Fernando - 04/24/18 10:52> Assessment and Plan - Assessment (1) Acute ischemic stroke Code(s): I63.9 - Cerebral infarction, unspecified Status: Acute (2) Urinary tract infection Code(s): N39.0 - Urinary tract infection, site not specified Status: Acute (3) Nutrition, metabolism, and development symptoms Code(s): R63.8 - Other symptoms and signs concerning food and fluid intake Status: Acute <Richard Chau E - 04/24/18 12:15> (1) Acute ischemic stroke Code(s): I63.9 - Cerebral infarction, unspecified Status: Acute Plan: Unclear etiology at this time. Patient possibly with new infarct vs other neurologic etiology CT head did not have acute findings to suggest bleed or infection Patient was less responsive yesterday, so possibly improving. She is more alert today and appears to have delirium, but baseline is not entirely clear. EEG: mild to moderate encephalopathy MRI: new area of acute infarction involving the right temporal posterior parietal lobe and new area of subacute infarction involving the left posterior parietal lobe, but no definite acute intracranial hemorrhage is seen. Echo: difficult study without adequate imaging to assess chamber or valve function. poor acoustic imaging Neurology following: recommending continued Eliquis. IV Celebrex started 04/21, switching to Keppra PT/OT evaluation Speech: nothing by mouth. tube feeds Continue to monitor clinically Palliative care consult per neuro; family still wants aggressive care Continue marino for now Urinalysis concerning for UTI, Rocephin initiated 04/22, Culture E coli ESB, antibiotics switched to Bactrim (2) Urinary tract infection Code(s): N39.0 - Urinary tract infection, site not specified Status: Acute Plan: Noted to have abnormal UA Urine culture E coli ESB Rocephin 1g daily (04/22-04/23) switched to Bactrim one tablet BID for 3 days (3) Nutrition, metabolism, and development symptoms Code(s): R63.8 - Other symptoms and signs concerning food and fluid intake Status: Acute Plan: Diet: 45 mL/hr Jevity with 200 mL water q 6 hrs DVT: SCD and home eliquis Electrolytes: replete as needed.K lite 25mEq BID 04/24-04/27 <Ivana Fernando - 04/24/18 10:41> - Assessment and Plan Attending note: Patient seen with resident team on morning of 04/24/18. Discussed eval, management and agree with orders as written. Richard Chau <Richard Chau - 04/24/18 12:15> 72 year old female PMH multiple previous strokes, right-sided weakness and contractures, left-sided weakness, kidney stones presents with altered mental status. Not tPA candidate and on eliquis at home. 8/21 CT head:No acute intracranial abnormality is identified to explain the clinical symptoms, Bilateral areas of encephalomalacia, as above, related to prior infarcts, Chronic findings include generalized atrophy and moderate severity chronic white matter changes. Chest x-ray limited but negative for acute processes. Head CTA No intracranial vascular abnormality is identified. Neck CTA no evidence of carotid stenosis. Neurology consulted and ordered MRI, EEG, home Eliquis, IV celebrex then switched to Keppra. EEG showed mild to moderate encephalopathy. Palliative care consulted. Patient started on Jevity 45 mL/hr feeds. 04/23 UCX grew Ecoli ESB switched from Rocephin IV to bactrim one tablet BID for [address] showed cytotoxic edema within the right temporoparietal region corresponding with the area of restricted diffusion documented on MRI. No acute blood products present. Stable chronic changes noted. MRI showed new area of acute infarction involving the right temporal posterior parietal lobe and new area of subacute infarction involving the left posterior parietal lobe, but no definite acute intracranial hemorrhage is seen. Cardiac echo difficult study without adequate imaging to assess chamber or valve function. poor acoustic imaging. 04/24 G tube replaced by interventional radiology. Disposition: unknown Discharge: unknown. CM following and palliative care still consulted Discussed with Dr. Chau <Ivana Fernando 04/24/18 10:52> Progress Note: Quality - Stroke Contraindication Not Initiating IV-Tpa: Contraindicated <Ivana Fernando 10:52> Onset of Symptoms Date: 04/21/18 <Ivana Fernando 04/24/18 10:52> Onset of Symptoms Time: 12:30 <Ivana Fernando 04/24/18 10:52> Contraindication Antithromb by Day Two: Contraindicated <Ivana Fernando 10:52>
[2018-04-24] MEDS ORDERED: fentaNYL Citrate Inj 250 MCG/5 ML Ampul ONE (15:26)
[2018-04-24] MEDS ORDERED: Iohexol 350 MG/ML 50 ML Vial (for Rad Diag) G-TUBE ONE (15:30)
--- NOTE | 2018-04-24 15:55 | IR ---
EXAM DATE: 04/24/2018 3:51 PM EDT AGE/SEX: 72 years / Female INDICATIONS: Patient with history of CVA in need of G-tube exchange. CLINICAL DATA: This is the patient's initial encounter. Patient reports that signs and symptoms have been present for 3 days and indicates a pain score of Nonresponsive. MEDICAL/SURGICAL HISTORY: CVA, Dysphagia, Kidney stones,Contractures PEG tube placement, Stomach rese ction COMPARISON: No prior exams available for comparison. FLUORO TIME (min): 0.1 IMAGE SERIES: 1 SEDATION TIME (min): 10 CONTRAST (cc): 5cc Omnipaque (iohexol) 350 MEDICATION(S): 150mcg fentanyl (Sublimaze) IV DEVICE(S): 18 Indonesian gastrostomy tube . . PROCEDURE: 1. Fluoroscopically guided gastrostomy tube exchange. 2. Conscious sedation with continuous EKG and oximetry monitoring. The risks, benefits and alternatives to the procedure were explained and verbal and written consent w as obtained. The site was prepped in sterile fashion. Full sterile technique was used, including ca p, mask, sterile gloves and gown and a large sterile sheet. Hand hygiene and 2% chlorhexidine and/or betadine/alcohol prep was utilized per protocol for cutaneous antisepsis. The skin and subcutaneous tissues were infiltrated with local anesthetic solution. The existing tube was accessed using sterile technique. The tube was removed over a 0.035 wire. A ne w tube was advanced over the wire and positioned into the stomach without difficulty. The balloon wa s inflated with appropriate volume of saline. Injection of positive contrast demonstrates good posit ion of the gastrostomy tube. Conscious sedation was performed with the prescribed dosages and duration as above in the presence of an independent trained radiology nurse to assist in the monitoring of the patient. EKG and oximetry remained stable throughout the procedure. The patient tolerated the procedure well and there were n o complications. The patient was sent to post anesthesia recovery in stable condition. CONCLUSION: 1. Uncomplicated gastrostomy tube exchange as above. Electronically signed by: Edwin De La Cruz MD 04/24/2018 3:53 PM EDT
--- NOTE | 2018-04-24 16:32 | P.PNNEU ---
Subjective Subjective Comments: No acute events Active Medications: Active Medications Acetaminophen (Tylenol) 650 mg PO Q6H PRN PRN Reason: FEVER >101F, PAIN Al Hydroxide/Mg Hydroxide (Milk Of Magnesia Liq) 30 ml PO Q12H PRN PRN Reason: Mild Constipation Albuterol (*Albuterol Neb Periprocedure Only) 2.5 mg NEB Q6HR NEB PRN PRN Reason: Shortness Of Breath Apixaban (Eliquis) 5 mg PO BID [facility] Last Admin: 04/24/18 14:39 Dose: Not Given Atorvastatin Calcium (Lipitor) 40 mg PO DAILY [facility] Last Admin: 04/24/18 14:39 Dose: Not Given Bisacodyl (Dulcolax Supp) 10 mg RECTAL DAILY PRN PRN Reason: SEVERE CONSITIPATION Dextrose (D50w Vial) 50 ml IV.PUSH UNSCH PRN PRN Reason: PER HYPOGLYCEMIA PROTOCOL Diltiazem HCl (Cardizem Cd 24hr) 240 mg PO DAILY [facility] Last Admin: 04/24/18 14:39 Dose: Not Given Glucagon (Glucagon Inj) 1 mg OTHER UNSCH PRN PRN Reason: for Hypoglycemia Protocol Lactulose (Lactulose Liq) 30 ml PO DAILY PRN PRN Reason: SEVERE CONSITIPATION Lansoprazole (Prevacid Solutab) 30 mg PO DAILY [facility] Last Admin: 04/24/18 14:40 Dose: Not Given Levetiracetam (Keppra Liq) 500 mg NG/OG BID [facility] Last Admin: 04/24/18 14:39 Dose: Not Given Potassium Bicarbonate (Effer-K) 25 meq PO BID [facility] Stop: 04/27/18 20:59 Senna/Docusate Sodium (Shania-Colace) 1 tab PO BID [facility] Last Admin: 04/24/18 09:54 Dose: Not Given Sennosides (Senokot) 17.2 mg PO Q12H PRN PRN Reason: Moderate Constipation Sodium Chloride (Ns Flush) 2 ml IV.FLUSH PRN PRN PRN Reason: FLUSH AFTER USING IV ACCESS Sodium Chloride (Ns Flush) 2 ml IV.FLUSH BID [facility] Last Admin: 04/24/18 09:54 Dose: 2 ml Sterile Water (Free Water) 0 ml G-TUBE Q6HR [facility] Last Admin: 04/24/18 14:40 Dose: Not Given Trimethoprim/Sulfamethoxazole (Bactrim) 1 tab NG/OG Q12HR [facility] Stop: 04/26/18 20:59 Last Admin: 04/24/18 14:39 Dose: Not Given Allergies/Adverse Reactions: Allergies Allergy/AdvReac Type Severity Reaction Status Date / Time No Known Allergies Allergy Verified 04/21/18 16:24 Review of Systems All other systems reviewed negative except as stated in HPI Physical Exam Vital signs: Vital Signs 04/23/18 19:00 04/23/18 20:00 04/23/18 20:06 Temperature 97.9 F Pulse Rate 80 80 Respiratory Rate 17 Blood Pressure 112/55 L Pulse Oximetry 100 98 04/24/18 00:00 04/24/18 04:00 04/24/18 07:45 Temperature 98.1 F 98.0 F Pulse Rate 89 Respiratory Rate Blood Pressure 137/57 L 126/66 Pulse Oximetry 95 99 99 04/24/18 07:48 04/24/18 08:00 04/24/18 10:17 Temperature 98.5 F Pulse Rate 80 Respiratory Rate 11 L 18 Blood Pressure 109/56 L Pulse Oximetry 100 100 04/24/18 12:00 04/24/18 16:00 Temperature 98.2 F 98.5 F Pulse Rate 86 83 Respiratory Rate 21 9 L Blood Pressure 133/58 L 135/60 Pulse Oximetry 100 97 Intake & Output 04/23/18 04/24/18 04/24/18 18:59 06:59 18:59 Intake Total 765 / 765 1515 / 1515 623 / 623 Output Total 550 / 550 2600 / 2600 515 / 515 Balance 215 / 215 -1085 / -1085 108 / 108 Weight 47.9 kg Intake: IV 100 / 100 400 / 400 1/2 Normal Saline Inj 1,000 ML 400 / 400 @ 75 mls/hr IV.CONT .[id number] [facility] Rx#:[id number] Rocephin Inj 1,000 MG In NS Inj 100 / 100 100 ML @ 200 mls/hr IV.SIG Q24H [facility] Rx#:[id number] Oral 240 / 240 Tube Feeding 545 / 545 1055 / 1055 223 / 223 Tube Irrigant 120 / 120 220 / 220 Output: Urine 1600 / 1600 Urine Amount (Catheter) 550 / 550 1000 / 1000 515 / 515 Indwelling Urethral Catheter 550 / 550 1000 / 1000 515 / 515 Other: Date of Last Bowel Movement 04/23/18 04/24/18 04/23/18 # Bowel Movements 2 2 # Incontinent Bowel Movements 4 Narrative: GENERAL: Thin female lying in bed SKIN: Warm and dry. No rash. Scattered ecchymoses and scabs noted. HEAD: Atraumatic. Normocephalic. EYES: Pupils equal and round. No scleral icterus. No injection or drainage. ENT: No nasal bleeding or discharge. Mucous membranes are dry NECK: Trachea midline. CARDIOVASCULAR: Regular rate and rhythm. No murmurs. RESPIRATORY: No accessory muscle use. Clear to auscultation, no rales or rhonchi. GASTROINTESTINAL: Abdomen soft, non-tender, nondistended. PEG tube in place clean and dry skin. MUSCULOSKELETAL: Extremities without clubbing, cyanosis, or edema. No obvious deformities. NEUROLOGICAL: Nonverbal right gaze preference no involuntary movements able to get her eyes to cross midline not following mild right gaze preference, not following commands. 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 PSYCHIATRIC: More calm - Constitutional no acute distress - Routine HEENT Exam Head: Present: normocephalic - Urinary Catheter Management Indwelling Urethral Catheter Cath placed during this visit: no Objective Laboratory Results - last 24 hr 04/23/18 04/24/18 04/24/18 21:05 05:04 05:04 WBC 14.7 H RBC 2.57 L Hgb 8.1 L Hct 24.2 L MCV 93.9 MCH 31.5 MCHC 33.6 RDW 14.4 Plt Count 332 MPV 6.9 L Neut % (Auto) 83.5 H Lymph % (Auto) 9.9 Guthrie % (Auto) 5.1 Eos % (Auto) 1.1 Baso % (Auto) 0.4 Neut # (Auto) 12.3 H Lymph # (Auto) 1.5 Guthrie # (Auto) 0.7 Eos # (Auto) 0.2 Baso # (Auto) 0.1 WBC Differential . Differential Comment Auto diff final Sodium 149 H Potassium 3.4 L Chloride 117 H Carbon Dioxide 22.8 Anion Gap 9 BUN 29 H Creatinine 1.00 Estimated GFR 55 L POC Glucose 98 Random Glucose 114 H Calcium 7.6 L Review/Management - Diagnosis (1) Encephalopathy acute Code(s): G93.40 - Encephalopathy, unspecified Status: Acute Current Visit: Yes (2) Chronic ischemic left MCA stroke Code(s): I69.30 - Unspecified sequelae of cerebral infarction Status: Acute Current Visit: Yes (3) Chronic ischemic right MCA stroke Code(s): I69.30 - Unspecified sequelae of cerebral infarction Status: Acute Current Visit: Yes (4) Chronic left arterial ischemic stroke, MCA (middle cerebral artery) Code(s): I69.30 - Unspecified sequelae of cerebral infarction Status: Acute Current Visit: Yes (5) Acute right MCA stroke Code(s): I63.511 - Cerebral infarction due to unspecified occlusion or stenosis of right middle cerebral artery Status: Acute Current Visit: Yes - Review/Management Plan: Right temporal lobe stroke with secondary agitated delirium Probable vascular dementia Recommendations MRI brain demonstrates new moderate size right temporal lobe ischemic infarct. Failure on Eliquis. Aspirin via PEG tube Reconsider Coumadin 10-14 days after repeat CAT scans performed to exclude any hemorrhagic transformation depending on clinical status Neuro prognosis looks even poor. Palliative care following appreciate their assistance
--- NOTE | 2018-04-24 17:04 | P.PNPAL ---
Reason for Visit Reason for visit: a. To assist with evaluation and management of symptoms including: Altered mental status, weakness, agitation b. To assist medical decision maker(s) with: better understanding of current medical conditions; weighing benefits/burdens of medical treatment options; making medical treatment decisions. Subjective Subjective/Interval History: Patient seen today to follow-up on symptom management of altered mental status, anxiety, weakness, pain and assist in goals of medical treatment. Patient is awake today, not making eye contact, appears not to be able to see people around her. While her daughter was at bedside, patient continued to call out for her daughter looking around as if trying to see her. When her daughter spoke to her she did not respond continued to call out her name. She does not follow commands or respond to the spoken word. 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 Opined that her neurologic prognosis looks even poor than previous. Continues to appear anxious grasping at bed rails, bed close to and not responding to friends and family's attempts to calm her. No sedating medications have been prescribed. She remains able to move her left side with some residual weakness. Right side with significant weakness secondary to previous stroke. Right gaze preferential. She is not expressing pain today, as she had a previous assessment. She is unable to quantify or qualify her pain. Tylenol is available as needed. . Objective Vital Signs: Vital Signs 04/23/18 19:00 04/23/18 20:00 04/23/18 20:06 Temperature 97.9 F Pulse Rate 80 80 Respiratory Rate 17 Blood Pressure 112/55 L Pulse Oximetry 100 98 04/24/18 00:00 04/24/18 04:00 04/24/18 07:45 Temperature 98.1 F 98.0 F Pulse Rate 89 Respiratory Rate Blood Pressure 137/57 L 126/66 Pulse Oximetry 95 99 99 04/24/18 07:48 04/24/18 08:00 04/24/18 10:17 Temperature 98.5 F Pulse Rate 80 Respiratory Rate 11 L 18 Blood Pressure 109/56 L Pulse Oximetry 100 100 04/24/18 12:00 04/24/18 16:00 Temperature 98.2 F 98.5 F Pulse Rate 86 83 Respiratory Rate 21 9 L Blood Pressure 133/58 L 135/60 Pulse Oximetry 100 97 Intake & Output 08/04/24/18 04/24/18 18:59 06:59 18:59 Intake Total 765 / 765 1515 / 1515 623 / 623 Output Total 550 / 550 2600 / 2600 515 / 515 Balance 215 / 215 -1085 / -1085 108 / 108 Weight 105 lb 9.623 oz Intake: IV 100 / 100 400 / 400 1/2 Normal Saline Inj 1,000 ML 400 / 400 @ 75 mls/hr IV.CONT .[id number] JORDIN Rx#:[id number] Rocephin Inj 1,000 MG In NS Inj 100 / 100 100 ML @ 200 mls/hr IV.SIG Q24H JORDIN Rx#:[id number] Oral 240 / 240 Tube Feeding 545 / 545 1055 / 1055 223 / 223 Tube Irrigant 120 / 120 220 / 220 Output: Urine 1600 / 1600 Urine Amount (Catheter) 550 / 550 1000 / 1000 515 / 515 Indwelling Urethral Catheter 550 / 550 1000 / 1000 515 / 515 Other: Date of Last Bowel Movement 04/23/18 04/24/18 04/23/18 # Bowel Movements 2 2 # Incontinent Bowel Movements 4 Physical Exam: CONSTITUTIONAL/GENERAL: This is a thin, elderly female, lying in bed, in mild distress. TUBES/LINES/DRAINS: PIV, Mcgee SKIN: Improving jaundice, multiple ecchymosis scattered over the entire skin, erythema, skin breakdown on buttocks, multiple scabs and skin tears on upper arms and hands. Warm, dry. HEAD: Atraumatic. Normocephalic. EYES: Pupils equal and round and reactive. No scleral icterus. No injection or drainage. Fundi not examined. ENT: Nose without bleeding or purulent drainage. Oral mucosa dry. NECK: Trachea midline. Supple, nontender. No palpable thyroid enlargement or nodularity. CARDIOVASCULAR: Regular rate and rhythm without murmurs, gallops, or rubs. No JVD. Peripheral pulses symmetric. RESPIRATORY/CHEST: Symmetric, unlabored respirations. Clear, diminished to auscultation. Breath sounds equal bilaterally. No wheezes, rales, or rhonchi. GASTROINTESTINAL: Abdomen soft, nondistended. No hepato-splenomegaly, or palpable masses. No guarding. Bowel sounds present. GENITOURINARY: Without palpable bladder distension. Mcgee catheter in place. MUSCULOSKELETAL: Extremities without clubbing, cyanosis, or edema. No mottling or clubbing. LYMPHATICS: No palpable cervical or supraclavicular adenopathy. NEUROLOGICAL: Awake, moving spontaneously but not to command. Chronic dysphasia , worsened by acute stroke. Does not appear oriented PSYCHIATRIC: Mild agitation. . Diagnostic Tests Laboratory: Laboratory Results - last 72 hr 04/21/18 04/21/18 04/21/18 14:00 15:15 17:39 WBC RBC Hgb Hct MCV MCH MCHC RDW Plt Count MPV Neut % (Auto) Lymph % (Auto) [place] % (Auto) Eos % (Auto) Baso % (Auto) Neut # (Auto) Lymph # (Auto) [place] # (Auto) Eos # (Auto) Baso # (Auto) WBC Differential Differential Comment ESR 69 H PT INR Sodium Potassium Chloride Carbon Dioxide Anion Gap BUN Creatinine Estimated GFR POC Glucose 98 Random Glucose Hemoglobin A1c Calcium Phosphorus Magnesium Total Bilirubin AST ALT Alkaline Phosphatase Troponin I Total Protein Albumin Triglycerides Cholesterol LDL Cholesterol, Calc HDL Cholesterol Cholesterol/HDL Ratio Vitamin B12 TSH Urine Color Yellow Urine Clarity Cloudy H Urine pH 7.0 Ur Specific [place] 1.015 Urine Protein Negative Urine Glucose (UA) Negative Urine Ketones Negative Urine Occult Blood Small H Urine Nitrate Negative Urine Bilirubin Negative Urine Urobilinogen 2.0 H Ur Leukocyte Esterase Large H Urine RBC 6 H Urine WBC Urine Bacteria Many H Micro UA Comment Cath-culture ind Urine Culture Comments Cath-cult indicated Nasal Screen MRSA (PCR) 04/21/18 04/21/18 04/21/18 20:12 21:30 22:03 WBC RBC Hgb Hct MCV MCH MCHC RDW Plt Count MPV Neut % (Auto) Lymph % (Auto) [place] % (Auto) Eos % (Auto) Baso % (Auto) Neut # (Auto) Lymph # (Auto) [place] # (Auto) Eos # (Auto) Baso # (Auto) WBC Differential Differential Comment ESR PT INR Sodium Potassium Chloride Carbon Dioxide Anion Gap BUN Creatinine Estimated GFR POC Glucose 93 Random Glucose Hemoglobin A1c Calcium Phosphorus Magnesium Total Bilirubin AST ALT Alkaline Phosphatase Troponin I 0.18 H Total Protein Albumin Triglycerides 117 Cholesterol 63 L LDL Cholesterol, Calc 6 HDL Cholesterol 33.9 L Cholesterol/HDL Ratio 1.85 Vitamin B12 1885 H TSH 2.130 Urine Color Urine Clarity Urine pH Ur Specific [place] Urine Protein Urine Glucose (UA) Urine Ketones Urine Occult Blood Urine Nitrate Urine Bilirubin Urine Urobilinogen Ur Leukocyte Esterase Urine RBC Urine WBC Urine Bacteria Micro UA Comment Urine Culture Comments Nasal Screen MRSA (PCR) Mrsa detected 04/22/18 04/22/18 04/22/18 04:30 04:30 11:58 WBC RBC Hgb Hct MCV MCH MCHC RDW Plt Count MPV Neut % (Auto) Lymph % (Auto) [place] % (Auto) Eos % (Auto) Baso % (Auto) Neut # (Auto) Lymph # (Auto) [place] # (Auto) Eos # (Auto) Baso # (Auto) WBC Differential Differential Comment ESR PT INR Sodium Potassium Chloride Carbon Dioxide Anion Gap BUN Creatinine Estimated GFR POC Glucose 99 Random Glucose Hemoglobin A1c 5.0 Calcium Phosphorus Magnesium Total Bilirubin AST ALT Alkaline Phosphatase Troponin I 0.16 H Total Protein Albumin Triglycerides 156 H Cholesterol 73 L LDL Cholesterol, Calc 8 HDL Cholesterol 34.2 L Cholesterol/HDL Ratio 2.13 Vitamin B12 TSH Urine Color Urine Clarity Urine pH Ur Specific [place] Urine Protein Urine Glucose (UA) Urine Ketones Urine Occult Blood Urine Nitrate Urine Bilirubin Urine Urobilinogen Ur Leukocyte Esterase Urine RBC Urine WBC Urine Bacteria Micro UA Comment Urine Culture Comments Nasal Screen MRSA (PCR) 04/22/18 04/22/18 04/22/18 12:16 12:16 16:17 WBC 11.7 H RBC 3.22 L Hgb 10.2 L Hct 30.5 L MCV 94.5 MCH 31.6 MCHC 33.4 RDW 14.3 Plt Count 392 MPV 7.1 Neut % (Auto) 82.4 H Lymph % (Auto) 12.5 [place] % (Auto) 4.3 Eos % (Auto) 0.3 Baso % (Auto) 0.5 Neut # (Auto) 9.6 H Lymph # (Auto) 1.5 [place] # (Auto) 0.5 Eos # (Auto) 0.0 Baso # (Auto) 0.1 WBC Differential . Differential Comment Auto diff final ESR PT INR Sodium 141 Potassium 3.6 Chloride 106 Carbon Dioxide 25.0 Anion Gap 10 BUN 41 H Creatinine 1.13 H Estimated GFR 47 L POC Glucose 81 Random Glucose 72 L Hemoglobin A1c Calcium 7.8 L Phosphorus Magnesium Total Bilirubin AST ALT Alkaline Phosphatase Troponin I Total Protein Albumin Triglycerides Cholesterol LDL Cholesterol, Calc HDL Cholesterol Cholesterol/HDL Ratio Vitamin B12 TSH Urine Color Urine Clarity Urine pH Ur Specific [place] Urine Protein Urine Glucose (UA) Urine Ketones Urine Occult Blood Urine Nitrate Urine Bilirubin Urine Urobilinogen Ur Leukocyte Esterase Urine RBC Urine WBC Urine Bacteria Micro UA Comment Urine Culture Comments Nasal Screen MRSA (PCR) 04/22/18 04/23/18 04/23/18 20:30 03:39 03:39 WBC 16.4 H RBC 3.21 L Hgb 9.9 L Hct 30.6 L MCV 95.3 MCH 30.8 MCHC 32.3 RDW 14.3 Plt Count 377 MPV 7.3 Neut % (Auto) 87.2 H Lymph % (Auto) 7.6 L [place] % (Auto) 4.4 Eos % (Auto) 0.3 Baso % (Auto) 0.5 Neut # (Auto) 14.3 H Lymph # (Auto) 1.2 [place] # (Auto) 0.7 Eos # (Auto) 0.0 Baso # (Auto) 0.1 WBC Differential . Differential Comment Auto diff final ESR PT 10.7 INR 1.1 Sodium Potassium Chloride Carbon Dioxide Anion Gap BUN Creatinine Estimated GFR POC Glucose 103 Random Glucose Hemoglobin A1c Calcium Phosphorus Magnesium Total Bilirubin AST ALT Alkaline Phosphatase Troponin I Total Protein Albumin Triglycerides Cholesterol LDL Cholesterol, Calc HDL Cholesterol Cholesterol/HDL Ratio Vitamin B12 TSH Urine Color Urine Clarity Urine pH Ur Specific [place] Urine Protein Urine Glucose (UA) Urine Ketones Urine Occult Blood Urine Nitrate Urine Bilirubin Urine Urobilinogen Ur Leukocyte Esterase Urine RBC Urine WBC Urine Bacteria Micro UA Comment Urine Culture Comments Nasal Screen MRSA (PCR) 04/23/18 04/23/18 04/23/18 03:39 12:56 21:05 WBC RBC Hgb Hct MCV MCH MCHC RDW Plt Count MPV Neut % (Auto) Lymph % (Auto) [place] % (Auto) Eos % (Auto) Baso % (Auto) Neut # (Auto) Lymph # (Auto) [place] # (Auto) Eos # (Auto) Baso # (Auto) WBC Differential Differential Comment ESR PT INR Sodium 145 Potassium 3.4 L Chloride 112 H Carbon Dioxide 19.8 L Anion Gap 13 BUN 33 H Creatinine 1.10 H Estimated GFR 49 L POC Glucose 125 H 98 Random Glucose 133 H Hemoglobin A1c Calcium 7.8 L Phosphorus 2.9 Magnesium 1.9 Total Bilirubin 0.3 AST 25 ALT 17 Alkaline Phosphatase 148 H Troponin I Total Protein 6.5 Albumin 2.1 L Triglycerides Cholesterol LDL Cholesterol, Calc HDL Cholesterol Cholesterol/HDL Ratio Vitamin B12 TSH Urine Color Urine Clarity Urine pH Ur Specific [place] Urine Protein Urine Glucose (UA) Urine Ketones Urine Occult Blood Urine Nitrate Urine Bilirubin Urine Urobilinogen Ur Leukocyte Esterase Urine RBC Urine WBC Urine Bacteria Micro UA Comment Urine Culture Comments Nasal Screen MRSA (PCR) 04/24/18 04/24/18 05:04 05:04 WBC 14.7 H RBC 2.57 L Hgb 8.1 L Hct 24.2 L MCV 93.9 MCH 31.5 MCHC 33.6 RDW 14.4 Plt Count 332 MPV 6.9 L Neut % (Auto) 83.5 H Lymph % (Auto) 9.9 [place] % (Auto) 5.1 Eos % (Auto) 1.1 Baso % (Auto) 0.4 Neut # (Auto) 12.3 H Lymph # (Auto) 1.5 [place] # (Auto) 0.7 Eos # (Auto) 0.2 Baso # (Auto) 0.1 WBC Differential . Differential Comment Auto diff final ESR PT INR Sodium 149 H Potassium 3.4 L Chloride 117 H Carbon Dioxide 22.8 Anion Gap 9 BUN 29 H Creatinine 1.00 Estimated GFR 55 L POC Glucose Random Glucose 114 H Hemoglobin A1c Calcium 7.6 L Phosphorus Magnesium Total Bilirubin AST ALT Alkaline Phosphatase Troponin I Total Protein Albumin Triglycerides Cholesterol LDL Cholesterol, Calc HDL Cholesterol Cholesterol/HDL Ratio Vitamin B12 TSH Urine Color Urine Clarity Urine pH Ur Specific [place] Urine Protein Urine Glucose (UA) Urine Ketones Urine Occult Blood Urine Nitrate Urine Bilirubin Urine Urobilinogen Ur Leukocyte Esterase Urine RBC Urine WBC Urine Bacteria Micro UA Comment Urine Culture Comments Nasal Screen MRSA (PCR) Result Diagrams: 04/24/18 05:04 04/24/18 05:04 Microbiology: Microbiology 04/21/18 15:15 Urine Culture - Final Catheterized Urine Escherichia coli ESBL positive Assessment and Plan Pertinent Non-Medical Issues: Psychosocial: She was born in [place] and moved to [place] in 1977 with her second . She had 1 daughter, Rae, by her first . 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 She had previously liked bicycling and loved her 2 dogs. 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 Legal: No advanced directive paperwork completed. Ethical issues impacting care: None noted. . Important Contacts: Daughter: Rae Muniz : Keegan Mills , . Prognosis: Her prognosis is very poor. She has sustained multiple strokes of unknown etiology, and has a bedbound existence. 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 She currently has a PEG tube and is receiving tube feeding, which has significantly worsened her diarrhea from intermittent episodes to constant, chronic requiring cee-care every 30-60 minutes around-the -clock resulting in skin impairment and breakdown. In addition to her baseline right hemiplegia, left weakness, dysphasia, dysarthria she has now become somnolent and not interacting with staff or family. She is clearly declining and would be hospice appropriate consistent. If the decision-maker expresses aggressive goals, she is at significant risk for continued complications, readmissions and decline. . Code Status: Full Code Plan: PLAN: Legal decision maker: The patient is not capacitated at this time for decision-making and it is uncertain whether she will ever regain capacity. [place] statutes her , Keegan Mills would be the legal proxy decision maker. Goals: Aggressive at this time. CODE STATUS: FULL CODE SYMPTOMS: * Altered mental status: She was previously alert and interactive with the family, per the daughter. She is currently agitated, anxious, not responding to command. Appears unable to see people standing next to the bed. She continues to call out for her daughter, while her daughter is standing next to her. Preliminary urine culture shows gram-negative rods and the patient has been receiving ceftriaxone. Culture and sensitivity returned today showing ESBL positive E. coli infection, resistant to penicillins, cephalosporins. Antibiotic has been changed to Bactrim, which the culture shows sensitivity to. * Anxiety: Displaying anxiety today, grasping at bed rails and bed clothes. * Pain: Per the daughter, her primary source of pain has been her buttocks excoriation. Daughter complaining of dry oral mucosa and requesting more frequent mouth care. Discussed with charge nurse. Would recommend gentle and frequent cee-care to maintain cleanliness and comfort. May benefit from a wound consult. * Weakness: She has had multiple strokes and has sustained right hemiplegia, mild left weakness, dysphagia. PT, ST consults have been ordered. Palliative care will continue to follow the patient during hospital course as condition evolves, to assist patient/decision-maker with understanding of their medical conditions, weighing benefits/burdens of treatment options, for clarification of goals of treatment. Additionally will assist with any symptoms of palliative concern. . Attestation Attestation: To help prompt me to consider important information that might be impacting today's encounter and assessment, information from prior notes written by myself or my colleagues may have been "brought forward" into today's note. My signature on this note, however, is an attestation that I personally performed the exam, history, and/or decision-making noted today, and, unless otherwise indicated, the interactions with patient, family, and staff as well as the review of records all occurred today. I also attest that the listed assessment and stated plan reflect my best clinical judgment today based on the combination of historical information, prior notes, and today's exam/ interactions. When time spent is documented, it refers only to time spent today by the signer, or if indicated, combined time spent today by collaborating physician/nurse practitioner. .
[2018-04-24] MEDS: Potassium Bicarbonate 25 MEQ Effervescent Tablet PO SCH (22:00)
[2018-04-25 07:20] LABS: Baso # (Auto) 0.1 th/mm3 (0.0-0.2); Baso % (Auto) 0.5 % (0.0-2.0); Eos # (Auto) 0.1 th/mm3 (0.0-0.4); Hematocrit 22.8 % (35.0-46.0); Hemoglobin 7.8 gm/dL (11.6-15.3); Lymph # (Auto) 1.3 th/mm3 (1.0-4.8); Lymph % (Auto) 11.9 % (9.0-44.0); Mean Corpuscular HGB Conc 34.4 % (32.0-36.0); Mean Corpuscular Hemoglobin 31.7 pg (27.0-34.0); Mean Corpuscular Volume 92.3 fL (80.0-100.0); Mean Platelet Volume 7.1 fL (7.0-11.0); Mono # (Auto) 0.6 th/mm3 (0.0-0.9); Mono % (Auto) 5.3 % (0.0-8.0); Neut # (Auto) 9.1 th/mm3 (1.8-7.7); Neut % (Auto) 81.3 % (16.0-70.0); Platelet Count 345 th/mm3 (150-450); Red Blood Count 2.47 mil/mm3 (4.00-5.30); White Blood Count 11.2 th/mm3 (4.0-11.0)
[2018-04-25 07:43] LABS: Carbon Dioxide 23.7 meq/L (21.0-32.0); Potassium 4.1 meq/L (3.5-5.1)
--- NOTE | 2018-04-25 08:44 | P.PNFP ---
Subjective Interval history: Patient sleeping in bed. Does not seem to be in any distress and does not express any pain. She has limited spontaneous movement this morning. G-tube was replaced by interventional radiology yesterday. <Ivana Fernando - 04/25/18 08:44> Results - Labs Result diagrams: 04/26/18 04:51 04/26/18 04:51 <Erin Whitehead - 04/26/18 13:54> Abnormal lab results 04/26/18 04/26/18 Range/Units 04:51 04:51 RBC 2.84 L (4.00-5.30) mil/mm3 Hgb 8.8 L (11.6-15.3) gm/dL Hct 26.6 L (35.0-46.0) % Neut % (Auto) 77.8 H (16.0-70.0) % Potassium 5.5 H D (3.5-5.1) meq/L Chloride 111 H (98-107) meq/L BUN 27 H (7-18) mg/dL Creatinine 1.22 H (0.50-1.00) mg/dL Estimated GFR 43 L (>89) mL/min Random Glucose 110 H (74-106) mg/dL Calcium 8.0 L (8.5-10.1) mg/dL Short CBC 04/26/18 Range/Units 04:51 WBC 10.0 (4.0-11.0) th/mm3 Hgb 8.8 L (11.6-15.3) gm/dL Hct 26.6 L (35.0-46.0) % Plt Count 405 (150-450) th/mm3 [facility] 04/26/18 04:51 Sodium 144 Potassium 5.5 H D Chloride 111 H Carbon Dioxide 25.3 BUN 27 H Creatinine 1.22 H Calcium 8.0 L <Erin Whitehead - 04/26/18 13:54> Abnormal lab results 04/25/18 04/25/18 Range/Units 06:09 06:09 WBC 11.2 H (4.0-11.0) th/mm3 RBC 2.47 L (4.00-5.30) mil/mm3 Hgb 7.8 L (11.6-15.3) gm/dL Hct 22.8 L (35.0-46.0) % Neut % (Auto) 81.3 H (16.0-70.0) % Neut # (Auto) 9.1 H (1.8-7.7) th/mm3 Sodium 148 H (136-145) meq/L Chloride 116 H (98-107) meq/L BUN 28 H (7-18) mg/dL Creatinine 1.02 H (0.50-1.00) mg/dL Estimated GFR 53 L (>89) mL/min Random Glucose 113 H (74-106) mg/dL Calcium 8.0 L (8.5-10.1) mg/dL Short CBC 04/25/18 Range/Units 06:09 WBC 11.2 H (4.0-11.0) th/mm3 Hgb 7.8 L (11.6-15.3) gm/dL Hct 22.8 L (35.0-46.0) % Plt Count 345 (150-450) th/mm3 BMP 04/25/18 06:09 Sodium 148 H Potassium 4.1 Chloride 116 H Carbon Dioxide 23.7 BUN 28 H Creatinine 1.02 H Calcium 8.0 L <Ivana Fernando - 04/25/18 08:44> - Imaging Impressions Carotid Doppler Study 04/25/18 16:36 CONCLUSION: 1. Right Internal Carotid Artery: No significant stenosis or atherosclerotic plaque is visualized. 2. Left Internal Carotid Artery: No significant stenosis or atherosclerotic plaque is visualized. 3. Antegrade flow in both vertebral arteries. <Erin Whitehead - 04/26/18 13:54> Impressions Catheter Change 04/24/18 00:00 CONCLUSION: 1. Uncomplicated gastrostomy tube exchange as above. <Ivana Fernando - 04/25/18 08:44> Physical Exam Vital signs: Vital Signs 04/25/18 16:00 04/25/18 21:00 04/26/18 00:15 Temperature 98.7 F 97.8 F 98.7 F Pulse Rate 96 H 86 80 Respiratory Rate 18 20 21 Blood Pressure 137/79 170/89 H 167/87 H Pulse Oximetry 98 99 99 04/26/18 06:50 04/26/18 08:20 04/26/18 10:43 Temperature 98.2 F Pulse Rate 112 H 79 Respiratory Rate 21 18 Blood Pressure 160/88 H Pulse Oximetry 96 04/26/18 12:55 Temperature Pulse Rate 93 H Respiratory Rate Blood Pressure Pulse Oximetry Intake & Output 04/25/18 04/26/18 04/26/18 18:59 06:59 18:59 Intake Total 0 / 0 Output Total 500 / 500 1700 / 1700 Balance -500 / -500 -1700 / -1700 Weight 48 kg Intake: Oral 0 / 0 Output: Urine Amount (Catheter) 500 / 500 1700 / 1700 Indwelling Urethral Catheter 500 / 500 1700 / 1700 Other: Date of Last Bowel Movement 04/25/18 # Bowel Movements 2 # Incontinent Bowel Movements 2 4 <Erin Whitehead M - 04/26/18 13:54> Vital Signs 04/24/18 10:17 04/24/18 12:00 04/24/18 16:00 Temperature 98.2 F 98.5 F Pulse Rate 86 83 Respiratory Rate 21 9 L Blood Pressure 133/58 L 135/60 Pulse Oximetry 100 100 97 04/24/18 17:58 04/24/18 18:06 04/24/18 20:00 Temperature 97.5 F L 97.6 F Pulse Rate 85 86 89 Respiratory Rate 12 18 Blood Pressure 121/74 Pulse Oximetry 97 98 04/25/18 00:00 04/25/18 04:00 04/25/18 08:00 Temperature 97.8 F 98.5 F 97.7 F Pulse Rate 102 H 93 H 93 H Respiratory Rate 18 18 18 Blood Pressure 139/76 126/59 L 130/63 Pulse Oximetry 98 97 98 Intake & Output 04/24/18 04/25/18 04/25/18 18:59 06:59 18:59 Intake Total 623 / 623 Output Total 515 / 515 850 / 850 Balance 108 / 108 -850 / -850 Weight 47.9 kg Intake: IV 400 / 400 1/2 Normal Saline Inj 1,000 ML 400 / 400 @ 75 mls/hr IV.CONT .[id number] [facility] Rx#:[id number] Tube Feeding 223 / 223 Output: Urine 850 / 850 Urine Amount (Catheter) 515 / 515 Indwelling Urethral Catheter 515 / 515 Other: Date of Last Bowel Movement 04/24/18 04/24/18 # Bowel Movements 2 <Ivana Fernando - 04/25/18 08:44> Narrative: GENERAL: Thin female lying in bed SKIN: Warm and dry. No rash. Scattered ecchymoses and scabs noted. HEAD: Atraumatic. Normocephalic. EYES: Pupils equal and round. No scleral icterus. No injection or drainage. ENT: No nasal bleeding or discharge. Mucous membranes are dry NECK: Trachea midline. CARDIOVASCULAR: Regular rate and rhythm. No murmurs. RESPIRATORY: No accessory muscle use. Clear to auscultation, no rales or rhonchi. GASTROINTESTINAL: Abdomen soft, non-tender, nondistended. PEG tube in place clean and dry skin. MUSCULOSKELETAL: Extremities without clubbing, cyanosis, or edema. No obvious deformities. NEUROLOGICAL: Nonverbal right gaze preference no involuntary movements able to get her eyes to cross midline not following mild right gaze preference, not following commands. 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 PSYCHIATRIC: More calm <Ivana Fernando - 04/25/18 08:44> - Urinary Catheter Management Indwelling Urethral Catheter Cath placed during this visit: no <AlfordErin Kaleb - 04/26/18 13:54> no <vIana Fernando - 04/25/18 08:44> Assessment and Plan - Assessment (1) Acute ischemic stroke Code(s): I63.9 - Cerebral infarction, unspecified Status: Acute Onset Date: 04/21/18 (2) Urinary tract infection Code(s): N39.0 - Urinary tract infection, site not specified Status: Acute (3) Anemia Code(s): D64.9 - Anemia, unspecified Status: Acute (4) Nutrition, metabolism, and development symptoms Code(s): R63.8 - Other symptoms and signs concerning food and fluid intake Status: Acute <Erin Whitehead - 04/26/18 13:54> (1) Acute ischemic stroke Code(s): I63.9 - Cerebral infarction, unspecified Status: Acute Plan: Unclear etiology at this time. Patient possibly with new infarct vs other neurologic etiology CT head did not have acute findings to suggest bleed or infection Patient was less responsive yesterday, so possibly improving. She is more alert today and appears to have delirium, but baseline is not entirely clear. EEG: mild to moderate encephalopathy MRI: new area of acute infarction involving the right temporal posterior parietal lobe and new area of subacute infarction involving the left posterior parietal lobe, but no definite acute intracranial hemorrhage is seen. Echo: difficult study without adequate imaging to assess chamber or valve function. poor acoustic imaging Neurology followin/24 Aspirin via PEG tube and Eliquis discontinued; Reconsider Coumadin 10-14 days after repeat CAT scans performed to exclude any hemorrhagic transformation depending on clinical status IV Celebrex started 04/21, switching to Keppra PT/OT evaluation Speech: nothing by mouth. tube feeds Continue to monitor clinically Palliative care consult per neuro; family still wants aggressive care Continue marino for now Urinalysis concerning for UTI, Rocephin initiated 04/22, Culture E coli ESB, antibiotics switched to Bactrim (2) Urinary tract infection Code(s): N39.0 - Urinary tract infection, site not specified Status: Acute Plan: Noted to have abnormal UA Urine culture E coli ESB Rocephin 1g daily (04/22-04/23) switched to Bactrim one tablet BID for 3 days (3) Nutrition, metabolism, and development symptoms Code(s): R63.8 - Other symptoms and signs concerning food and fluid intake Status: Acute Plan: Diet: 45 mL/hr Jevity with 200 mL water q 6 hrs DVT: SCD Electrolytes: replete as needed.K lite 25mEq BID 04/24-04/27 <Ivana Fernando - 04/25/18 08:37> - Assessment and Plan 72 year old female PMH multiple previous strokes, right-sided weakness and contractures, left-sided weakness, kidney stones presents with altered mental status. Not tPA candidate and on eliquis at home. 04/21 CT head:No acute intracranial abnormality is identified to explain the clinical symptoms, Bilateral areas of encephalomalacia, as above, related to prior infarcts, Chronic findings include generalized atrophy and moderate severity chronic white matter changes. Chest x-ray limited but negative for acute processes. Head CTA No intracranial vascular abnormality is identified. Neck CTA no evidence of carotid stenosis. Neurology consulted and ordered MRI, EEG, home Eliquis, IV celebrex then switched to Keppra. EEG showed mild to moderate encephalopathy. Palliative care consulted. Patient started on Jevity 45 mL/hr feeds. 04/23 UCX grew Ecoli ESB switched from Rocephin IV to bactrim one tablet BID for [address] showed cytotoxic edema within the right temporoparietal region corresponding with the area of restricted diffusion documented on MRI. No acute blood products present. Stable chronic changes noted. MRI showed new area of acute infarction involving the right temporal posterior parietal lobe and new area of subacute infarction involving the left posterior parietal lobe, but no definite acute intracranial hemorrhage is seen. Cardiac echo difficult study without adequate imaging to assess chamber or valve function. poor acoustic imaging. 04/24 G-tube replaced by interventional radiology. Neurology stopped Eliquis and switched to aspirin for anticoagulation. <Ivana Fernando 04/25/18 08:44> - Attending Attestation The exam, history, and the medical decision-making described in the above note were completed with the assistance of the resident physician. I reviewed and agree with the findings presented. I attest that I had a [id number] encounter with the patient on the same day, and personally performed and documented my assessment and findings in the medical record. She is extremely debilitated and not able to care for herself. She is not able cognitively to answer any questions and simply seems to repeat words. <Erin Whitehead - 04/26/18 13:54> Progress Note: Quality - Stroke Contraindication Not Initiating IV-Tpa: Contraindicated <Ivana Fernando 08:44> Onset of Symptoms Date: 04/21/18 <Ivana Fernando 04/25/18 08:44> Onset of Symptoms Time: 12:30 <Ivana Fernando 04/25/18 08:44> Contraindication Antithromb by Day Two: Contraindicated <Ivana Fernando 08:44> <Erin Whitehead - Last Filed: 04/26/18 13:54> (2) Urinary tract infection Qualifiers: Urinary tract infection type: acute pyelonephritis Qualified Code(s): N10 - Acute pyelonephritis <Erin Whitehead M - Last Filed: 04/26/18 13:54> (2) Urinary tract infection Qualifiers: Urinary tract infection type: acute pyelonephritis Qualified Code(s): N10 - Acute pyelonephritis
[2018-04-25] MEDS: dilTIAZem CD 240 MG Capsule PO SCH (08:56)
[2018-04-25] MEDS: Senna/Docusate Sodium 8.6/50 MG Tablet PO SCH ×2 (08:57→22:08)
[2018-04-25] MEDS: Potassium Bicarbonate 25 MEQ Effervescent Tablet PO SCH ×2 (08:57→22:06)
[2018-04-25] MEDS: Sulfamethoxazole/Trimethoprim 400/80 MG Tablet NG/OG SCH ×2 (08:57→22:06)
--- NOTE | 2018-04-25 11:29 | P.PNNEU ---
Subjective Subjective Comments: No acute events Active Medications: Active Medications Acetaminophen (Tylenol) 650 mg PO Q6H PRN PRN Reason: FEVER >101F, PAIN Al Hydroxide/Mg Hydroxide (Milk Of Magnesia Liq) 30 ml PO Q12H PRN PRN Reason: Mild Constipation Albuterol (*Albuterol Neb Periprocedure Only) 2.5 mg NEB Q6HR NEB PRN PRN Reason: Shortness Of Breath Aspirin (Aspirin) 325 mg PO DAILY [facility] Atorvastatin Calcium (Lipitor) 40 mg PO DAILY [facility] Last Admin: 04/25/18 08:57 Dose: 40 mg Bisacodyl (Dulcolax Supp) 10 mg RECTAL DAILY PRN PRN Reason: SEVERE CONSITIPATION Dextrose (D50w Vial) 50 ml IV.PUSH UNSCH PRN PRN Reason: PER HYPOGLYCEMIA PROTOCOL Diltiazem HCl (Cardizem Cd 24hr) 240 mg PO DAILY [facility] Last Admin: 04/25/18 08:56 Dose: 240 mg Glucagon (Glucagon Inj) 1 mg OTHER UNSCH PRN PRN Reason: for Hypoglycemia Protocol Lactulose (Lactulose Liq) 30 ml PO DAILY PRN PRN Reason: SEVERE CONSITIPATION Lansoprazole (Prevacid Solutab) 30 mg PO DAILY [facility] Last Admin: 04/25/18 08:58 Dose: 30 mg Levetiracetam (Keppra Liq) 500 mg NG/OG BID [facility] Last Admin: 04/25/18 08:56 Dose: 500 mg Potassium Bicarbonate (Effer-K) 25 meq PO BID [facility] Stop: 04/27/18 20:59 Last Admin: 04/25/18 08:57 Dose: 25 meq Senna/Docusate Sodium (Shania-Colace) 1 tab PO BID [facility] Last Admin: 04/25/18 08:57 Dose: 1 tab Sennosides (Senokot) 17.2 mg PO Q12H PRN PRN Reason: Moderate Constipation Sodium Chloride (Ns Flush) 2 ml IV.FLUSH PRN PRN PRN Reason: FLUSH AFTER USING IV ACCESS Sodium Chloride (Ns Flush) 2 ml IV.FLUSH BID [facility] Last Admin: 04/25/18 08:58 Dose: 2 ml Sterile Water (Free Water) 0 ml G-TUBE Q6HR [facility] Last Admin: 04/25/18 06:38 Dose: 200 ml Trimethoprim/Sulfamethoxazole (Bactrim) 1 tab NG/OG Q12HR [facility] Stop: 04/26/18 20:59 Last Admin: 04/25/18 08:57 Dose: 1 tab Allergies/Adverse Reactions: Allergies Allergy/AdvReac Type Severity Reaction Status Date / Time No Known Allergies Allergy Verified 04/21/18 16:24 Review of Systems All other systems reviewed negative except as stated in HPI Physical Exam Vital signs: Vital Signs 04/24/18 12:00 04/24/18 16:00 04/24/18 17:58 Temperature 98.2 F 98.5 F 97.5 F L Pulse Rate 86 83 85 Respiratory Rate 21 9 L 12 Blood Pressure 133/58 L 135/60 Pulse Oximetry 100 97 97 04/24/18 18:06 04/24/18 20:00 04/25/18 00:00 Temperature 97.6 F 97.8 F Pulse Rate 86 89 102 H Respiratory Rate 18 18 Blood Pressure 121/74 139/76 Pulse Oximetry 98 98 04/25/18 04:00 04/25/18 08:00 Temperature 98.5 F 97.7 F Pulse Rate 93 H 93 H Respiratory Rate 18 18 Blood Pressure 126/59 L 130/63 Pulse Oximetry 97 98 Intake & Output 04/24/18 04/25/18 04/25/18 18:59 06:59 18:59 Intake Total 623 / 623 Output Total 515 / 515 850 / 850 Balance 108 / 108 -850 / -850 Weight 47.9 kg Intake: IV 400 / 400 1/2 Normal Saline Inj 1,000 ML 400 / 400 @ 75 mls/hr IV.CONT .[id number] [facility] Rx#:[id number] Tube Feeding 223 / 223 Output: Urine 850 / 850 Urine Amount (Catheter) 515 / 515 Indwelling Urethral Catheter 515 / 515 Other: Date of Last Bowel Movement 04/24/18 04/24/18 # Bowel Movements 2 Narrative: GENERAL: Thin female lying in bed SKIN: Warm and dry. No rash. Scattered ecchymoses and scabs noted. HEAD: Atraumatic. Normocephalic. EYES: Pupils equal and round. No scleral icterus. No injection or drainage. ENT: No nasal bleeding or discharge. Mucous membranes are dry NECK: Trachea midline. CARDIOVASCULAR: Regular rate and rhythm. No murmurs. RESPIRATORY: No accessory muscle use. Clear to auscultation, no rales or rhonchi. GASTROINTESTINAL: Abdomen soft, non-tender, nondistended. PEG tube in place clean and dry skin. MUSCULOSKELETAL: Extremities without clubbing, cyanosis, or edema. No obvious deformities. NEUROLOGICAL: Nonverbal right gaze preference no involuntary movements able to get her eyes to cross midline not following mild right gaze preference, not following commands. 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 PSYCHIATRIC: More calm - Constitutional no acute distress - Routine HEENT Exam Head: Present: normocephalic - Urinary Catheter Management Indwelling Urethral Catheter Cath placed during this visit: no Objective Laboratory Results - last 24 hr 04/25/18 04/25/18 06:09 06:09 WBC 11.2 H RBC 2.47 L Hgb 7.8 L Hct 22.8 L MCV 92.3 MCH 31.7 MCHC 34.4 RDW 14.0 Plt Count 345 MPV 7.1 Neut % (Auto) 81.3 H Lymph % (Auto) 11.9 Prentiss % (Auto) 5.3 Eos % (Auto) 1.0 Baso % (Auto) 0.5 Neut # (Auto) 9.1 H Lymph # (Auto) 1.3 Prentiss # (Auto) 0.6 Eos # (Auto) 0.1 Baso # (Auto) 0.1 WBC Differential . Differential Comment Auto diff final Sodium 148 H Potassium 4.1 Chloride 116 H Carbon Dioxide 23.7 Anion Gap 8 BUN 28 H Creatinine 1.02 H Estimated GFR 53 L Random Glucose 113 H Calcium 8.0 L Review/Management - Diagnosis (1) Acute right MCA stroke Code(s): I63.511 - Cerebral infarction due to unspecified occlusion or stenosis of right middle cerebral artery Status: Acute Current Visit: Yes (2) Encephalopathy acute Code(s): G93.40 - Encephalopathy, unspecified Status: Acute Current Visit: Yes (3) Chronic ischemic left MCA stroke Code(s): I69.30 - Unspecified sequelae of cerebral infarction Status: Acute Current Visit: Yes (4) Chronic ischemic right MCA stroke Code(s): I69.30 - Unspecified sequelae of cerebral infarction Status: Acute Current Visit: Yes (5) Chronic left arterial ischemic stroke, MCA (middle cerebral artery) Code(s): I69.30 - Unspecified sequelae of cerebral infarction Status: Acute Current Visit: Yes - Review/Management Plan: New right temporal lobe stroke with secondary agitated delirium Probable vascular dementia MRI brain demonstrates new moderate size right temporal lobe ischemic infarct. Failure on Eliquis. Recommendations Neuro stable Aspirin via PEG tube Reconsider Coumadin 10-14 days after repeat CAT scans performed to exclude any hemorrhagic transformation depending on clinical status Neuro prognosis poor. Palliative care following appreciate their assistance
[2018-04-25] MEDS: Acetaminophen 325 MG Tablet PO PRN (13:05)
[2018-04-25] MEDS: Aspirin 325 MG Tablet PO SCH (13:05)
--- NOTE | 2018-04-25 18:17 | US ---
EXAM DATE: 04/25/2018 6:10 PM EDT AGE/SEX: 72 years / Female INDICATIONS: Cerebrovascular accident. CLINICAL DATA: This is the patient's initial encounter. Patient reports that signs and symptoms have been present for 1 day and indicates a pain score of 0/10. MEDICAL/SURGICAL HISTORY: Stroke. Chronic renal failure. Dysphagia. Right sided cerebral infarc tion. . Stomach resection. Loop recorder. Peg tube. COMPARISON: No prior exams available for comparison. VELOCITY PARAMETERS: ICA/CCA Ratio: Right 0.9 , Left 1.2 ICA: Right 70.2 cm/sec, Left 70.8 cm/sec CCA: Right 82.0 cm/sec, Left 59.6 cm/sec ECA: Right 91.9 cm/sec, Left 89.5 cm/sec Vertebral: Right UTO cm/sec absent, Left 37.5 cm/sec antegrade FINDINGS: Right Carotid: No significant plaque is visualized.The waveforms are within normal limits. Left Carotid: No significant plaque is visualized. The waveforms are within normal limits. Other: None. CONCLUSION: 1. Right Internal Carotid Artery: No significant stenosis or atherosclerotic plaque is visualized. 2. Left Internal Carotid Artery: No significant stenosis or atherosclerotic plaque is visualized. 3. Antegrade flow in both vertebral arteries. Electronically signed by: Ej Villegas MD 04/25/2018 6:16 PM EDT
[2018-04-26 05:10] LABS: Baso # (Auto) 0.1 th/mm3 (0.0-0.2); Baso % (Auto) 0.5 % (0.0-2.0); Eos # (Auto) 0.2 th/mm3 (0.0-0.4); Eos % (Auto) 1.8 % (0.0-4.0); Hematocrit 26.6 % (35.0-46.0); Hemoglobin 8.8 gm/dL (11.6-15.3); Lymph # (Auto) 1.5 th/mm3 (1.0-4.8); Lymph % (Auto) 14.6 % (9.0-44.0); Mean Corpuscular Volume 93.9 fL (80.0-100.0); Mean Platelet Volume 7.1 fL (7.0-11.0); Mono # (Auto) 0.5 th/mm3 (0.0-0.9); Mono % (Auto) 5.3 % (0.0-8.0); Neut # (Auto) 7.7 th/mm3 (1.8-7.7); Neut % (Auto) 77.8 % (16.0-70.0); Platelet Count 405 th/mm3 (150-450); Red Blood Count 2.84 mil/mm3 (4.00-5.30); Red Cell Distribution Width 14.1 % (11.6-17.2)
[2018-04-26 06:27] LABS: Carbon Dioxide 25.3 meq/L (21.0-32.0); Potassium 5.5 meq/L (3.5-5.1)
[2018-04-26] MEDS: Potassium Bicarbonate 25 MEQ Effervescent Tablet PO SCH ×2 (08:31→08:38)
[2018-04-26] MEDS: Aspirin 325 MG Tablet PO SCH (08:32)
[2018-04-26] MEDS: Senna/Docusate Sodium 8.6/50 MG Tablet PO SCH ×2 (08:32→22:13)
[2018-04-26] MEDS: Sulfamethoxazole/Trimethoprim 400/80 MG Tablet NG/OG SCH (08:32)
[2018-04-26] MEDS: dilTIAZem CD 240 MG Capsule PO SCH (08:37)
--- NOTE | 2018-04-26 10:20 | P.PNFP ---
Subjective Interval history: Patient was seen and examined this morning. Clinically there have been no acute changes. She appears mildly agitated and is no cooperative with interview questions. She does appear to be in any pain. <DrewFaith L - 04/26/18 10:19> Results - Labs Result diagrams: 04/26/18 04:51 04/26/18 04:51 <CharleyErin - 04/26/18 15:23> Abnormal lab results 04/26/18 04/26/18 Range/Units 04:51 04:51 RBC 2.84 L (4.00-5.30) mil/mm3 Hgb 8.8 L (11.6-15.3) gm/dL Hct 26.6 L (35.0-46.0) % Neut % (Auto) 77.8 H (16.0-70.0) % Potassium 5.5 H D (3.5-5.1) meq/L Chloride 111 H (98-107) meq/L BUN 27 H (7-18) mg/dL Creatinine 1.22 H (0.50-1.00) mg/dL Estimated GFR 43 L (>89) mL/min Random Glucose 110 H (74-106) mg/dL Calcium 8.0 L (8.5-10.1) mg/dL Short CBC 04/26/18 Range/Units 04:51 WBC 10.0 (4.0-11.0) th/mm3 Hgb 8.8 L (11.6-15.3) gm/dL Hct 26.6 L (35.0-46.0) % Plt Count 405 (150-450) th/mm3 [facility] 04/26/18 04:51 Sodium 144 Potassium 5.5 H D Chloride 111 H Carbon Dioxide 25.3 BUN 27 H Creatinine 1.22 H Calcium 8.0 L <CharleyRaErin M - 04/26/18 15:23> Abnormal lab results 04/26/18 04/26/18 Range/Units 04:51 04:51 RBC 2.84 L (4.00-5.30) mil/mm3 Hgb 8.8 L (11.6-15.3) gm/dL Hct 26.6 L (35.0-46.0) % Neut % (Auto) 77.8 H (16.0-70.0) % Potassium 5.5 H D (3.5-5.1) meq/L Chloride 111 H (98-107) meq/L BUN 27 H (7-18) mg/dL Creatinine 1.22 H (0.50-1.00) mg/dL Estimated GFR 43 L (>89) mL/min Random Glucose 110 H (74-106) mg/dL Calcium 8.0 L (8.5-10.1) mg/dL Short CBC 04/26/18 Range/Units 04:51 WBC 10.0 (4.0-11.0) th/mm3 Hgb 8.8 L (11.6-15.3) gm/dL Hct 26.6 L (35.0-46.0) % Plt Count 405 (150-450) th/mm3 BMP 04/26/18 04:51 Sodium 144 Potassium 5.5 H D Chloride 111 H Carbon Dioxide 25.3 BUN 27 H Creatinine 1.22 H Calcium 8.0 L <Faith Russell - 04/26/18 10:19> - Imaging Impressions Carotid Doppler Study 04/25/18 16:36 CONCLUSION: 1. Right Internal Carotid Artery: No significant stenosis or atherosclerotic plaque is visualized. 2. Left Internal Carotid Artery: No significant stenosis or atherosclerotic plaque is visualized. 3. Antegrade flow in both vertebral arteries. <Erin Whitehead - 04/26/18 15:23> Impressions Carotid Doppler Study 04/25/18 16:36 CONCLUSION: 1. Right Internal Carotid Artery: No significant stenosis or atherosclerotic plaque is visualized. 2. Left Internal Carotid Artery: No significant stenosis or atherosclerotic plaque is visualized. 3. Antegrade flow in both vertebral arteries. <Faith Russell - 04/26/18 10:19> Physical Exam Vital signs: Vital Signs 04/25/18 16:00 04/25/18 21:00 04/26/18 00:15 Temperature 98.7 F 97.8 F 98.7 F Pulse Rate 96 H 86 80 Respiratory Rate 18 20 21 Blood Pressure 137/79 170/89 H 167/87 H Pulse Oximetry 98 99 99 04/26/18 06:50 04/26/18 08:20 04/26/18 10:43 Temperature 98.2 F Pulse Rate 112 H 79 Respiratory Rate 21 18 Blood Pressure 160/88 H Pulse Oximetry 96 04/26/18 12:55 Temperature Pulse Rate 93 H Respiratory Rate Blood Pressure Pulse Oximetry Intake & Output 04/25/18 04/26/18 04/26/18 18:59 06:59 18:59 Intake Total 0 / 0 Output Total 500 / 500 1700 / 1700 Balance -500 / -500 -1700 / -1700 Weight 48 kg Intake: Oral 0 / 0 Output: Urine Amount (Catheter) 500 / 500 1700 / 1700 Indwelling Urethral Catheter 500 / 500 1700 / 1700 Other: Date of Last Bowel Movement 04/25/18 # Bowel Movements 1 # Incontinent Bowel Movements 2 4 <Erin Whitehead M - 04/26/18 15:23> Vital Signs 04/25/18 12:00 04/25/18 16:00 04/25/18 21:00 Temperature 99.0 F 98.7 F 97.8 F Pulse Rate 87 96 H 86 Respiratory Rate 18 18 20 Blood Pressure 130/62 137/79 170/89 H Pulse Oximetry 98 98 99 04/26/18 00:15 04/26/18 06:50 04/26/18 08:20 Temperature 98.7 F 98.2 F Pulse Rate 80 112 H Respiratory Rate 21 21 18 Blood Pressure 167/87 H 160/88 H Pulse Oximetry 99 96 Intake & Output 04/25/18 04/26/18 04/26/18 18:59 06:59 18:59 Intake Total 0 / 0 Output Total 500 / 500 1700 / 1700 Balance -500 / -500 -1700 / -1700 Weight 48 kg Intake: Oral 0 / 0 Output: Urine Amount (Catheter) 500 / 500 1700 / 1700 Indwelling Urethral Catheter 500 / 500 1700 / 1700 Other: Date of Last Bowel Movement 04/25/18 # Incontinent Bowel Movements 2 4 <Faith Russell - 04/26/18 10:19> Narrative: GENERAL: Thin female lying in bed with legs over rails. SKIN: Warm and dry. No rash. Scattered ecchymoses and scabs noted with occlusive dressings in place. HEAD: Atraumatic. Normocephalic. EYES: Pupils equal and round. No scleral icterus. No injection or drainage. ENT: No nasal bleeding or discharge. Mucous membranes are dry but improved from last exam. NECK: Trachea midline. CARDIOVASCULAR: Regular rate and rhythm. No murmurs. RESPIRATORY: No accessory muscle use. Clear to auscultation, no rales or rhonchi. GASTROINTESTINAL: Abdomen soft, non-tender, nondistended. PEG tube in place clean and dry skin. MUSCULOSKELETAL: Extremities without clubbing, cyanosis, or edema. No obvious deformities. NEUROLOGICAL: Patient is making incoherent noises, not responsive to questions and not following commands but alert and awake. She favors her right side with gaze and toward right. Nonverbal right gaze preference. 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 PSYCHIATRIC: Agitated but able to calm her with repositioning. Not obviously responding to internal stimulus. <Faith Russell - 04/26/18 10:19> - Urinary Catheter Management Indwelling Urethral Catheter Cath placed during this visit: no <CharleyErin figueroa Kaleb - 04/26/18 15:23> no <Faith Russell - 04/26/18 10:49> Reason for continuing: Terminally ill/Comfort care <Faith Russell - 10:19> Assessment and Plan - Assessment (1) Acute ischemic stroke Code(s): I63.9 - Cerebral infarction, unspecified Status: Acute Onset Date: 04/21/18 (2) Urinary tract infection Code(s): N39.0 - Urinary tract infection, site not specified Status: Acute (3) Anemia Code(s): D64.9 - Anemia, unspecified Status: Acute (4) Nutrition, metabolism, and development symptoms Code(s): R63.8 - Other symptoms and signs concerning food and fluid intake Status: Acute <Erin Whitehead Kaleb - 04/26/18 15:23> (1) Acute ischemic stroke Code(s): I63.9 - Cerebral infarction, unspecified Status: Acute Onset Date: 04/21/18 Plan: Patient with recurrent acute ischemic strokes per MRI 04/23 Neurology following: ASA 325 mg daily, discontinued Eliquis 04/24. Per their note will plan to repeat CT scan in 10-14 days to hemorrhagic transformation, then potentially reconsider Coumadin. On Keppra per PEG. Hospital Course: Patient presented 04/21 with acute mental status changes and focal weakness with recent history of strokes. She was on Eliquis at that time. CT head: did not have acute findings to suggest bleed or infection. EEG: mild to moderate encephalopathy MRI: new area of acute infarction involving the right temporal posterior parietal lobe and new area of subacute infarction involving the left posterior parietal lobe, but no definite acute intracranial hemorrhage is seen. Echo: difficult study without adequate imaging to assess chamber or valve function. poor acoustic imaging Carotid US: unremarkable IV Celebrex started 04/21, switched to IV then PO Keppra PT/OT evaluation: rehab Speech: nothing by mouth. tube feeds. Continue to monitor clinically. Palliative Care consult per neuro; family still wants aggressive care. Continue Mcgee for now. (2) Urinary tract infection Code(s): N39.0 - Urinary tract infection, site not specified Status: Acute Plan: Urinalysis concerning for UTI on admission Urine culture E coli ESB Rocephin 1g daily (04/22-04/23) switched to Bactrim one tablet BID for 3 days, stop date 04/26 (3) Anemia Code(s): D64.9 - Anemia, unspecified Status: Acute Plan: Anemia noted. Normocytic. Workup may reveal definitely the etiology but likely related to poor nutritional state and low iron intake. Will continue to monitor her H&H and monitor clinically. Consider iron studies as outpatient. (4) Nutrition, metabolism, and development symptoms Code(s): R63.8 - Other symptoms and signs concerning food and fluid intake Status: Acute Plan: Diet: Jevity 1.5 at 45 mL/hr with 200 mL water q 6 hrs. Validation Manager consulted, appreciate these recommendations. G-tube replaced by interventional radiology on 04/24 due to occlusion. Fluids: 200 ml free water q 6hr. Will DVT: SCDs Electrolytes: replete as needed. K lite 25mEq BID 04/24-04/25 due to mild hypoK. HyperK 04/26 at 5.5, will stop K lite <Faith Russell - 04/26/18 10:20> - Assessment and Plan 72 year old female PMH multiple previous strokes, right-sided weakness and contractures, left-sided weakness, kidney stones presents with altered mental status. Not tPA candidate and on eliquis at home. Initial CT no acute bleeding. Stroke workup including MRI, Carotid studies, echo. MRI showing recurrent strokes. Chronic findings include generalized atrophy and moderate severity chronic white matter changes. Chest x-ray limited but negative for acute processes. Head CTA No intracranial vascular abnormality is identified. Neck CTA no evidence of carotid stenosis. Neurology consulted and following, adjusting medications as indicated. Currently Eliquis d/c'd and on aspirin. Plan is for recheck of heading imagining in 10-14 days to assess for hemorrhagic changes and possibly restarted anticoagulation if clinically warranted. Palliative care consulted and following. Validation Manager consulted and following. Patient chronically with PEG tube and on Jevity. <Faith Russell 04/26/18 10:49> Discussed Condition With: Seen and discussed with Dr. Whitehead, attending; Dr. Ivana Fernando, PGY1; Dr. Naun Myrick, PGY2 <Faith Russell - 04/26/18 10:49> Discharge Planning: Unclear disposition, palliative care consulted, neurology consulted. She is critically ill at this time and patient has a chronically deteriorating condition based on presentation, will follow. Full code per who is Healthcare surrogate. <Faith Russell 04/26/18 10:49> - Attending Attestation The exam, history, and the medical decision-making described in the above note were completed with the assistance of the resident physician. I reviewed and agree with the findings presented. I attest that I had a [id number] encounter with the patient on the same day, and personally performed and documented my assessment and findings in the medical record. We will have discussions with her starting tomorrow he was not present by the bedside today. If he really wishes her only to go home we can attempt to figure out what would best support that situation. <Erin Whitehead - 04/26/18 15:23> Progress Note: Quality - Stroke Contraindication Not Initiating IV-Tpa: Contraindicated <Faith Russell 10:19> Onset of Symptoms Date: 04/21/18 <Faith Russell 04/26/18 10:19> Onset of Symptoms Time: 12:30 <Faith Russell - 04/26/18 10:19> Contraindication Antithromb by Day Two: Contraindicated <Faith Russell 10:19> <Faith Russell L - Last Filed: 04/26/18 10:20> (2) Urinary tract infection Qualifiers: Urinary tract infection type: acute pyelonephritis Qualified Code(s): N10 - Acute pyelonephritis <Erin Whitehead M - Last Filed: 04/26/18 15:23> (2) Urinary tract infection Qualifiers: Urinary tract infection type: acute pyelonephritis Qualified Code(s): N10 - Acute pyelonephritis <Faith Russell - Last Filed: 04/26/18 10:20> (2) Urinary tract infection Qualifiers: Urinary tract infection type: acute pyelonephritis Qualified Code(s): N10 - Acute pyelonephritis <Erin Whitehead - Last Filed: 04/26/18 15:23> (2) Urinary tract infection Qualifiers: Urinary tract infection type: acute pyelonephritis Qualified Code(s): N10 - Acute pyelonephritis
--- NOTE | 2018-04-26 12:03 | P.PNNEU ---
Subjective Subjective Comments: No acute events Active Medications: Active Medications Acetaminophen (Tylenol) 650 mg PO Q6H PRN PRN Reason: FEVER >101F, PAIN Last Admin: 04/25/18 13:05 Dose: 650 mg Al Hydroxide/Mg Hydroxide (Milk Of Magnesia Liq) 30 ml PO Q12H PRN PRN Reason: Mild Constipation Albuterol (*Albuterol Neb Periprocedure Only) 2.5 mg NEB Q6HR NEB PRN PRN Reason: Shortness Of Breath Aspirin (Aspirin) 325 mg PO DAILY [facility] Last Admin: 04/26/18 08:32 Dose: 325 mg Atorvastatin Calcium (Lipitor) 40 mg PO DAILY [facility] Last Admin: 04/26/18 08:32 Dose: 40 mg Bisacodyl (Dulcolax Supp) 10 mg RECTAL DAILY PRN PRN Reason: SEVERE CONSITIPATION Dextrose (D50w Vial) 50 ml IV.PUSH UNSCH PRN PRN Reason: PER HYPOGLYCEMIA PROTOCOL Diltiazem HCl (Cardizem Cd 24hr) 240 mg PO DAILY [facility] Last Admin: 04/26/18 08:37 Dose: 240 mg Glucagon (Glucagon Inj) 1 mg OTHER UNSCH PRN PRN Reason: for Hypoglycemia Protocol Lactulose (Lactulose Liq) 30 ml PO DAILY PRN PRN Reason: SEVERE CONSITIPATION Lansoprazole (Prevacid Solutab) 30 mg PO DAILY [facility] Last Admin: 04/26/18 08:33 Dose: 30 mg Levetiracetam (Keppra Liq) 500 mg NG/OG BID [facility] Last Admin: 04/26/18 08:32 Dose: 500 mg Potassium Bicarbonate (Effer-K) 25 meq PO BID [facility] Stop: 04/27/18 20:59 Last Admin: 04/26/18 08:38 Dose: Not Given Senna/Docusate Sodium (Shania-Colace) 1 tab PO BID [facility] Last Admin: 04/26/18 08:32 Dose: 1 tab Sennosides (Senokot) 17.2 mg PO Q12H PRN PRN Reason: Moderate Constipation Sodium Chloride (Ns Flush) 2 ml IV.FLUSH PRN PRN PRN Reason: FLUSH AFTER USING IV ACCESS Sodium Chloride (Ns Flush) 2 ml IV.FLUSH BID [facility] Last Admin: 04/26/18 08:33 Dose: 2 ml Sterile Water (Free Water) 0 ml G-TUBE Q6HR [facility] Last Admin: 04/26/18 06:03 Dose: 200 ml Trimethoprim/Sulfamethoxazole (Bactrim) 1 tab NG/OG Q12HR [facility] Stop: 04/26/18 20:59 Last Admin: 04/26/18 08:32 Dose: 1 tab Allergies/Adverse Reactions: Allergies Allergy/AdvReac Type Severity Reaction Status Date / Time No Known Allergies Allergy Verified 04/21/18 16:24 Physical Exam Vital signs: Vital Signs 04/25/18 16:00 04/25/18 21:00 04/26/18 00:15 Temperature 98.7 F 97.8 F 98.7 F Pulse Rate 96 H 86 80 Respiratory Rate 18 20 21 Blood Pressure 137/79 170/89 H 167/87 H Pulse Oximetry 98 99 99 04/26/18 06:50 04/26/18 08:20 04/26/18 10:43 Temperature 98.2 F Pulse Rate 112 H 79 Respiratory Rate 21 18 Blood Pressure 160/88 H Pulse Oximetry 96 Intake & Output 04/25/18 04/26/18 04/26/18 18:59 06:59 18:59 Intake Total 0 / 0 Output Total 500 / 500 1700 / 1700 Balance -500 / -500 -1700 / -1700 Weight 48 kg Intake: Oral 0 / 0 Output: Urine Amount (Catheter) 500 / 500 1700 / 1700 Indwelling Urethral Catheter 500 / 500 1700 / 1700 Other: Date of Last Bowel Movement 04/25/18 # Incontinent Bowel Movements 2 4 - Urinary Catheter Management Indwelling Urethral Catheter Cath placed during this visit: no Reason for continuing: Terminally ill/Comfort care Objective Laboratory Results - last 24 hr 04/26/18 04/26/18 04:51 04:51 WBC 10.0 RBC 2.84 L Hgb 8.8 L Hct 26.6 L MCV 93.9 MCH 31.0 MCHC 33.0 RDW 14.1 Plt Count 405 MPV 7.1 Neut % (Auto) 77.8 H Lymph % (Auto) 14.6 [place] % (Auto) 5.3 Eos % (Auto) 1.8 Baso % (Auto) 0.5 Neut # (Auto) 7.7 Lymph # (Auto) 1.5 [place] # (Auto) 0.5 Eos # (Auto) 0.2 Baso # (Auto) 0.1 WBC Differential . Differential Comment Auto diff final Sodium 144 Potassium 5.5 H D Chloride 111 H Carbon Dioxide 25.3 Anion Gap 8 BUN 27 H Creatinine 1.22 H Estimated GFR 43 L Random Glucose 110 H Calcium 8.0 L Review/Management - Diagnosis (1) Acute right MCA stroke Code(s): I63.511 - Cerebral infarction due to unspecified occlusion or stenosis of right middle cerebral artery Status: Acute Current Visit: Yes (2) Encephalopathy acute Code(s): G93.40 - Encephalopathy, unspecified Status: Acute Current Visit: Yes (3) Chronic ischemic left MCA stroke Code(s): I69.30 - Unspecified sequelae of cerebral infarction Status: Acute Current Visit: Yes (4) Chronic ischemic right MCA stroke Code(s): I69.30 - Unspecified sequelae of cerebral infarction Status: Acute Current Visit: Yes (5) Chronic left arterial ischemic stroke, MCA (middle cerebral artery) Code(s): I69.30 - Unspecified sequelae of cerebral infarction Status: Acute Current Visit: Yes - Review/Management Plan: New right temporal lobe stroke with secondary agitated delirium Probable vascular dementia MRI brain demonstrates new moderate size right temporal lobe ischemic infarct. Failure on Eliquis. Recommendations Neuro stable Plan for snf if hospice declined by spouse Neuro prognosis poor. Recurrent strokes with worsening neurologic function bedbound requiring assistance with all ADLs. Palliative care following appreciate their assistance Aspirin via PEG tube Reconsider Coumadin 10-14 days after repeat CAT scans performed to exclude any hemorrhagic transformation depending on clinical status
[2018-04-27 06:02] LABS: Baso # (Auto) 0.1 th/mm3 (0.0-0.2); Baso % (Auto) 0.8 % (0.0-2.0); Eos # (Auto) 0.2 th/mm3 (0.0-0.4); Eos % (Auto) 2.4 % (0.0-4.0); Hematocrit 26.8 % (35.0-46.0); Hemoglobin 8.9 gm/dL (11.6-15.3); Lymph # (Auto) 1.5 th/mm3 (1.0-4.8); Lymph % (Auto) 19.1 % (9.0-44.0); Mean Corpuscular HGB Conc 33.1 % (32.0-36.0); Mean Corpuscular Hemoglobin 31.3 pg (27.0-34.0); Mean Corpuscular Volume 94.5 fL (80.0-100.0); Mean Platelet Volume 7.4 fL (7.0-11.0); Mono # (Auto) 0.5 th/mm3 (0.0-0.9); Mono % (Auto) 6.4 % (0.0-8.0); Neut # (Auto) 5.8 th/mm3 (1.8-7.7); Neut % (Auto) 71.3 % (16.0-70.0); Platelet Count 412 th/mm3 (150-450); Red Blood Count 2.83 mil/mm3 (4.00-5.30); Red Cell Distribution Width 14.2 % (11.6-17.2); White Blood Count 8.1 th/mm3 (4.0-11.0)
[2018-04-27 06:55] LABS: Albumin 2.1 g/dL (3.4-5.0); Anion Gap 12 meq/L (5-15); Aspartate Aminotransferase 16 U/L (15-37); Blood Urea Nitrogen 27 mg/dL (7-18); Calcium 8.2 mg/dL (8.5-10.1); Carbon Dioxide 24.4 meq/L (21.0-32.0); Chloride 106 meq/L (98-107); Glomerular Filtration Rate 47 mL/min (>89); Glucose,Random 94 mg/dL (74-106); Magnesium 2.2 mg/dL (1.5-2.5); Potassium 4.5 meq/L (3.5-5.1); Sodium 142 meq/L (136-145)
[2018-04-27 07:00] LABS: Alanine Aminotransferase 16 U/L (10-53); Alkaline Phosphatase 144 U/L (45-117); Phosphorus 2.4 mg/dL (2.5-4.9); Total Protein 6.9 g/dL (6.4-8.2)
[2018-04-27] MEDS: dilTIAZem CD 240 MG Capsule PO SCH (08:14)
[2018-04-27] MEDS: Senna/Docusate Sodium 8.6/50 MG Tablet PO SCH ×2 (08:15→22:08)
[2018-04-27] MEDS: Aspirin 325 MG Tablet PO SCH (08:15)
--- NOTE | 2018-04-27 08:44 | P.PNNEU ---
Subjective Subjective Comments: No acute events Active Medications: Active Medications Acetaminophen (Tylenol) 650 mg PO Q6H PRN PRN Reason: FEVER >101F, PAIN Last Admin: 04/25/18 13:05 Dose: 650 mg Al Hydroxide/Mg Hydroxide (Milk Of Magnesia Liq) 30 ml PO Q12H PRN PRN Reason: Mild Constipation Albuterol (*Albuterol Neb Periprocedure Only) 2.5 mg NEB Q6HR NEB PRN PRN Reason: Shortness Of Breath Aspirin (Aspirin) 325 mg PO DAILY [facility] Last Admin: 04/27/18 08:15 Dose: 325 mg Atorvastatin Calcium (Lipitor) 40 mg PO DAILY [facility] Last Admin: 04/27/18 08:14 Dose: 40 mg Bisacodyl (Dulcolax Supp) 10 mg RECTAL DAILY PRN PRN Reason: SEVERE CONSITIPATION Dextrose (D50w Vial) 50 ml IV.PUSH UNSCH PRN PRN Reason: PER HYPOGLYCEMIA PROTOCOL Diltiazem HCl (Cardizem Cd 24hr) 240 mg PO DAILY [facility] Last Admin: 04/27/18 08:14 Dose: 240 mg Glucagon (Glucagon Inj) 1 mg OTHER UNSCH PRN PRN Reason: for Hypoglycemia Protocol Lactulose (Lactulose Liq) 30 ml PO DAILY PRN PRN Reason: SEVERE CONSITIPATION Lansoprazole (Prevacid Solutab) 30 mg PO DAILY [facility] Last Admin: 04/27/18 08:15 Dose: 30 mg Levetiracetam (Keppra Liq) 500 mg NG/OG BID [facility] Last Admin: 04/27/18 08:14 Dose: 500 mg Potassium Bicarbonate (Effer-K) 25 meq PO BID [facility] Stop: 04/27/18 20:59 Last Admin: 04/26/18 08:38 Dose: Not Given Senna/Docusate Sodium (Shania-Colace) 1 tab PO BID [facility] Last Admin: 04/27/18 08:15 Dose: Not Given Sennosides (Senokot) 17.2 mg PO Q12H PRN PRN Reason: Moderate Constipation Sodium Chloride (Ns Flush) 2 ml IV.FLUSH PRN PRN PRN Reason: FLUSH AFTER USING IV ACCESS Sodium Chloride (Ns Flush) 2 ml IV.FLUSH BID [facility] Last Admin: 04/27/18 08:15 Dose: 2 ml Sterile Water (Free Water) 0 ml G-TUBE Q6HR [facility] Last Admin: 04/27/18 05:01 Dose: 200 ml Allergies/Adverse Reactions: Allergies Allergy/AdvReac Type Severity Reaction Status Date / Time No Known Allergies Allergy Verified 04/21/18 16:24 Review of Systems All other systems reviewed negative except as stated in HPI Physical Exam Vital signs: Vital Signs 04/26/18 10:43 04/26/18 12:00 04/26/18 12:55 Temperature 97.8 F Pulse Rate 79 89 93 H Respiratory Rate 18 Blood Pressure 132/74 Pulse Oximetry 97 04/26/18 16:00 04/26/18 20:15 04/27/18 00:00 Temperature 97.6 F 98 F 97.7 F Pulse Rate 85 84 80 Respiratory Rate 18 19 20 Blood Pressure 133/70 115/80 120/88 Pulse Oximetry 95 100 99 04/27/18 04:00 Temperature 98 F Pulse Rate 68 Respiratory Rate 21 Blood Pressure 122/80 Pulse Oximetry 99 Intake & Output 04/26/18 04/27/18 04/27/18 18:59 06:59 18:59 Intake Total 1240 / 1240 Output Total 800 / 800 1300 / 1300 Balance -800 / -800 -60 / -60 Weight 48 kg Intake: Oral 0 / 0 Tube Feeding 720 / 720 Tube Irrigant 120 / 120 Water Bolus Amount 400 / 400 Output: Urine 800 / 800 Urine Amount (Catheter) 1300 / 1300 Indwelling Urethral Catheter 1300 / 1300 Other: Date of Last Bowel Movement 04/25/18 # Bowel Movements 1 0 # Incontinent Bowel Movements 1 Narrative: GENERAL: Thin female lying in bed SKIN: Warm and dry. HEAD: Atraumatic. Normocephalic. EYES: Pupils equal and round. No scleral icterus. No injection or drainage. ENT: No nasal bleeding or discharge. Mucous membranes are dry NECK: Trachea midline. CARDIOVASCULAR: Regular rate and rhythm. RESPIRATORY: No accessory muscle use. Clear to auscultation, no rales or rhonchi. GASTROINTESTINAL: Abdomen soft, non-tender, nondistended. PEG tube in place MUSCULOSKELETAL: Extremities without clubbing, cyanosis, or edema. No obvious deformities. NEUROLOGICAL: Alert, mute, not following, nonverbal right gaze preference no involuntary movements able to get her eyes to cross midline not following mild right gaze preference, not following commands. 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 PSYCHIATRIC: calm - Constitutional no acute distress - Routine HEENT Exam Head: Present: normocephalic - Urinary Catheter Management Indwelling Urethral Catheter Cath placed during this visit: no Reason for continuing: Terminally ill/Comfort care Objective Laboratory Results - last 24 hr 04/26/18 04/27/18 04/27/18 17:45 03:32 03:32 WBC 8.1 RBC 2.83 L Hgb 8.9 L Hct 26.8 L MCV 94.5 MCH 31.3 MCHC 33.1 RDW 14.2 Plt Count 412 MPV 7.4 Neut % (Auto) 71.3 H Lymph % (Auto) 19.1 [place] % (Auto) 6.4 Eos % (Auto) 2.4 Baso % (Auto) 0.8 Neut # (Auto) 5.8 Lymph # (Auto) 1.5 [place] # (Auto) 0.5 Eos # (Auto) 0.2 Baso # (Auto) 0.1 WBC Differential . Differential Comment Auto diff final Sodium 142 Potassium 4.7 D 4.5 Chloride 106 Carbon Dioxide 24.4 Anion Gap 12 BUN 27 H Creatinine 1.13 H Estimated GFR 47 L Random Glucose 94 Calcium 8.2 L Phosphorus 2.4 L Magnesium 2.2 Total Bilirubin 0.2 AST 16 ALT 16 Alkaline Phosphatase 144 H Total Protein 6.9 Albumin 2.1 L Review/Management - Diagnosis (1) Acute right MCA stroke Code(s): I63.511 - Cerebral infarction due to unspecified occlusion or stenosis of right middle cerebral artery Status: Acute Current Visit: Yes (2) Encephalopathy acute Code(s): G93.40 - Encephalopathy, unspecified Status: Acute Current Visit: Yes (3) Chronic ischemic left MCA stroke Code(s): I69.30 - Unspecified sequelae of cerebral infarction Status: Acute Current Visit: Yes (4) Chronic ischemic right MCA stroke Code(s): I69.30 - Unspecified sequelae of cerebral infarction Status: Acute Current Visit: Yes (5) Chronic left arterial ischemic stroke, MCA (middle cerebral artery) Code(s): I69.30 - Unspecified sequelae of cerebral infarction Status: Acute Current Visit: Yes - Review/Management Plan: New right temporal lobe stroke with secondary agitated delirium Probable vascular dementia MRI brain demonstrates new moderate size right temporal lobe ischemic infarct. Failure on Eliquis. Recommendations Neuro stable Plan for snf if hospice declined by spouse Neuro prognosis poor. Recurrent strokes with worsening neurologic function bedbound requiring assistance with all ADLs. Palliative care following appreciate their assistance Aspirin via PEG tube Reconsider Coumadin 10-14 days after repeat CAT scans performed to exclude any hemorrhagic transformation depending on clinical status
--- NOTE | 2018-04-27 09:34 | P.PNFP ---
Subjective Interval history: No acute events overnight. Today patient responded with her name when prompted. Otherwise she cannot answer questions appropriately. <Raphael Myrick - 04/27/18 09:34> Results - Labs Result diagrams: 04/27/18 03:32 04/27/18 03:32 <Erin Whitehead - 04/27/18 12:23> Abnormal lab results 04/27/18 04/27/18 Range/Units 03:32 03:32 RBC 2.83 L (4.00-5.30) mil/mm3 Hgb 8.9 L (11.6-15.3) gm/dL Hct 26.8 L (35.0-46.0) % Neut % (Auto) 71.3 H (16.0-70.0) % BUN 27 H (7-18) mg/dL Creatinine 1.13 H (0.50-1.00) mg/dL Estimated GFR 47 L (>89) mL/min Calcium 8.2 L (8.5-10.1) mg/dL Phosphorus 2.4 L (2.5-4.9) mg/dL Alkaline Phosphatase 144 H (45-117) U/L Albumin 2.1 L (3.4-5.0) g/dL Short CBC 04/27/18 Range/Units 03:32 WBC 8.1 (4.0-11.0) th/mm3 Hgb 8.9 L (11.6-15.3) gm/dL Hct 26.8 L (35.0-46.0) % Plt Count 412 (150-450) th/mm3 BMP 04/26/18 04/27/18 17:45 03:32 Sodium 142 Potassium 4.7 D 4.5 Chloride 106 Carbon Dioxide 24.4 BUN 27 H Creatinine 1.13 H Calcium 8.2 L Liver Function 04/27/18 Range/Units 03:32 Total Bilirubin 0.2 (0.2-1.0) mg/dL AST 16 (15-37) U/L ALT 16 (10-53) U/L Alkaline Phosphatase 144 H (45-117) U/L Albumin 2.1 L (3.4-5.0) g/dL <Erin Wihtehead - 04/27/18 12:23> Abnormal lab results 04/27/18 04/27/18 Range/Units 03:32 03:32 RBC 2.83 L (4.00-5.30) mil/mm3 Hgb 8.9 L (11.6-15.3) gm/dL Hct 26.8 L (35.0-46.0) % Neut % (Auto) 71.3 H (16.0-70.0) % BUN 27 H (7-18) mg/dL Creatinine 1.13 H (0.50-1.00) mg/dL Estimated GFR 47 L (>89) mL/min Calcium 8.2 L (8.5-10.1) mg/dL Phosphorus 2.4 L (2.5-4.9) mg/dL Alkaline Phosphatase 144 H (45-117) U/L Albumin 2.1 L (3.4-5.0) g/dL Short CBC 04/27/18 Range/Units 03:32 WBC 8.1 (4.0-11.0) th/mm3 Hgb 8.9 L (11.6-15.3) gm/dL Hct 26.8 L (35.0-46.0) % Plt Count 412 (150-450) th/mm3 BMP 04/26/18 04/27/18 17:45 03:32 Sodium 142 Potassium 4.7 D 4.5 Chloride 106 Carbon Dioxide 24.4 BUN 27 H Creatinine 1.13 H Calcium 8.2 L Liver Function 04/27/18 Range/Units 03:32 Total Bilirubin 0.2 (0.2-1.0) mg/dL AST 16 (15-37) U/L ALT 16 (10-53) U/L Alkaline Phosphatase 144 H (45-117) U/L Albumin 2.1 L (3.4-5.0) g/dL <Raphael Myrick - 04/27/18 09:34> Physical Exam Vital signs: Vital Signs 04/26/18 12:55 04/26/18 16:00 04/26/18 20:15 Temperature 97.6 F 98 F Pulse Rate 93 H 85 84 Respiratory Rate 18 19 Blood Pressure 133/70 115/80 Pulse Oximetry 95 100 04/27/18 00:00 04/27/18 04:00 04/27/18 08:00 Temperature 97.7 F 98 F 97.3 F L Pulse Rate 80 68 88 Respiratory Rate 20 21 20 Blood Pressure 120/88 122/80 99/57 L Pulse Oximetry 99 99 99 Intake & Output 04/26/18 04/27/18 04/27/18 18:59 06:59 18:59 Intake Total 1240 / 1240 Output Total 800 / 800 1300 / 1300 Balance -800 / -800 -60 / -60 Weight 48 kg Intake: Oral 0 / 0 Tube Feeding 720 / 720 Tube Irrigant 120 / 120 Water Bolus Amount 400 / 400 Output: Urine 800 / 800 Urine Amount (Catheter) 1300 / 1300 Indwelling Urethral Catheter 1300 / 1300 Other: Date of Last Bowel Movement 04/25/18 # Bowel Movements 1 0 # Incontinent Bowel Movements 1 <Erin Whitehead - 04/27/18 12:23> Vital Signs 04/26/18 10:43 04/26/18 12:00 04/26/18 12:55 Temperature 97.8 F Pulse Rate 79 89 93 H Respiratory Rate 18 Blood Pressure 132/74 Pulse Oximetry 97 04/26/18 16:00 04/26/18 20:15 04/27/18 00:00 Temperature 97.6 F 98 F 97.7 F Pulse Rate 85 84 80 Respiratory Rate 18 19 20 Blood Pressure 133/70 115/80 120/88 Pulse Oximetry 95 100 99 04/27/18 04:00 Temperature 98 F Pulse Rate 68 Respiratory Rate 21 Blood Pressure 122/80 Pulse Oximetry 99 Intake & Output 04/26/18 04/27/18 04/27/18 18:59 06:59 18:59 Intake Total 1240 / 1240 Output Total 800 / 800 1300 / 1300 Balance -800 / -800 -60 / -60 Weight 48 kg Intake: Oral 0 / 0 Tube Feeding 720 / 720 Tube Irrigant 120 / 120 Water Bolus Amount 400 / 400 Output: Urine 800 / 800 Urine Amount (Catheter) 1300 / 1300 Indwelling Urethral Catheter 1300 / 1300 Other: Date of Last Bowel Movement 04/25/18 # Bowel Movements 1 0 # Incontinent Bowel Movements 1 <Raphael Myrick - 04/27/18 09:34> Narrative: GENERAL: Thin female lying in bed, occasionally stating "help" SKIN: Warm and dry. HEAD: Atraumatic. Normocephalic. EYES: Pupils equal and round. No scleral icterus. No injection or drainage. ENT: No nasal bleeding or discharge. Mucous membranes are dry NECK: Trachea midline. CARDIOVASCULAR: Regular rate and rhythm. RESPIRATORY: No accessory muscle use. Clear to auscultation, no rales or rhonchi. GASTROINTESTINAL: Abdomen soft, non-tender, nondistended. PEG tube in place MUSCULOSKELETAL: Extremities without clubbing, cyanosis, or edema. No obvious deformities. NEUROLOGICAL: Alert, mute, not following, nonverbal right gaze preference no involuntary movements able to get her eyes to cross midline not following mild right gaze preference, not following commands. 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 PSYCHIATRIC: calm <Raphael Myrick - 04/27/18 09:34> - Urinary Catheter Management Indwelling Urethral Catheter Cath placed during this visit: no <Erin Whitehead - 04/27/18 12:23> no <Raphael Myrick 04/27/18 09:34> Reason for continuing: Terminally ill/Comfort care <Raphael Myrick 09:34> Assessment and Plan - Assessment (1) Acute ischemic stroke Code(s): I63.9 - Cerebral infarction, unspecified Status: Acute Onset Date: 04/21/18 (2) Urinary tract infection Code(s): N39.0 - Urinary tract infection, site not specified Status: Acute (3) Anemia Code(s): D64.9 - Anemia, unspecified Status: Acute (4) Nutrition, metabolism, and development symptoms Code(s): R63.8 - Other symptoms and signs concerning food and fluid intake Status: Acute <Erin Whitehead - 04/27/18 12:23> (1) Acute ischemic stroke Code(s): I63.9 - Cerebral infarction, unspecified Status: Acute Onset Date: 04/21/18 Plan: Patient with recurrent acute ischemic strokes per MRI 04/23 Neurology following: ASA 325 mg daily, discontinued Eliquis 04/24. Per their note will plan to repeat CT scan in 10-14 days to hemorrhagic transformation, then potentially reconsider Coumadin. On Keppra per PEG. Hospital Course: Patient presented 04/21 with acute mental status changes and focal weakness with recent history of strokes. She was on Eliquis at that time. CT head: did not have acute findings to suggest bleed or infection. EEG: mild to moderate encephalopathy MRI: new area of acute infarction involving the right temporal posterior parietal lobe and new area of subacute infarction involving the left posterior parietal lobe, but no definite acute intracranial hemorrhage is seen. Echo: difficult study without adequate imaging to assess chamber or valve function. poor acoustic imaging Carotid US: unremarkable IV Celebrex started 04/21, switched to IV then PO Keppra PT/OT evaluation: rehab Speech: nothing by mouth. tube feeds. Continue to monitor clinically. Palliative Care consult per neuro; family still wants aggressive care. Continue Mcgee for now. Per case management, family is requesting patient to be transferred to [facility]. Will attempt to contact family today. (2) Urinary tract infection Code(s): N39.0 - Urinary tract infection, site not specified Status: Acute Plan: Urinalysis concerning for UTI on admission Urine culture E coli ESB Rocephin 1g daily (04/22-04/23) switched to Bactrim one tablet BID for 3 days, completed therapy on 04/26 (3) Anemia Code(s): D64.9 - Anemia, unspecified Status: Acute Plan: Anemia noted. Normocytic. Workup may reveal definitely the etiology but likely related to poor nutritional state and low iron intake. Will continue to monitor her H&H and monitor clinically. Currently stable. Consider iron studies as outpatient. (4) Nutrition, metabolism, and development symptoms Code(s): R63.8 - Other symptoms and signs concerning food and fluid intake Status: Acute Plan: Diet: Jevity 1.5 at 45 mL/hr with 200 mL water q 6 hrs. Vinyl Cutter consulted, appreciate these recommendations. G-tube replaced by interventional radiology on 04/24 due to occlusion. Fluids: 200 ml free water q 6hr. Will DVT: SCDs Electrolytes: replete as needed. K lite 25mEq BID 04/24-04/25 due to mild hypoK. HyperK 04/26 at 5.5, stopped k lite at that time and potassium has normalized <Raphael Myrick - 04/27/18 09:29> - Assessment and Plan 72 year old female PMH multiple previous strokes, right-sided weakness and contractures, left-sided weakness, kidney stones presents with altered mental status. Not tPA candidate and on eliquis at home. Initial CT no acute bleeding. Stroke workup including MRI, Carotid studies, echo. MRI showing recurrent strokes. Chronic findings include generalized atrophy and moderate severity chronic white matter changes. Chest x-ray limited but negative for acute processes. Head CTA No intracranial vascular abnormality is identified. Neck CTA no evidence of carotid stenosis. Neurology consulted and following, adjusting medications as indicated. Currently Eliquis d/c'd and on aspirin. Plan is for recheck of heading imagining in 10-14 days to assess for hemorrhagic changes and possibly restarted anticoagulation if clinically warranted. Palliative care consulted and following. Family currently requesting to be transferred to [facility] in [place]. Vinyl Cutter consulted and following. Patient chronically with PEG tube and on Jevity. <Raphael Myrick - 04/27/18 09:34> - Attending Attestation The exam, history, and the medical decision-making described in the above note were completed with the assistance of the resident physician. I reviewed and agree with the findings presented. I attest that I had a [id number] encounter with the patient on the same day, and personally performed and documented my assessment and findings in the medical record. saw in notes that her family was requesting [facility]. Unfortunately, they don't accept transfers unless you are their established pt or if services such as Neurology are not provided at a hospital. For the vast majority of people they recommend keeping the patient in their current hospital and then after discharge they would be able to see her. Called her daughter Rae Kat [phone] but was only able to leave a message. No one answered at the home phone [phone]. If her wants her to go home with him, then she can be made ready medically. If [facility] is seeing her, they can watch for problems and take action. She could also get an appointment with [facility] as an outpt. or if she worsens, they could decide to take her there <Erin Whitehead - 04/27/18 12:23> Progress Note: Quality - Stroke Contraindication Not Initiating IV-Tpa: Contraindicated <Raphael Myrick - 09:34> Onset of Symptoms Date: 04/21/18 <Raphael Myrick - 04/27/18 09:34> Onset of Symptoms Time: 12:30 <Raphael Myrick - 04/27/18 09:34> Contraindication Antithromb by Day Two: Contraindicated <Raphael Myrick - 09:34> <Raphael Myrick - Last Filed: 04/27/18 09:29> (2) Urinary tract infection Qualifiers: Urinary tract infection type: acute pyelonephritis Qualified Code(s): N10 - Acute pyelonephritis <Erin Whitehead - Last Filed: 04/27/18 12:23> (2) Urinary tract infection Qualifiers: Urinary tract infection type: acute pyelonephritis Qualified Code(s): N10 - Acute pyelonephritis <Raphael Myrick - Last Filed: 04/27/18 09:29> (2) Urinary tract infection Qualifiers: Urinary tract infection type: acute pyelonephritis Qualified Code(s): N10 - Acute pyelonephritis <Erin Whitehead - Last Filed: 04/27/18 12:23> (2) Urinary tract infection Qualifiers: Urinary tract infection type: acute pyelonephritis Qualified Code(s): N10 - Acute pyelonephritis
--- NOTE | 2018-04-27 17:12 | P.PNPAL ---
Reason for Visit Reason for visit: a. To assist with evaluation and management of symptoms including: Altered mental status, agitation b. To assist medical decision maker(s) with: better understanding of current medical conditions; weighing benefits/burdens of medical treatment options; making medical treatment decisions. Subjective Subjective/Interval History: Patient seen today to follow-up on symptom management of altered mental status, agitation and assist in goals of medical treatment. Patient is seen to be awake today with eyes open. Not focusing or tracking. She does not respond to commands. She frequently calls out "help". She occasionally will repeat her name but not effectively communicating. She is still mildly agitated, twisting herself sideways in the bed, appears frightened. She is unable to make her needs known. She is unable to quantify or qualify her symptoms. . Family/Friend Interactions: There is no family at bedside today. Calls have been placed to patient's , Keegan Mills, who is the medical decision maker by [facility], on both home and cell phones with messages left. Call has also been placed to her daughter Rae Muniz and message left. Discussed with case fitter who states that family wants patient to go to [facility] for an evaluation. Per that discussion, case fitter states they are considering signing patient out AMA and driving her to [place] as they were not accepting the transfer. Case management states she had also tried to contact the and daughter, left messages and the is not returning her call. Pending contact with the family for further decision-making. . Objective Vital Signs: Vital Signs 04/26/18 20:15 04/27/18 00:00 04/27/18 04:00 Temperature 98 F 97.7 F 98 F Pulse Rate 84 80 68 Respiratory Rate 19 20 21 Blood Pressure 115/80 120/88 122/80 Pulse Oximetry 100 99 99 04/27/18 08:00 04/27/18 12:00 Temperature 97.3 F L 97.8 F Pulse Rate 88 91 H Respiratory Rate 20 18 Blood Pressure 99/57 L 99/58 L Pulse Oximetry 99 96 Intake & Output 04/26/18 04/27/18 04/27/18 18:59 06:59 18:59 Intake Total 1240 / 1240 Output Total 800 / 800 1300 / 1300 Balance -800 / -800 -60 / -60 Weight 105 lb 13.15 oz Intake: Oral 0 / 0 Tube Feeding 720 / 720 Tube Irrigant 120 / 120 Water Bolus Amount 400 / 400 Output: Urine 800 / 800 Urine Amount (Catheter) 1300 / 1300 Indwelling Urethral Catheter 1300 / 1300 Other: Date of Last Bowel Movement 04/25/18 # Bowel Movements 1 0 # Incontinent Bowel Movements 1 Physical Exam: CONSTITUTIONAL/GENERAL: This is a thin, elderly female, lying in bed, in mild distress. TUBES/LINES/DRAINS: PIV, Mcgee SKIN: Improving jaundice, multiple ecchymosis scattered over the entire skin, erythema, skin breakdown on buttocks, multiple scabs and skin tears on upper arms and hands. Warm, dry. HEAD: Atraumatic. Normocephalic. EYES: Pupils equal and round and reactive. No scleral icterus. No injection or drainage. Fundi not examined. Not focusing or tracking. ENT: Nose without bleeding or purulent drainage. Oral mucosa dry. NECK: Trachea midline. Supple, nontender. No palpable thyroid enlargement or nodularity. CARDIOVASCULAR: Regular rate and rhythm without murmurs, gallops, or rubs. No JVD. Peripheral pulses symmetric. RESPIRATORY/CHEST: Symmetric, unlabored respirations. Clear, diminished to auscultation. Breath sounds equal bilaterally. No wheezes, rales, or rhonchi. GASTROINTESTINAL: Abdomen soft, nondistended. No hepato-splenomegaly, or palpable masses. No guarding. Bowel sounds present. GENITOURINARY: Without palpable bladder distension. Mcgee catheter in place. MUSCULOSKELETAL: Extremities without clubbing, cyanosis, or edema. No mottling or clubbing. LYMPHATICS: No palpable cervical or supraclavicular adenopathy. NEUROLOGICAL: Awake, moving spontaneously but not to command. Chronic dysphasia , worsened by acute stroke. Does not appear oriented PSYCHIATRIC: Mild agitation. . Diagnostic Tests Laboratory: Laboratory Results - last 72 hr 04/25/18 04/25/18 04/26/18 06:09 06:09 04:51 WBC 11.2 H 10.0 RBC 2.47 L 2.84 L Hgb 7.8 L 8.8 L Hct 22.8 L 26.6 L MCV 92.3 93.9 MCH 31.7 31.0 MCHC 34.4 33.0 RDW 14.0 14.1 Plt Count 345 405 MPV 7.1 7.1 Neut % (Auto) 81.3 H 77.8 H Lymph % (Auto) 11.9 14.6 [place] % (Auto) 5.3 5.3 Eos % (Auto) 1.0 1.8 Baso % (Auto) 0.5 0.5 Neut # (Auto) 9.1 H 7.7 Lymph # (Auto) 1.3 1.5 [place] # (Auto) 0.6 0.5 Eos # (Auto) 0.1 0.2 Baso # (Auto) 0.1 0.1 WBC Differential . . Differential Comment Auto diff final Auto diff final Sodium 148 H Potassium 4.1 Chloride 116 H Carbon Dioxide 23.7 Anion Gap 8 BUN 28 H Creatinine 1.02 H Estimated GFR 53 L Random Glucose 113 H Calcium 8.0 L Phosphorus Magnesium Total Bilirubin AST ALT Alkaline Phosphatase Total Protein Albumin 04/26/18 04/26/18 04/27/18 04:51 17:45 03:32 WBC 8.1 RBC 2.83 L Hgb 8.9 L Hct 26.8 L MCV 94.5 MCH 31.3 MCHC 33.1 RDW 14.2 Plt Count 412 MPV 7.4 Neut % (Auto) 71.3 H Lymph % (Auto) 19.1 [place] % (Auto) 6.4 Eos % (Auto) 2.4 Baso % (Auto) 0.8 Neut # (Auto) 5.8 Lymph # (Auto) 1.5 [place] # (Auto) 0.5 Eos # (Auto) 0.2 Baso # (Auto) 0.1 WBC Differential . Differential Comment Auto diff final Sodium 144 Potassium 5.5 H D 4.7 D Chloride 111 H Carbon Dioxide 25.3 Anion Gap 8 BUN 27 H Creatinine 1.22 H Estimated GFR 43 L Random Glucose 110 H Calcium 8.0 L Phosphorus Magnesium Total Bilirubin AST ALT Alkaline Phosphatase Total Protein Albumin 04/27/18 03:32 WBC RBC Hgb Hct MCV MCH MCHC RDW Plt Count MPV Neut % (Auto) Lymph % (Auto) [place] % (Auto) Eos % (Auto) Baso % (Auto) Neut # (Auto) Lymph # (Auto) [place] # (Auto) Eos # (Auto) Baso # (Auto) WBC Differential Differential Comment Sodium 142 Potassium 4.5 Chloride 106 Carbon Dioxide 24.4 Anion Gap 12 BUN 27 H Creatinine 1.13 H Estimated GFR 47 L Random Glucose 94 Calcium 8.2 L Phosphorus 2.4 L Magnesium 2.2 Total Bilirubin 0.2 AST 16 ALT 16 Alkaline Phosphatase 144 H Total Protein 6.9 Albumin 2.1 L Result Diagrams: 04/27/18 03:32 04/27/18 03:32 Assessment and Plan Pertinent Non-Medical Issues: Psychosocial: She was born in [place] and moved to [place] in 1977 with her second . She had 1 daughter, Rae, by her first . 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 She had previously liked bicycling and loved her 2 dogs. Spiritual: Director Of Institutional Giving available. Legal: No advanced directive paperwork completed. Ethical issues impacting care: None noted. . Important Contacts: Daughter: Rae Muniz : Keegan Mills , . Prognosis: Her prognosis is very poor. She has sustained multiple strokes of unknown etiology, and has a bedbound existence. 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 She currently has a PEG tube and is receiving tube feeding, which has significantly worsened her diarrhea from intermittent episodes to constant, chronic requiring cee-care every 30-60 minutes around-the -clock resulting in skin impairment and breakdown. In addition to her baseline right hemiplegia, left weakness, dysphasia, dysarthria she has now become somnolent and not interacting with staff or family. She is clearly declining and would be hospice appropriate consistent. If the decision-maker expresses aggressive goals, she is at significant risk for continued complications, readmissions and decline. . Code Status: Full Code Plan: PLAN: Legal decision maker: The patient is not capacitated at this time for decision-making and it is uncertain whether she will ever regain capacity. [place] statutes her , Keegan Mills would be the legal proxy decision maker. Goals: Aggressive at this time. CODE STATUS: FULL CODE SYMPTOMS: * Altered mental status: She was previously alert and interactive with the family, per the daughter. She is currently agitated, anxious, not responding to command. Appears unable to see people standing next to the bed. She is not focusing or tracking. She was previously unable to see her daughter standing at the bedside. Unable to determine visual deficit due to altered mental status , unable to communicate needs. * Agitation: Some thrashing in bed seen, patient appears frightened. Would recommend considering Seroquel. Palliative care will continue to follow the patient during hospital course as condition evolves, to assist patient/decision-maker with understanding of their medical conditions, weighing benefits/burdens of treatment options, for clarification of goals of treatment. Additionally will assist with any symptoms of palliative concern. . Attestation Attestation: To help prompt me to consider important information that might be impacting today's encounter and assessment, information from prior notes written by myself or my colleagues may have been "brought forward" into today's note. My signature on this note, however, is an attestation that I personally performed the exam, history, and/or decision-making noted today, and, unless otherwise indicated, the interactions with patient, family, and staff as well as the review of records all occurred today. I also attest that the listed assessment and stated plan reflect my best clinical judgment today based on the combination of historical information, prior notes, and today's exam/ interactions. When time spent is documented, it refers only to time spent today by the signer, or if indicated, combined time spent today by collaborating physician/nurse practitioner. .
[2018-04-28] MEDS: dilTIAZem CD 240 MG Capsule PO SCH (08:10)
[2018-04-28] MEDS: Aspirin 325 MG Tablet PO SCH (08:10)
[2018-04-28] MEDS: Senna/Docusate Sodium 8.6/50 MG Tablet PO SCH ×2 (08:11→20:40)
--- NOTE | 2018-04-28 10:30 | P.DCO ---
- Home Health Nursing Order: Medical education, Signs/symptoms of disease process, Wound care and dressing changes, Nursing assessment with vital signs, Mcgee catheter maintenance - Home Health Aide Order: To assist in: Bathing and personal care - Certification I have seen patient Erin Diaz on 04/28/18. My clinical findings support the need for the requested home health care services because: Limited mobility due to disease progression, Deconditioned with increased weakness, Limited ability to care for self, Need for psychosocial assistance, Impaired cognition/judgement, High risk of falls I certify that my clinical findings support that this patient is homebound because: Impaired cognitive ability/safety, Unsafe to leave home unassisted, Need for psychosocial assistance, Non-ambulatory: confined to bed or chair, Unable to use public transportation
--- NOTE | 2018-04-28 10:47 | P.PNFP ---
Subjective Interval history: No acute events overnight with no change in status. Patient's daughter was contacted by Dr. Whitehead and the family is desiring to bring the patient home with home health. He is to be hemodynamically stable and labs are grossly within normal limits. <Raphael Myrick B - 04/28/18 10:47> Results - Labs Result diagrams: 04/29/18 06:58 04/29/18 06:58 <Erin Whitehead - 04/29/18 17:14> Abnormal lab results 04/29/18 04/29/18 Range/Units 06:58 06:58 RBC 3.14 L (4.00-5.30) mil/mm3 Hgb 9.7 L (11.6-15.3) gm/dL Hct 29.0 L (35.0-46.0) % Plt Count 464 H (150-450) th/mm3 BUN 30 H (7-18) mg/dL Creatinine 1.01 H (0.50-1.00) mg/dL Estimated GFR 54 L (>89) mL/min Random Glucose 108 H (74-106) mg/dL Calcium 7.8 L (8.5-10.1) mg/dL Short CBC 04/29/18 Range/Units 06:58 WBC 7.7 (4.0-11.0) th/mm3 Hgb 9.7 L (11.6-15.3) gm/dL Hct 29.0 L (35.0-46.0) % Plt Count 464 H (150-450) th/mm3 BMP 04/29/18 06:58 Sodium 138 Potassium 4.3 Chloride 104 Carbon Dioxide 25.0 BUN 30 H Creatinine 1.01 H Calcium 7.8 L <Erin Whitehead M - 04/29/18 17:14> Physical Exam Vital signs: Vital Signs 04/28/18 20:00 04/28/18 20:48 04/29/18 00:00 Temperature 97.3 F L 97.5 F L Pulse Rate 85 87 Respiratory Rate 16 18 16 Blood Pressure 121/78 106/54 L Pulse Oximetry 85 L 99 04/29/18 04:00 04/29/18 08:00 04/29/18 09:50 Temperature 98 F 97.3 F L Pulse Rate 92 H 100 H 97 H Respiratory Rate 16 20 Blood Pressure 104/74 132/64 Pulse Oximetry 99 98 04/29/18 12:00 04/29/18 13:22 Temperature 97.3 F L Pulse Rate 83 93 H Respiratory Rate 19 Blood Pressure 124/82 Pulse Oximetry 98 Intake & Output 04/28/18 04/29/18 04/29/18 18:59 06:59 18:59 Intake Total 1150 / 1150 922 / 922 Output Total 600 / 600 700 / 700 Balance 550 / 550 222 / 222 Weight 48 kg Intake: Oral 0 / 0 Tube Feeding 660 / 660 522 / 522 Tube Irrigant 90 / 90 Water Bolus Amount 400 / 400 400 / 400 Output: Urine Amount (Catheter) 600 / 600 700 / 700 Indwelling Urethral Catheter 600 / 600 700 / 700 Other: Date of Last Bowel Movement 04/25/18 04/29/18 04/29/18 # Bowel Movements 4 2 # Incontinent Bowel Movements 4 1 <CharleyErin M - 04/29/18 17:14> Vital Signs 04/27/18 12:00 04/27/18 16:00 04/27/18 20:00 Temperature 97.8 F 98.3 F 97.3 F L Pulse Rate 91 H 84 79 Respiratory Rate 18 20 20 Blood Pressure 99/58 L 96/62 L 116/68 Pulse Oximetry 96 98 95 04/28/18 00:00 04/28/18 03:09 04/28/18 04:00 Temperature 97.7 F 97.4 F L Pulse Rate 79 81 Respiratory Rate 20 18 18 Blood Pressure 108/63 125/74 Pulse Oximetry 96 96 04/28/18 07:05 04/28/18 08:39 Temperature 97.7 F Pulse Rate 101 H Respiratory Rate 18 18 Blood Pressure 135/84 Pulse Oximetry 99 Intake & Output 04/27/18 04/28/18 04/28/18 18:59 06:59 18:59 Intake Total 1150 / 1150 400 / 400 Output Total 850 / 850 500 / 500 Balance 300 / 300 -100 / -100 Weight 48.4 kg Intake: Tube Feeding 660 / 660 Tube Irrigant 90 / 90 Water Bolus Amount 400 / 400 400 / 400 Output: Urine 500 / 500 Urine Amount (Catheter) 850 / 850 Indwelling Urethral Catheter 850 / 850 Other: Date of Last Bowel Movement 04/25/18 04/28/18 04/25/18 # Bowel Movements 2 # Incontinent Bowel Movements 2 2 <Raphael Myrick - 04/28/18 10:47> Narrative: GENERAL: Thin female lying in bed, resting comfortably in no acute distress SKIN: Warm and dry. HEAD: Atraumatic. Normocephalic. EYES: Pupils equal and round. No scleral icterus. No injection or drainage. ENT: No nasal bleeding or discharge. Mucous membranes are dry NECK: Trachea midline. CARDIOVASCULAR: Regular rate and rhythm. RESPIRATORY: No accessory muscle use. Clear to auscultation, no rales or rhonchi. GASTROINTESTINAL: Abdomen soft, non-tender, nondistended. PEG tube in place MUSCULOSKELETAL: Extremities without clubbing, cyanosis, or edema. No obvious deformities. NEUROLOGICAL: Alert, mute, not following, nonverbal right gaze preference no involuntary movements able to get her eyes to cross midline not following mild right gaze preference, not following commands. 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 PSYCHIATRIC: calm <Raphael Myrick - 04/28/18 10:47> - Urinary Catheter Management Indwelling Urethral Catheter Cath placed during this visit: no <Erin Whitehead - 04/29/18 17:14> no <Raphael Myrick - 04/28/18 10:47> Reason for continuing: Terminally ill/Comfort care <Raphael Myrick - 10:47> Assessment and Plan - Assessment (1) Acute ischemic stroke Code(s): I63.9 - Cerebral infarction, unspecified Status: Acute Onset Date: 04/21/18 (2) Altered mental state Code(s): R41.82 - Altered mental status, unspecified Status: Acute (3) Urinary tract infection Code(s): N39.0 - Urinary tract infection, site not specified Status: Acute (4) Anemia Code(s): D64.9 - Anemia, unspecified Status: Acute (5) Nutrition, metabolism, and development symptoms Code(s): R63.8 - Other symptoms and signs concerning food and fluid intake Status: Acute <Erin Whitehead - 04/29/18 17:14> (1) Acute ischemic stroke Code(s): I63.9 - Cerebral infarction, unspecified Status: Acute Onset Date: 04/21/18 Plan: Patient with recurrent acute ischemic strokes per MRI 04/23 Neurology following: ASA 325 mg daily, discontinued Eliquis 04/24. Per their note will plan to repeat CT scan in 10-14 days to hemorrhagic transformation, then potentially reconsider Coumadin. On Keppra per PEG. Hospital Course: Patient presented 04/21 with acute mental status changes and focal weakness with recent history of strokes. She was on Eliquis at that time. CT head: did not have acute findings to suggest bleed or infection. EEG: mild to moderate encephalopathy MRI: new area of acute infarction involving the right temporal posterior parietal lobe and new area of subacute infarction involving the left posterior parietal lobe, but no definite acute intracranial hemorrhage is seen. Echo: difficult study without adequate imaging to assess chamber or valve function. poor acoustic imaging Carotid US: unremarkable IV Celebrex started 04/21, switched to IV then PO Keppra PT/OT evaluation: rehab Speech: nothing by mouth. tube feeds. Continue to monitor clinically. Palliative Care consult per neuro; family still wants aggressive care. Continue Mcgee for now. Patient's daughter contacted on 04/28 and family expressing desire for home with home health. Will work with case management to help arrange this (2) Altered mental state Code(s): R41.82 - Altered mental status, unspecified Status: Acute Plan: Likely secondary to acute stroke, UTI also likely contributing See acute stroke workup as above (3) Urinary tract infection Code(s): N39.0 - Urinary tract infection, site not specified Status: Acute Plan: Urinalysis concerning for UTI on admission Urine culture E coli ESB Rocephin 1g daily (04/22-04/23) switched to Bactrim one tablet BID for 3 days, completed therapy on 04/26 (4) Anemia Code(s): D64.9 - Anemia, unspecified Status: Acute Plan: Anemia noted. Normocytic. Workup may reveal definitely the etiology but likely related to poor nutritional state and low iron intake. Will continue to monitor her H&H and monitor clinically. Currently stable. Consider iron studies as outpatient. (5) Nutrition, metabolism, and development symptoms Code(s): R63.8 - Other symptoms and signs concerning food and fluid intake Status: Acute Plan: Diet: Jevity 1.5 at 45 mL/hr with 200 mL water q 6 hrs. Cut Off Machine Operator consulted, appreciate these recommendations. G-tube replaced by interventional radiology on 04/24 due to occlusion. Fluids: 200 ml free water q 6hr. DVT: SCDs Electrolytes: replete as needed. K lite 25mEq BID 04/24-04/25 due to mild hypoK. HyperK 04/26 at 5.5, stopped k lite at that time and potassium has normalized <Raphael Myrick Dylon - 04/28/18 10:37> - Assessment and Plan 72 year old female PMH multiple previous strokes, right-sided weakness and contractures, left-sided weakness, kidney stones presents with altered mental status. Not tPA candidate and on eliquis at home. Initial CT no acute bleeding. Stroke workup including MRI, Carotid studies, echo. MRI showing recurrent strokes. Chronic findings include generalized atrophy and moderate severity chronic white matter changes. Chest x-ray limited but negative for acute processes. Head CTA No intracranial vascular abnormality is identified. Neck CTA no evidence of carotid stenosis. Neurology consulted and following, adjusting medications as indicated. Currently Eliquis d/c'd and on aspirin. Plan is for recheck of heading imagining in 10-14 days to assess for hemorrhagic changes and possibly restarted anticoagulation if clinically warranted. Palliative care consulted and following. Family requesting home with home health care Cut Off Machine Operator consulted and following. Patient chronically with PEG tube and on Jevity. <Raphael Myrick - 04/28/18 10:47> - Attending Attestation The exam, history, and the medical decision-making described in the above note were completed with the assistance of the resident physician. I reviewed and agree with the findings presented. I attest that I had a [id number] encounter with the patient on the same day, and personally performed and documented my assessment and findings in the medical record. I spoke to her daughter and discussed her mother's condition and answered her questions. The definite wishes of the family both her daughter and her are that Ms. Diaz goes home. They do not want a rehab place as evidently there was a bad experience in the past with that. They do want home health care who can go out and evaluate the situation at home. I also discussed with Ms. Sam daughter that she wanted a second opinion from [facility] about her mother's strokes and I encouraged her to do so. [facility] makes it relatively easy to get appointments up there. they have clinics. they have a hospital. if there are any services that can be done to help this lady that would be great. <Erin Whitehead - 04/29/18 17:14> Progress Note: Quality - Stroke Contraindication Not Initiating IV-Tpa: Contraindicated <Raphael Myrick - 10:47> Onset of Symptoms Date: 04/21/18 <Raphael Myrick - 04/28/18 10:47> Onset of Symptoms Time: 12:30 <Raphael Myrick - 04/28/18 10:47> Contraindication Antithromb by Day Two: Contraindicated <Raphael Myrick - 10:47> <Raphael Myrick - Last Filed: 04/28/18 10:37> (3) Urinary tract infection Qualifiers: Urinary tract infection type: acute pyelonephritis Qualified Code(s): N10 - Acute pyelonephritis <Erin Whitehead - Last Filed: 04/29/18 17:14> (3) Urinary tract infection Qualifiers: Urinary tract infection type: acute pyelonephritis Qualified Code(s): N10 - Acute pyelonephritis <Raphael Myrick Last Filed: 04/28/18 10:37> (3) Urinary tract infection Qualifiers: Urinary tract infection type: acute pyelonephritis Qualified Code(s): N10 - Acute pyelonephritis <Erin Whitehead - Last Filed: 04/29/18 17:14> (3) Urinary tract infection Qualifiers: Urinary tract infection type: acute pyelonephritis Qualified Code(s): N10 - Acute pyelonephritis
--- NOTE | 2018-04-28 15:30 | P.DIET ---
Nutritional Evaluation Type of nutrition evaluation: follow-up Nutrition consult regarding: Tube Feeding Subjective Subjective Comments: Pt has a PEG and uses Jevity 1.5 at home. Objective - Diagnosis Stroke Alert, Elev Troponin - Objective % IBW: 106 (IBW = 100#) Body Weight Used for Calculations: Actual (48 kg) Energy Needs - Lower Range (kCal/kg): 28 Energy Needs - Upper Range (kCal/kg): 32 Lower Limit kCal/kg (kCals): 1,347 Upper Limit kCal/kg (kCals): 1,539 Lower Limit Protein Factor (Grams per Kg): 1.0 Upper Limit Protein Factor (Grams per Kg): 1.5 Lower Protein Needs (Protein): 48 Upper Protein Needs (Protein): 72 Dietitian Reviewed in Medical Record: Curent medications, Intake & Output, Labs , Medical history, Tube feeding Diet Order: NPO Assessment Assessment: Pt remains at high nutrition risk 2' to her dependence on PEG feeding to meet nutritional needs. Current order is for Jevity 1.5 @ 60 mls/hr goal rate. Recommend goal rate of 45 mls/hr to provide 1620 kcals, 69 gms protein and 821 mls of free water. Pt will need an additional 200 mls water flush q 6 hours to meet fluid needs. Labs, wts and clinical course reviewed. Recommendations: Jevity 1.5 @ 45 mls/hr goal Dietitian to Monitor: Lab values, Intake & Output, Tube feeding tolerance, Weight change, Medical course
[2018-04-29 07:42] LABS: Baso # (Auto) 0.1 th/mm3 (0.0-0.2); Baso % (Auto) 1.2 % (0.0-2.0); Eos # (Auto) 0.1 th/mm3 (0.0-0.4); Eos % (Auto) 1.9 % (0.0-4.0); Hemoglobin 9.7 gm/dL (11.6-15.3); Lymph # (Auto) 1.6 th/mm3 (1.0-4.8); Lymph % (Auto) 20.4 % (9.0-44.0); Mean Corpuscular HGB Conc 33.6 % (32.0-36.0); Mean Corpuscular Hemoglobin 30.9 pg (27.0-34.0); Mean Corpuscular Volume 92.1 fL (80.0-100.0); Mean Platelet Volume 7.2 fL (7.0-11.0); Mono # (Auto) 0.6 th/mm3 (0.0-0.9); Mono % (Auto) 7.4 % (0.0-8.0); Neut # (Auto) 5.3 th/mm3 (1.8-7.7); Neut % (Auto) 69.1 % (16.0-70.0); Platelet Count 464 th/mm3 (150-450); Red Blood Count 3.14 mil/mm3 (4.00-5.30); Red Cell Distribution Width 14.1 % (11.6-17.2); White Blood Count 7.7 th/mm3 (4.0-11.0)
[2018-04-29 08:09] LABS: Calcium 7.8 mg/dL (8.5-10.1); Potassium 4.3 meq/L (3.5-5.1)
[2018-04-29] MEDS: dilTIAZem CD 240 MG Capsule PO SCH (08:20)
[2018-04-29] MEDS: Senna/Docusate Sodium 8.6/50 MG Tablet PO SCH ×2 (08:20→21:21)
[2018-04-29] MEDS: Aspirin 325 MG Tablet PO SCH (08:20)
--- NOTE | 2018-04-29 09:37 | P.PNFP ---
Subjective Interval history: No acute events overnight with no change in status. Patient sleeping comfortable in bed. Patient's daughter expressed family is desiring to bring the patient home with home health once returns from out of town today. She is hemodynamically stable and labs are grossly within normal limits. <Ivana Fernando - 04/29/18 09:37> Results - Labs Result diagrams: 04/29/18 06:58 04/29/18 06:58 <Erin Whitehead - 04/29/18 17:27> Abnormal lab results 04/29/18 04/29/18 Range/Units 06:58 06:58 RBC 3.14 L (4.00-5.30) mil/mm3 Hgb 9.7 L (11.6-15.3) gm/dL Hct 29.0 L (35.0-46.0) % Plt Count 464 H (150-450) th/mm3 BUN 30 H (7-18) mg/dL Creatinine 1.01 H (0.50-1.00) mg/dL Estimated GFR 54 L (>89) mL/min Random Glucose 108 H (74-106) mg/dL Calcium 7.8 L (8.5-10.1) mg/dL Short CBC 04/29/18 Range/Units 06:58 WBC 7.7 (4.0-11.0) th/mm3 Hgb 9.7 L (11.6-15.3) gm/dL Hct 29.0 L (35.0-46.0) % Plt Count 464 H (150-450) th/mm3 BMP 04/29/18 06:58 Sodium 138 Potassium 4.3 Chloride 104 Carbon Dioxide 25.0 BUN 30 H Creatinine 1.01 H Calcium 7.8 L <Erin Whitehead - 04/29/18 17:27> Abnormal lab results 04/29/18 04/29/18 Range/Units 06:58 06:58 RBC 3.14 L (4.00-5.30) mil/mm3 Hgb 9.7 L (11.6-15.3) gm/dL Hct 29.0 L (35.0-46.0) % Plt Count 464 H (150-450) th/mm3 BUN 30 H (7-18) mg/dL Creatinine 1.01 H (0.50-1.00) mg/dL Estimated GFR 54 L (>89) mL/min Random Glucose 108 H (74-106) mg/dL Calcium 7.8 L (8.5-10.1) mg/dL Short CBC 04/29/18 Range/Units 06:58 WBC 7.7 (4.0-11.0) th/mm3 Hgb 9.7 L (11.6-15.3) gm/dL Hct 29.0 L (35.0-46.0) % Plt Count 464 H (150-450) th/mm3 BMP 04/29/18 06:58 Sodium 138 Potassium 4.3 Chloride 104 Carbon Dioxide 25.0 BUN 30 H Creatinine 1.01 H Calcium 7.8 L <Ivana Fernando - 04/29/18 09:37> Physical Exam Vital signs: Vital Signs 04/28/18 16:00 04/28/18 20:00 04/28/18 20:48 Temperature 98.3 F 97.3 F L Pulse Rate 89 85 Respiratory Rate 16 16 18 Blood Pressure 122/74 121/78 Pulse Oximetry 99 85 L 04/29/18 00:00 04/29/18 04:00 04/29/18 08:00 Temperature 97.5 F L 98 F 97.3 F L Pulse Rate 87 92 H 100 H Respiratory Rate 16 16 20 Blood Pressure 106/54 L 104/74 132/64 Pulse Oximetry 99 99 98 04/29/18 09:50 04/29/18 12:00 04/29/18 13:22 Temperature 97.3 F L Pulse Rate 97 H 83 93 H Respiratory Rate 19 Blood Pressure 124/82 Pulse Oximetry 98 Intake & Output 04/28/18 04/29/18 04/29/18 18:59 06:59 18:59 Intake Total 1150 / 1150 922 / 922 Output Total 600 / 600 700 / 700 Balance 550 / 550 222 / 222 Weight 48 kg Intake: Oral 0 / 0 Tube Feeding 660 / 660 522 / 522 Tube Irrigant 90 / 90 Water Bolus Amount 400 / 400 400 / 400 Output: Urine Amount (Catheter) 600 / 600 700 / 700 Indwelling Urethral Catheter 600 / 600 700 / 700 Other: Date of Last Bowel Movement 04/25/18 04/29/18 04/29/18 # Bowel Movements 4 2 # Incontinent Bowel Movements 4 1 <Erin Whitehead - 04/29/18 17:27> Vital Signs 04/28/18 12:00 04/28/18 16:00 04/28/18 20:00 Temperature 98.3 F 98.3 F 97.3 F L Pulse Rate 89 89 85 Respiratory Rate 16 16 16 Blood Pressure 98/54 L 122/74 121/78 Pulse Oximetry 98 99 85 L 04/28/18 20:48 04/29/18 00:00 04/29/18 04:00 Temperature 97.5 F L 98 F Pulse Rate 87 92 H Respiratory Rate 18 16 16 Blood Pressure 106/54 L 104/74 Pulse Oximetry 99 99 Intake & Output 04/28/18 04/29/18 04/29/18 18:59 06:59 18:59 Intake Total 1150 / 1150 922 / 922 Output Total 600 / 600 700 / 700 Balance 550 / 550 222 / 222 Weight 48 kg Intake: Oral 0 / 0 Tube Feeding 660 / 660 522 / 522 Tube Irrigant 90 / 90 Water Bolus Amount 400 / 400 400 / 400 Output: Urine Amount (Catheter) 600 / 600 700 / 700 Indwelling Urethral Catheter 600 / 600 700 / 700 Other: Date of Last Bowel Movement 04/25/18 04/29/18 # Bowel Movements 4 2 # Incontinent Bowel Movements 4 <Ivana Fernando - 04/29/18 09:37> Narrative: GENERAL: Thin female lying in bed, resting comfortably in no acute distress SKIN: Warm and dry. HEAD: Atraumatic. Normocephalic. EYES: Pupils equal and round. No scleral icterus. No injection or drainage. ENT: No nasal bleeding or discharge. Mucous membranes are dry NECK: Trachea midline. CARDIOVASCULAR: Regular rate and rhythm. RESPIRATORY: No accessory muscle use. Clear to auscultation, no rales or rhonchi. GASTROINTESTINAL: Abdomen soft, non-tender, nondistended. PEG tube in place MUSCULOSKELETAL: Extremities without clubbing, cyanosis, or edema. No obvious deformities. NEUROLOGICAL: Alert, mute, not following, nonverbal right gaze preference no involuntary movements able to get her eyes to cross midline not following mild right gaze preference, not following commands. 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 PSYCHIATRIC: calm <Ivana Fernando - 04/29/18 09:37> - Urinary Catheter Management Indwelling Urethral Catheter Cath placed during this visit: no <Erin Whitehead M - 04/29/18 14:41> no <Ivana Fernando C - 04/29/18 09:37> Reason for continuing: Terminally ill/Comfort care <Ivana Fernando - 09:37> Assessment and Plan - Assessment (1) Acute ischemic stroke Code(s): I63.9 - Cerebral infarction, unspecified Status: Acute Onset Date: 04/21/18 (2) Altered mental state Code(s): R41.82 - Altered mental status, unspecified Status: Acute (3) Urinary tract infection Code(s): N39.0 - Urinary tract infection, site not specified Status: Acute (4) Anemia Code(s): D64.9 - Anemia, unspecified Status: Acute (5) Nutrition, metabolism, and development symptoms Code(s): R63.8 - Other symptoms and signs concerning food and fluid intake Status: Acute <Erin Whitehead - 04/29/18 17:27> (1) Acute ischemic stroke Code(s): I63.9 - Cerebral infarction, unspecified Status: Acute Onset Date: 04/21/18 Plan: Patient with recurrent acute ischemic strokes per MRI 04/23 Neurology following: ASA 325 mg daily, discontinued Eliquis 04/24. Per their note will plan to repeat CT scan in 10-14 days to hemorrhagic transformation, then potentially reconsider Coumadin. On Keppra per PEG. Hospital Course: Patient presented 04/21 with acute mental status changes and focal weakness with recent history of strokes. She was on Eliquis at that time. CT head: did not have acute findings to suggest bleed or infection. EEG: mild to moderate encephalopathy MRI: new area of acute infarction involving the right temporal posterior parietal lobe and new area of subacute infarction involving the left posterior parietal lobe, but no definite acute intracranial hemorrhage is seen. Echo: difficult study without adequate imaging to assess chamber or valve function. poor acoustic imaging Carotid US: unremarkable IV Celebrex started 04/21, switched to IV then PO Keppra PT/OT evaluation: rehab Speech: nothing by mouth. tube feeds. Continue to monitor clinically. Palliative Care consult per neuro; family still wants aggressive care. Continue [facility] for now. Patient's daughter contacted on 04/28 and family expressing desire for home with home health. Will work with case management to help arrange this (2) Altered mental state Code(s): R41.82 - Altered mental status, unspecified Status: Acute Plan: Likely secondary to acute stroke, UTI also likely contributing See acute stroke workup as above (3) Urinary tract infection Code(s): N39.0 - Urinary tract infection, site not specified Status: Acute Plan: Urinalysis concerning for UTI on admission Urine culture E coli ESB Rocephin 1g daily (04/22-04/23) switched to Bactrim one tablet BID for 3 days, completed therapy on 04/26 (4) Anemia Code(s): D64.9 - Anemia, unspecified Status: Acute Plan: Anemia noted. Normocytic. Workup may reveal definitely the etiology but likely related to poor nutritional state and low iron intake. Will continue to monitor her H&H and monitor clinically. Currently stable. Consider iron studies as outpatient. (5) Nutrition, metabolism, and development symptoms Code(s): R63.8 - Other symptoms and signs concerning food and fluid intake Status: Acute Plan: Diet: Jevity 1.5 at 45 mL/hr with 200 mL water q 6 hrs. Crabber consulted, appreciate these recommendations. G-tube replaced by interventional radiology on 04/24 due to occlusion. Fluids: 200 ml free water q 6hr. DVT: SCDs Electrolytes: replete as needed. K lite 25mEq BID 04/24-04/25 due to mild hypoK. HyperK 04/26 at 5.5, stopped k lite at that time and potassium has normalized <Ivana Fernando - 04/29/18 09:31> - Assessment and Plan 72 year old female PMH multiple previous strokes, right-sided weakness and contractures, left-sided weakness, kidney stones presents with altered mental status. Not tPA candidate and on eliquis at home. Initial CT no acute bleeding. Stroke workup including MRI, Carotid studies, echo. MRI showing recurrent strokes. Chronic findings include generalized atrophy and moderate severity chronic white matter changes. Chest x-ray limited but negative for acute processes. Head CTA No intracranial vascular abnormality is identified. Neck CTA no evidence of carotid stenosis. Neurology consulted and following, adjusting medications as indicated. Currently Eliquis d/c'd and on aspirin. Plan is for recheck of heading imagining in 10-14 days to assess for hemorrhagic changes and possibly restarted anticoagulation if clinically warranted. Palliative care consulted and following. Family requesting home with home health care and plan to go home today or tomorrow with . Crabber consulted and following. Patient chronically with PEG tube and on Jevity. <Ivana Fernando - 04/29/18 09:37> - Attending Attestation The exam, history, and the medical decision-making described in the above note were completed with the assistance of the resident physician. I reviewed and agree with the findings presented. I attest that I had a [id number] encounter with the patient on the same day, and personally performed and documented my assessment and findings in the medical record. Per her daughter her this patient's would be ready to have this lady come home within the next day or so. We have put in her discharge in a face-to- face for home nursing care. <Erin Whitehead - 04/29/18 14:41> Progress Note: Quality - Stroke Contraindication Not Initiating IV-Tpa: Contraindicated <Ivana Fernando - 09:37> Onset of Symptoms Date: 04/21/18 <Ivana Fernando - 04/29/18 09:37> Onset of Symptoms Time: 12:30 <Ivana Fernando - 04/29/18 09:37> Contraindication Antithromb by Day Two: Contraindicated <Ivana Fernando - 09:37> <Ivana Fernando - Last Filed: 04/29/18 09:31> (3) Urinary tract infection Qualifiers: Urinary tract infection type: acute pyelonephritis Qualified Code(s): N10 - Acute pyelonephritis <Erin Whitehead - Last Filed: 04/29/18 17:27> (3) Urinary tract infection Qualifiers: Urinary tract infection type: acute pyelonephritis Qualified Code(s): N10 - Acute pyelonephritis <Ivana Fernando - Last Filed: 04/29/18 09:31> (3) Urinary tract infection Qualifiers: Urinary tract infection type: acute pyelonephritis Qualified Code(s): N10 - Acute pyelonephritis <Erin Whitehead - Last Filed: 04/29/18 17:27> (3) Urinary tract infection Qualifiers: Urinary tract infection type: acute pyelonephritis Qualified Code(s): N10 - Acute pyelonephritis
[2018-04-29] MEDS: Acetaminophen 325 MG Tablet PO PRN (12:37)
[2018-04-30 05:23] LABS: Baso # (Auto) 0.1 th/mm3 (0.0-0.2); Baso % (Auto) 0.9 % (0.0-2.0); Eos # (Auto) 0.2 th/mm3 (0.0-0.4); Hematocrit 30.3 % (35.0-46.0); Hemoglobin 10.2 gm/dL (11.6-15.3); Lymph # (Auto) 1.8 th/mm3 (1.0-4.8); Lymph % (Auto) 23.3 % (9.0-44.0); Mean Corpuscular HGB Conc 33.8 % (32.0-36.0); Mean Corpuscular Hemoglobin 31.2 pg (27.0-34.0); Mean Corpuscular Volume 92.2 fL (80.0-100.0); Mean Platelet Volume 7.4 fL (7.0-11.0); Mono # (Auto) 0.6 th/mm3 (0.0-0.9); Mono % (Auto) 7.8 % (0.0-8.0); Neut # (Auto) 5.2 th/mm3 (1.8-7.7); Platelet Count 469 th/mm3 (150-450); Red Blood Count 3.28 mil/mm3 (4.00-5.30); Red Cell Distribution Width 13.9 % (11.6-17.2); White Blood Count 7.9 th/mm3 (4.0-11.0)
[2018-04-30 05:52] LABS: Calcium 8.2 mg/dL (8.5-10.1); Carbon Dioxide 24.9 meq/L (21.0-32.0); Potassium 4.3 meq/L (3.5-5.1)
[2018-04-30] MEDS: Aspirin 325 MG Tablet PO SCH (09:29)
[2018-04-30] MEDS: Senna/Docusate Sodium 8.6/50 MG Tablet PO SCH ×2 (09:29→22:52)
[2018-04-30] MEDS: dilTIAZem CD 240 MG Capsule PO SCH (09:29)
--- NOTE | 2018-04-30 11:37 | P.PNFP ---
Subjective Interval history: No acute events overnight. Patient's vitals remained stable. Case management attempted to call family today but was unsuccessful. Daughter was spoken to yesterday who stated they were attempting to arrange transportation for the patient. Home health arranged and patient's discharge is entered. <Raphael Myrick - 04/30/18 11:36> Results - Labs Result diagrams: 04/30/18 03:04 04/30/18 03:04 <Erin Whitehead - 04/30/18 13:53> Abnormal lab results 04/30/18 04/30/18 Range/Units 03:04 03:04 RBC 3.28 L (4.00-5.30) mil/mm3 Hgb 10.2 L (11.6-15.3) gm/dL Hct 30.3 L (35.0-46.0) % Plt Count 469 H (150-450) th/mm3 BUN 29 H (7-18) mg/dL Creatinine 1.05 H (0.50-1.00) mg/dL Estimated GFR 52 L (>89) mL/min Calcium 8.2 L (8.5-10.1) mg/dL Short CBC 04/30/18 Range/Units 03:04 WBC 7.9 (4.0-11.0) th/mm3 Hgb 10.2 L (11.6-15.3) gm/dL Hct 30.3 L (35.0-46.0) % Plt Count 469 H (150-450) th/mm3 BMP 04/30/18 03:04 Sodium 138 Potassium 4.3 Chloride 102 Carbon Dioxide 24.9 BUN 29 H Creatinine 1.05 H Calcium 8.2 L <Erin Whitehead - 04/30/18 13:53> Abnormal lab results 04/30/18 04/30/18 Range/Units 03:04 03:04 RBC 3.28 L (4.00-5.30) mil/mm3 Hgb 10.2 L (11.6-15.3) gm/dL Hct 30.3 L (35.0-46.0) % Plt Count 469 H (150-450) th/mm3 BUN 29 H (7-18) mg/dL Creatinine 1.05 H (0.50-1.00) mg/dL Estimated GFR 52 L (>89) mL/min Calcium 8.2 L (8.5-10.1) mg/dL Short CBC 04/30/18 Range/Units 03:04 WBC 7.9 (4.0-11.0) th/mm3 Hgb 10.2 L (11.6-15.3) gm/dL Hct 30.3 L (35.0-46.0) % Plt Count 469 H (150-450) th/mm3 BMP 04/30/18 03:04 Sodium 138 Potassium 4.3 Chloride 102 Carbon Dioxide 24.9 BUN 29 H Creatinine 1.05 H Calcium 8.2 L <Raphael Myrick B - 04/30/18 11:36> Physical Exam Vital signs: Vital Signs 04/29/18 16:00 04/29/18 17:31 04/29/18 20:00 Temperature 97.5 F L 97.7 F Pulse Rate 90 75 83 Respiratory Rate 20 18 Blood Pressure 120/77 123/73 Pulse Oximetry 99 98 04/30/18 00:00 04/30/18 08:00 04/30/18 12:00 Temperature 98.4 F 97.5 F L 97.3 F L Pulse Rate 77 98 H 86 Respiratory Rate 18 19 19 Blood Pressure 117/69 133/62 112/65 Pulse Oximetry 100 99 100 Intake & Output 04/29/18 04/30/18 04/30/18 18:59 06:59 18:59 Intake Total 831 / 831 Output Total 600 / 600 1100 / 1100 Balance 231 / 231 -1100 / -1100 Weight 48 kg Intake: Oral 0 / 0 Tube Feeding 431 / 431 Water Bolus Amount 400 / 400 Output: Urine 600 / 600 1100 / 1100 Other: Date of Last Bowel Movement 04/29/18 04/29/18 # Bowel Movements 1 1 # Incontinent Bowel Movements 1 <Erin Whitehead - 04/30/18 13:53> Vital Signs 04/29/18 12:00 04/29/18 13:22 04/29/18 16:00 Temperature 97.3 F L 97.5 F L Pulse Rate 83 93 H 90 Respiratory Rate 19 20 Blood Pressure 124/82 120/77 Pulse Oximetry 98 99 04/29/18 17:31 04/29/18 20:00 04/30/18 00:00 Temperature 97.7 F 98.4 F Pulse Rate 75 83 77 Respiratory Rate 18 18 Blood Pressure 123/73 117/69 Pulse Oximetry 98 100 04/30/18 08:00 Temperature 97.5 F L Pulse Rate 98 H Respiratory Rate 19 Blood Pressure 133/62 Pulse Oximetry 99 Intake & Output 04/29/18 04/30/18 04/30/18 18:59 06:59 18:59 Intake Total 831 / 831 Output Total 600 / 600 1100 / 1100 Balance 231 / 231 -1100 / -1100 Weight 48 kg Intake: Oral 0 / 0 Tube Feeding 431 / 431 Water Bolus Amount 400 / 400 Output: Urine 600 / 600 1100 / 1100 Other: Date of Last Bowel Movement 04/29/18 04/29/18 # Bowel Movements 1 1 # Incontinent Bowel Movements 1 <Raphael Myrick - 04/30/18 11:36> Narrative: GENERAL: Thin female lying in bed, resting comfortably in no acute distress SKIN: Warm and dry. HEAD: Atraumatic. Normocephalic. EYES: Pupils equal and round. No scleral icterus. No injection or drainage. ENT: No nasal bleeding or discharge. Mucous membranes are dry NECK: Trachea midline. CARDIOVASCULAR: Regular rate and rhythm. RESPIRATORY: No accessory muscle use. Clear to auscultation, no rales or rhonchi. GASTROINTESTINAL: Abdomen soft, non-tender, nondistended. PEG tube in place MUSCULOSKELETAL: Extremities without clubbing, cyanosis, or edema. No obvious deformities. NEUROLOGICAL: Alert, mute, not following, nonverbal right gaze preference no involuntary movements able to get her eyes to cross midline not following mild right gaze preference, not following commands. 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 PSYCHIATRIC: calm <Raphael Myrick - 04/30/18 11:36> - Urinary Catheter Management Indwelling Urethral Catheter Cath placed during this visit: no <Erin Whitehead - 04/30/18 13:53> no <Raphael Myrick - 04/30/18 11:36> Reason for continuing: Terminally ill/Comfort care <Raphael Myrick - 11:36> Assessment and Plan - Assessment (1) Acute ischemic stroke Code(s): I63.9 - Cerebral infarction, unspecified Status: Acute Onset Date: 04/21/18 (2) Altered mental state Code(s): R41.82 - Altered mental status, unspecified Status: Acute (3) Urinary tract infection Code(s): N39.0 - Urinary tract infection, site not specified Status: Acute (4) Anemia Code(s): D64.9 - Anemia, unspecified Status: Acute (5) Nutrition, metabolism, and development symptoms Code(s): R63.8 - Other symptoms and signs concerning food and fluid intake Status: Acute <Erin Whitehead - 04/30/18 13:53> (1) Acute ischemic stroke Code(s): I63.9 - Cerebral infarction, unspecified Status: Acute Onset Date: 04/21/18 Plan: Patient with recurrent acute ischemic strokes per MRI 04/23 Neurology following: ASA 325 mg daily, discontinued Eliquis 04/24. Per their note will plan to repeat CT scan in 10-14 days to hemorrhagic transformation, then potentially reconsider Coumadin. On Keppra per PEG. Hospital Course: Patient presented 04/21 with acute mental status changes and focal weakness with recent history of strokes. She was on Eliquis at that time. CT head: did not have acute findings to suggest bleed or infection. EEG: mild to moderate encephalopathy MRI: new area of acute infarction involving the right temporal posterior parietal lobe and new area of subacute infarction involving the left posterior parietal lobe, but no definite acute intracranial hemorrhage is seen. Echo: difficult study without adequate imaging to assess chamber or valve function. poor acoustic imaging Carotid US: unremarkable IV Celebrex started 04/21, switched to IV then PO Keppra PT/OT evaluation: rehab Speech: nothing by mouth. tube feeds. Continue to monitor clinically. Palliative Care consult per neuro; family still wants aggressive care. Continue Mcgee for now. Patient's daughter contacted on 04/28 and family expressing desire for home with home health. Will work with case management to help arrange this. Patient's discharge orders are in. (2) Altered mental state Code(s): R41.82 - Altered mental status, unspecified Status: Acute Plan: Unchanged from admission. See stroke workup as above (3) Urinary tract infection Code(s): N39.0 - Urinary tract infection, site not specified Status: Acute Plan: Urinalysis concerning for UTI on admission Urine culture E coli ESB Rocephin 1g daily (04/22-04/23) switched to Bactrim one tablet BID for 3 days, completed therapy on 04/26 (4) Anemia Code(s): D64.9 - Anemia, unspecified Status: Acute Plan: Anemia noted. Normocytic. Workup may reveal definitely the etiology but likely related to poor nutritional state and low iron intake. Will continue to monitor her H&H and monitor clinically. Currently stable. Consider iron studies as outpatient. (5) Nutrition, metabolism, and development symptoms Code(s): R63.8 - Other symptoms and signs concerning food and fluid intake Status: Acute Plan: Diet: Jevity 1.5 at 45 mL/hr with 200 mL water q 6 hrs. Sales And Service Agent consulted, appreciate these recommendations. G-tube replaced by interventional radiology on 04/24 due to occlusion. Fluids: 200 ml free water q 6hr. DVT: SCDs Electrolytes: replete as needed. K lite 25mEq BID 04/24-04/25 due to mild hypoK. HyperK 04/26 at 5.5, stopped k lite at that time and potassium has normalized <Raphael Myrick - 04/30/18 11:24> - Assessment and Plan 72 year old female PMH multiple previous strokes, right-sided weakness and contractures, left-sided weakness, kidney stones presents with altered mental status. Not tPA candidate and on eliquis at home. Initial CT no acute bleeding. Stroke workup including MRI, Carotid studies, echo. MRI showing recurrent strokes. Chronic findings include generalized atrophy and moderate severity chronic white matter changes. Chest x-ray limited but negative for acute processes. Head CTA No intracranial vascular abnormality is identified. Neck CTA no evidence of carotid stenosis. Neurology consulted and following, adjusting medications as indicated. Currently Eliquis d/c'd and on aspirin. Plan is for recheck of heading imagining in 10-14 days to assess for hemorrhagic changes and possibly restarted anticoagulation if clinically warranted. Sales And Service Agent consulted and following. Patient chronically with PEG tube and on Jevity. Palliative care consulted and following. Family requesting home with home health care and plan to go home with . Home healthcare has been arranged and discharge orders are in. Disposition: Home with home health. <Raphael Myrick - 04/30/18 11:36> - Attending Attestation The exam, history, and the medical decision-making described in the above note were completed with the assistance of the resident physician. I reviewed and agree with the findings presented. I attest that I had a [id number] encounter with the patient on the same day, and personally performed and documented my assessment and findings in the medical record. she is stable. will try to call her daughter to discuss what is happening as she is discharged <Erin Whitehead - 04/30/18 13:53> Progress Note: Quality - Stroke Contraindication Not Initiating IV-Tpa: Contraindicated <Raphael Myrick - 11:36> Onset of Symptoms Date: 04/21/18 <Raphael Myrick - 04/30/18 11:36> Onset of Symptoms Time: 12:30 <Raphael Myrick - 04/30/18 11:36> Contraindication Antithromb by Day Two: Contraindicated <Raphael Myrick - 11:36> <Raphael Myrick - Last Filed: 04/30/18 11:24> (3) Urinary tract infection Qualifiers: Urinary tract infection type: acute pyelonephritis Qualified Code(s): N10 - Acute pyelonephritis <Erin Whitehead - Last Filed: 04/30/18 13:53> (2) Altered mental state Qualifiers: Altered mental status type: disorientation Qualified Code(s): R41.0 - Disorientation, unspecified (3) Urinary tract infection Qualifiers: Urinary tract infection type: acute pyelonephritis Qualified Code(s): N10 - Acute pyelonephritis (4) Anemia Qualifiers: Anemia type: unspecified type Qualified Code(s): D64.9 - Anemia, unspecified <Raphael Myrick - Last Filed: 04/30/18 11:24> (3) Urinary tract infection Qualifiers: Urinary tract infection type: acute pyelonephritis Qualified Code(s): N10 - Acute pyelonephritis <Erin Whitehead - Last Filed: 04/30/18 13:53> (2) Altered mental state Qualifiers: Altered mental status type: disorientation Qualified Code(s): R41.0 - Disorientation, unspecified (3) Urinary tract infection Qualifiers: Urinary tract infection type: acute pyelonephritis Qualified Code(s): N10 - Acute pyelonephritis (4) Anemia Qualifiers: Anemia type: unspecified type Qualified Code(s): D64.9 - Anemia, unspecified
[2018-04-30] MEDS: Acetaminophen 325 MG Tablet PO PRN (22:53)
--- NOTE | 2018-05-01 09:03 | P.PNFP ---
Subjective Interval history: Ms. Diaz is noncommunicative. She is stable from a medical point of view and has been ready to be discharged from the hospital. There has been some continued problems with being able to reach her in particular but her daughter has been reluctant also to speak to case management. Both Dr. Myrick and I have been able to speak to her daughter however her has never called back or been available by either landline or cell phone. The only history or insight into what is happening with her has been obtained through her daughter. Evidently her feels comfortable with the neurologist up at [facility] that he wants his to see. His daughter yesterday reported that he was attempting to arrange his own transportation to get his up to [place] to be seen at [facility]. She reported that this lady's had left messages for the doctor up in [place] and evidently was waiting to hear back. Because I am unable to speak to the and it is very difficult to reach him there is no way to know exactly what his plans are. If I was able to speak to him I would be able to understand whether he wanted her to be going up there to be an inpatient versus is being seen at the outpatient clinic. Because she is stable it is doubtful that she will be admitted to another hospital at this point. However I am unable to relay any information to him or have any sort of discussion. Case management is aware of the difficulties in reaching this lady's decision maker who is the . I have offered the daughter to be able to have home health care if that is what she wishes or to help arrange a rehab for her however her refuses any rehab. At this point he seems also to be reluctant to take her home. Results - Labs Result diagrams: 04/30/18 03:04 04/30/18 03:04 Physical Exam Vital signs: Vital Signs 04/30/18 12:00 04/30/18 16:00 04/30/18 20:00 Temperature 97.3 F L 97.4 F L 98 F Pulse Rate 86 91 H 88 Respiratory Rate 19 18 18 Blood Pressure 112/65 114/69 120/70 Pulse Oximetry 100 100 99 05/01/18 00:00 05/01/18 04:00 Temperature 98 F 97.5 F L Pulse Rate 79 77 Respiratory Rate 18 18 Blood Pressure 138/71 119/65 Pulse Oximetry 96 98 Intake & Output 04/30/18 05/01/18 05/01/18 18:59 06:59 18:59 Output Total 802 / 802 Balance -802 / -802 Weight 48 kg Output: Urine 800 / 800 Stool 2 / 2 Other: Date of Last Bowel Movement 04/30/18 04/30/18 Narrative: GENERAL: Thin/cachectic female lying in bed, resting comfortably in no acute distress not able to have any meaningful conversation SKIN: Warm and dry. Multiple ecchymoses and possible skin cancers throughout her frame HEAD: Atraumatic. Normocephalic. EYES: Pupils equal and round. No scleral icterus. No injection or drainage. ENT: No nasal bleeding or discharge. Mucous membranes are dry NECK: Trachea midline. CARDIOVASCULAR: Regular rate and rhythm. RESPIRATORY: No accessory muscle use. Clear to auscultation, no rales or rhonchi. GASTROINTESTINAL: Abdomen soft, non-tender, nondistended. PEG tube in place MUSCULOSKELETAL: Extremities without clubbing, cyanosis, or edema. No obvious deformities. NEUROLOGICAL: Alert, mute, not following, nonverbal right gaze preference no involuntary movements able to get her eyes to cross midline not following mild right gaze preference, not following commands. 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 PSYCHIATRIC: calm but does call out on occasion and also repeats the same words over and over sometimes - Urinary Catheter Management Indwelling Urethral Catheter Cath placed during this visit: no Reason for continuing: Terminally ill/Comfort care Assessment and Plan - Assessment (1) Acute ischemic stroke Code(s): I63.9 - Cerebral infarction, unspecified Status: Acute Onset Date: 04/21/18 Plan: Patient with recurrent acute ischemic strokes per MRI 04/23 Neurology following: ASA 325 mg daily, discontinued Eliquis 04/24. Per their note will plan to repeat CT scan in 10-14 days to hemorrhagic transformation, then potentially reconsider Coumadin. On Keppra per PEG. Hospital Course: Patient presented 04/21 with acute mental status changes and focal weakness with recent history of strokes. She was on Eliquis at that time. CT head: did not have acute findings to suggest bleed or infection. EEG: mild to moderate encephalopathy MRI: new area of acute infarction involving the right temporal posterior parietal lobe and new area of subacute infarction involving the left posterior parietal lobe, but no definite acute intracranial hemorrhage is seen. Echo: difficult study without adequate imaging to assess chamber or valve function. poor acoustic imaging Carotid US: unremarkable IV Celebrex started 04/21, switched to IV then PO Keppra PT/OT evaluation: rehab Speech: nothing by mouth. tube feeds. Continue to monitor clinically. Palliative Care consult per neuro; family still wants aggressive care. discontinue Mcgee so she doesn't get a UTI Patient's daughter contacted on 04/28 and family expressing desire for home with home health. Will work with case management to help arrange this. Patient's discharge orders are in. unsure what her 's exact plans are (2) Altered mental state Code(s): R41.82 - Altered mental status, unspecified Status: Acute Plan: Unchanged from admission. See stroke workup as above (3) Anemia Code(s): D64.9 - Anemia, unspecified Status: Acute Plan: Anemia noted. Normocytic. Workup may reveal definitely the etiology but likely related to poor nutritional state and low iron intake. Will continue to monitor her H&H and monitor clinically. Currently stable. Consider iron studies as outpatient. She is extremely thin and likely did not take in adequate nutrition nor vitamins. Once someone starts on iron which she is getting in her tube feeds then the hemoglobin begins to improve relatively quickly and that is what has been happening with her her hemoglobin has already increased just since her hospitalization (4) Nutrition, metabolism, and development symptoms Code(s): R63.8 - Other symptoms and signs concerning food and fluid intake Status: Acute Plan: Diet: Jevity 1.5 at 45 mL/hr with 200 mL water q 6 hrs. Railcar Switchman consulted, appreciate these recommendations. G-tube replaced by interventional radiology on 04/24 due to occlusion. Fluids: 200 ml free water q 6hr. DVT: SCDs Electrolytes: replete as needed. K lite 25mEq BID 04/24-04/25 due to mild hypoK. HyperK 04/26 at 5.5, stopped k lite at that time and potassium has normalized - Assessment and Plan 72 year old female PMH multiple previous strokes, right-sided weakness and contractures, left-sided weakness, kidney stones presents with altered mental status. Not tPA candidate and on eliquis at home. Initial CT no acute bleeding. Stroke workup including MRI, Carotid studies, echo. MRI showing recurrent strokes. Chronic findings include generalized atrophy and moderate severity chronic white matter changes. Chest x-ray limited but negative for acute processes. Head CTA No intracranial vascular abnormality is identified. Neck CTA no evidence of carotid stenosis. Neurology consulted and following, adjusting medications as indicated. Currently Eliquis d/c'd and on aspirin. Plan is for recheck of heading imagining in 10-14 days to assess for hemorrhagic changes and possibly restarted anticoagulation if clinically warranted. Railcar Switchman consulted and following. Patient chronically with PEG tube and on Jevity. Palliative care consulted and following. Family requesting home with home health care and plan to go home with . Home healthcare has been arranged and discharge orders are in. Disposition: Home with home health. Progress Note: Quality - Stroke Contraindication Not Initiating IV-Tpa: Contraindicated Onset of Symptoms Date: 04/21/18 Onset of Symptoms Time: 12:30 Contraindication Antithromb by Day Two: Contraindicated (2) Altered mental state Qualifiers: Altered mental status type: disorientation Qualified Code(s): R41.0 - Disorientation, unspecified (3) Anemia Qualifiers: Anemia type: unspecified type Qualified Code(s): D64.9 - Anemia, unspecified
[2018-05-01] MEDS: dilTIAZem CD 240 MG Capsule PO SCH (09:28)
[2018-05-01] MEDS: Senna/Docusate Sodium 8.6/50 MG Tablet PO SCH ×2 (09:29→21:41)
[2018-05-01] MEDS: Aspirin 325 MG Tablet PO SCH (09:29)
[2018-05-01] MEDS: Acetaminophen 325 MG Tablet PO PRN (21:42)
--- NOTE | 2018-05-02 07:23 | P.PNFP ---
Subjective Interval history: No acute events overnight. Patient continues to be stable. Per records, family continues to experience desire to take patient to [facility] for further evaluations for her recurrent strokes. Family is concerned about taking her home as they are worried she will have another stroke. They continue to be reluctant regarding snif placement. <Raphael Myrick B - 05/02/18 07:23> Results - Labs Result diagrams: 04/30/18 03:04 04/30/18 03:04 <Erin Whitehead M - 05/02/18 11:41> Physical Exam Vital signs: Vital Signs 05/01/18 12:00 05/01/18 15:28 05/01/18 16:00 Temperature 98.0 F 97.7 F Pulse Rate 87 88 79 Respiratory Rate 17 17 Blood Pressure 96/55 L 129/61 Pulse Oximetry 100 100 05/01/18 20:00 05/02/18 00:00 05/02/18 04:00 Temperature 97.7 F 97.9 F 97.6 F Pulse Rate 76 73 72 Respiratory Rate 16 16 16 Blood Pressure 111/59 L 109/62 116/60 Pulse Oximetry 100 100 100 05/02/18 08:00 05/02/18 09:53 Temperature 98.2 F Pulse Rate 95 H 92 H Respiratory Rate 16 Blood Pressure 131/75 Pulse Oximetry 96 Intake & Output 05/01/18 05/02/18 05/02/18 18:59 06:59 18:59 Weight 48 kg Other: # Incontinent Voids 1 Date of Last Bowel Movement 04/30/18 04/30/18 05/02/18 # Incontinent Bowel Movements 1 <Erin Whitehead M - 05/02/18 11:41> Vital Signs 05/01/18 08:00 05/01/18 08:30 05/01/18 12:00 Temperature 97.6 F 98.0 F Pulse Rate 80 82 87 Respiratory Rate 17 17 Blood Pressure 116/58 L 96/55 L Pulse Oximetry 100 100 05/01/18 15:28 05/01/18 16:00 05/01/18 20:00 Temperature 97.7 F 97.7 F Pulse Rate 88 79 76 Respiratory Rate 17 16 Blood Pressure 129/61 111/59 L Pulse Oximetry 100 100 05/02/18 00:00 05/02/18 04:00 Temperature 97.9 F 97.6 F Pulse Rate 73 72 Respiratory Rate 16 16 Blood Pressure 109/62 116/60 Pulse Oximetry 100 100 Intake & Output 05/01/18 05/02/18 05/02/18 18:59 06:59 18:59 Weight 48 kg Other: Date of Last Bowel Movement 04/30/18 04/30/18 <Raphael Myrick - 05/02/18 07:23> Narrative: GENERAL: Thin/cachectic female lying in bed, sleeping comfortably today in no acute distress SKIN: Warm and dry. Multiple ecchymoses and possible skin cancers throughout her frame HEAD: Atraumatic. Normocephalic. EYES: Pupils equal and round. No scleral icterus. No injection or drainage. ENT: No nasal bleeding or discharge. Mucous membranes are dry NECK: Trachea midline. CARDIOVASCULAR: Regular rate and rhythm. RESPIRATORY: No accessory muscle use. Clear to auscultation, no rales or rhonchi. GASTROINTESTINAL: Abdomen soft, non-tender, nondistended. PEG tube in place MUSCULOSKELETAL: Extremities without clubbing, cyanosis, or edema. No obvious deformities. NEUROLOGICAL: Alert, mute, not following, nonverbal right gaze preference no involuntary movements able to get her eyes to cross midline not following mild right gaze preference, not following commands. 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 PSYCHIATRIC: calm but does call out on occasion and also repeats the same words over and over sometimes <Raphael Myrick - 05/02/18 07:23> - Urinary Catheter Management Indwelling Urethral Catheter Cath placed during this visit: no <Erin Whitehead - 05/02/18 11:41> no <Raphael Myrick - 05/02/18 07:23> Reason for continuing: Terminally ill/Comfort care <Raphael Myrick [facility] 07:23> Assessment and Plan - Assessment (1) Acute ischemic stroke Code(s): I63.9 - Cerebral infarction, unspecified Status: Acute Onset Date: 04/21/18 (2) Altered mental state Code(s): R41.82 - Altered mental status, unspecified Status: Acute (3) Anemia Code(s): D64.9 - Anemia, unspecified Status: Acute (4) Nutrition, metabolism, and development symptoms Code(s): R63.8 - Other symptoms and signs concerning food and fluid intake Status: Acute <Erin Whitehead - 05/02/18 11:41> (1) Acute ischemic stroke Code(s): I63.9 - Cerebral infarction, unspecified Status: Acute Onset Date: 04/21/18 Plan: Patient with recurrent acute ischemic strokes per MRI 04/23 Neurology following: ASA 325 mg daily, discontinued Eliquis 04/24. Per their note will plan to repeat CT scan in 10-14 days to hemorrhagic transformation, then potentially reconsider Coumadin. On Keppra per PEG. Hospital Course: Patient presented 04/21 with acute mental status changes and focal weakness with recent history of strokes. She was on Eliquis at that time. CT head: did not have acute findings to suggest bleed or infection. EEG: mild to moderate encephalopathy MRI: new area of acute infarction involving the right temporal posterior parietal lobe and new area of subacute infarction involving the left posterior parietal lobe, but no definite acute intracranial hemorrhage is seen. Echo: difficult study without adequate imaging to assess chamber or valve function. poor acoustic imaging Carotid US: unremarkable IV Celebrex started 04/21, switched to IV then PO Keppra PT/OT evaluation: rehab Speech: nothing by mouth. tube feeds. Continue to monitor clinically. Palliative Care consult per neuro; family still wants aggressive care. discontinue Mcgee so she doesn't get a UTI Patient's family continues to want to take the patient to [facility] for further workup. Patient's discharge is been in for multiple days, and the patient either needs to go to a usp facility or home with home health. Family attempting to arrange transportation to [facility]. (2) Altered mental state Code(s): R41.82 - Altered mental status, unspecified Status: Acute Plan: Unchanged from admission. See stroke workup as above (3) Anemia Code(s): D64.9 - Anemia, unspecified Status: Acute Plan: Anemia noted. Normocytic. Workup may reveal definitely the etiology but likely related to poor nutritional state and low iron intake. Will continue to monitor her H&H and monitor clinically. Currently stable. Consider iron studies as outpatient. She is extremely thin and likely did not take in adequate nutrition nor vitamins. Once someone starts on iron which she is getting in her tube feeds then the hemoglobin begins to improve relatively quickly and that is what has been happening with her her hemoglobin has already increased just since her hospitalization (4) Nutrition, metabolism, and development symptoms Code(s): R63.8 - Other symptoms and signs concerning food and fluid intake Status: Acute Plan: Diet: Jevity 1.5 at 45 mL/hr with 200 mL water q 6 hrs. Point Of Care Technician consulted, appreciate these recommendations. G-tube replaced by interventional radiology on 04/24 due to occlusion. Fluids: 200 ml free water q 6hr. DVT: SCDs Electrolytes: replete as needed. K lite 25mEq BID 04/24-04/25 due to mild hypoK. HyperK 04/26 at 5.5, stopped k lite at that time and potassium has normalized <Raphael Myrick - 05/02/18 07:16> - Assessment and Plan 72 year old female PMH multiple previous strokes, right-sided weakness and contractures, left-sided weakness, kidney stones presents with altered mental status. Not tPA candidate and on eliquis at home. Initial CT no acute bleeding. Stroke workup including MRI, Carotid studies, echo. MRI showing recurrent strokes. Chronic findings include generalized atrophy and moderate severity chronic white matter changes. Chest x-ray limited but negative for acute processes. Head CTA No intracranial vascular abnormality is identified. Neck CTA no evidence of carotid stenosis. Neurology consulted and following, adjusting medications as indicated. Currently Eliquis d/c'd and on aspirin. Plan is for recheck of heading imagining in 10-14 days to assess for hemorrhagic changes and possibly restarted anticoagulation if clinically warranted. Point Of Care Technician consulted and following. Patient chronically with PEG tube and on Jevity. Palliative care consulted and following. Family initially requested home with home health care and plan to go home with . Home healthcare has been arranged and discharge orders are in. Family now expressing that they want to take the patient to [facility] in [place] for further workup. Family states they are trying to arrange transportation for her. Disposition: Home with home health. <Raphael Myrick - 05/02/18 07:23> - Attending Attestation The exam, history, and the medical decision-making described in the above note were completed with the assistance of the resident physician. I reviewed and agree with the findings presented. I attest that I had a [id number] encounter with the patient on the same day, and personally performed and documented my assessment and findings in the medical record. medically she is stable. hopefully her comes to terms with her illness and problems so he can take action in caring for her and making decisions. she can never be accepted in transfer to another hospital when she is medically ready for discharge. <Erin Whitehead M - 05/02/18 11:41> Progress Note: Quality - Stroke Contraindication Not Initiating IV-Tpa: Contraindicated <Raphael Myrick - 07:23> Onset of Symptoms Date: 04/21/18 <Raphael Myrick - 05/02/18 07:23> Onset of Symptoms Time: 12:30 <Raphael Myrick - 05/02/18 07:23> Contraindication Antithromb by Day Two: Contraindicated <Raphael Myrick 07:23> <Raphael Myrick - Last Filed: 05/02/18 07:16> (2) Altered mental state Qualifiers: Altered mental status type: disorientation Qualified Code(s): R41.0 - Disorientation, unspecified (3) Anemia Qualifiers: Anemia type: unspecified type Qualified Code(s): D64.9 - Anemia, unspecified <Erin Whitehead M - Last Filed: 05/02/18 11:41> (2) Altered mental state Qualifiers: Altered mental status type: disorientation Qualified Code(s): R41.0 - Disorientation, unspecified (3) Anemia Qualifiers: Anemia type: unspecified type Qualified Code(s): D64.9 - Anemia, unspecified <Raphael Myrick - Last Filed: 05/02/18 07:16> (2) Altered mental state Qualifiers: Altered mental status type: disorientation Qualified Code(s): R41.0 - Disorientation, unspecified (3) Anemia Qualifiers: Anemia type: unspecified type Qualified Code(s): D64.9 - Anemia, unspecified <Erin Whitehead M - Last Filed: 05/02/18 11:41> (2) Altered mental state Qualifiers: Altered mental status type: disorientation Qualified Code(s): R41.0 - Disorientation, unspecified (3) Anemia Qualifiers: Anemia type: unspecified type Qualified Code(s): D64.9 - Anemia, unspecified
--- NOTE | 2018-05-02 07:26 | P.PNADD ---
Addendum to Inpatient Note Reason for Addendum: Additional Documentation Additional information: 72 year old female PMH multiple previous strokes, right-sided weakness and contractures, left-sided weakness, kidney stones presents with altered mental status. Not tPA candidate and on eliquis at home. 04/21 CT head: No acute intracranial abnormality is identified to explain the clinical symptoms, Bilateral areas of encephalomalacia, as above, related to prior infarcts, Chronic findings include generalized atrophy and moderate severity chronic white matter changes. Chest x-ray limited but negative for acute processes. Head CTA No intracranial vascular abnormality is identified. Neck CTA no evidence of carotid stenosis. Neurology consulted and ordered MRI, EEG, home Eliquis, IV celebrex then switched to Keppra. EEG showed mild to moderate encephalopathy. Palliative care consulted. Patient started on Jevity 45 mL/hr feeds with 200 mL free water q 6hours. 04/23 UCX grew Ecoli ESB switched from Rocephin IV to bactrim one tablet BID for [address] showed cytotoxic edema within the right temporoparietal region corresponding with the area of restricted diffusion documented on MRI. No acute blood products present. MRI showed new area of acute infarction involving the right temporal posterior parietal lobe and new area of subacute infarction involving the left posterior parietal lobe, but no definite acute intracranial hemorrhage is seen. Cardiac echo difficult study without adequate imaging to assess chamber or valve function. poor acoustic imaging. 04/24 G-tube replaced by interventional radiology. Neurology stopped Eliquis and switched to aspirin for anticoagulation , and recommended recheck of heading imagining in 10-14 days to assess for hemorrhagic changes and possibly restarted anticoagulation if clinically warranted. Palliative care was consulted as well as case management to work with the daughter and for placement. Family was against the PT/OT SNF recommendations and wanted to take patient home with home health nursing. They then wanted transfer to [facility] in [place] and they are trying to arrange transportation. Daughter visits intermittently and is out of town and difficult to contact and poor phone connection. Plan: -CM following: [facility]; family refuses SNF recommendations -Discharge order with home health is submitted -Diet: Jevity 45 mL/hr with 200 mL water flushes q 6 hrs -Keppra and ASA 325 per PEG ; holding eliquis -Possible CT in 10-14 days by neurology to monitor hemorrhagic transformation and reconsider Coumadin Procedures during stay: 04/24 G tube replacement by interventional radiology
[2018-05-02] MEDS: Senna/Docusate Sodium 8.6/50 MG Tablet PO SCH ×2 (08:11→20:14)
[2018-05-02] MEDS: Aspirin 325 MG Tablet PO SCH (08:11)
[2018-05-02] MEDS: dilTIAZem CD 240 MG Capsule PO SCH (08:11)
[2018-05-03] MEDS: Aspirin 325 MG Tablet PO SCH (08:04)
[2018-05-03] MEDS: Senna/Docusate Sodium 8.6/50 MG Tablet PO SCH (08:04)
[2018-05-03] MEDS: dilTIAZem CD 240 MG Capsule PO SCH (08:04)
--- NOTE | 2018-05-03 08:44 | P.PNFP ---
Subjective Interval history: Ms Diaz had no acute events overnight. She is awake and alert this morning and can state her first name; however, when asked her last name states "35 dollars" . States she has no pain. UOP is appropriate. She has no questions. Nursing reports pt has chronic gluteal cleft pressure ulcer and has been repositioning pt as often as possible. There was no family in the room. Results - Labs Result diagrams: 05/03/18 10:03 05/03/18 10:03 Physical Exam Vital signs: Vital Signs 05/02/18 09:53 05/02/18 11:59 05/02/18 16:00 Temperature 97.1 F L 96.4 F L Pulse Rate 92 H 85 83 Respiratory Rate 18 19 Blood Pressure 122/76 118/82 Pulse Oximetry 98 100 05/02/18 20:00 05/02/18 23:11 05/03/18 00:00 Temperature 98.1 F 98 F Pulse Rate 84 86 Respiratory Rate 21 18 16 Blood Pressure 141/75 H 134/71 Pulse Oximetry 97 98 05/03/18 00:12 05/03/18 04:00 Temperature 98 F Pulse Rate 74 72 Respiratory Rate 16 Blood Pressure 125/57 L Pulse Oximetry 97 Intake & Output 05/02/18 05/03/18 05/03/18 18:59 06:59 18:59 Intake Total 850 / 850 974 / 974 Output Total 400 / 400 Balance 450 / 450 974 / 974 Weight 48 kg Intake: Oral 0 / 0 Tube Feeding 450 / 450 544 / 544 Tube Irrigant 30 / 30 Water Bolus Amount 400 / 400 400 / 400 Output: Urine 400 / 400 Other: # Voids 2 # Incontinent Voids 1 3 Date of Last Bowel Movement 05/02/18 # Bowel Movements 1 # Incontinent Bowel Movements 1 1 Narrative: Narrative: GENERAL: Thin/cachectic female lying in bed, awake and alert but pleasantly confused today in no acute distress SKIN: Warm and dry. Multiple ecchymoses and possible skin cancers throughout her frame HEAD: Atraumatic. Normocephalic. EYES: Pupils equal and round. No scleral icterus. No injection or drainage. ENT: No nasal bleeding or discharge. Mucous membranes are dry NECK: Trachea midline. CARDIOVASCULAR: Regular rate and rhythm. RESPIRATORY: No accessory muscle use. Clear to auscultation, no rales or rhonchi. GASTROINTESTINAL: Abdomen soft, non-tender, nondistended. PEG tube in place MUSCULOSKELETAL: Extremities without clubbing, cyanosis, or edema. No obvious deformities. There is skin breakdown over the right posterior gluteal region with skin blanching and bony prominence. No open wound; no drainage. There is skin breakdown in the perineal region to the right of the midline raphe between the vagina and anus. Again, there is no break in the skin or drainage. NEUROLOGICAL: Alert, answers simple questions, at times inappropriately. Could state her first name correctly. No involuntary movements. Right lower facial weakness right greater than left with spastic hemiparesis. Left arm contracture. PSYCHIATRIC: calm, awake, alert, blunted affect. Answers yes and no questions. - Urinary Catheter Management Indwelling Urethral Catheter Cath placed during this visit: no Reason for continuing: Terminally ill/Comfort care Assessment and Plan - Assessment (1) Acute ischemic stroke Code(s): I63.9 - Cerebral infarction, unspecified Status: Acute Onset Date: 04/21/18 Plan: Patient with recurrent acute ischemic strokes per MRI 04/23 Neurology following: ASA 325 mg daily, discontinued Eliquis 04/24. Per their note will plan to repeat CT scan in 10-14 days to hemorrhagic transformation, then potentially reconsider Coumadin. On Keppra per PEG. Hospital Course: Patient presented 04/21 with acute mental status changes and focal weakness with recent history of strokes. She was on Eliquis at that time. CT head: did not have acute findings to suggest bleed or infection. EEG: mild to moderate encephalopathy MRI: new area of acute infarction involving the right temporal posterior parietal lobe and new area of subacute infarction involving the left posterior parietal lobe, but no definite acute intracranial hemorrhage is seen. Echo: difficult study without adequate imaging to assess chamber or valve function. Poor acoustic imaging Carotid US: unremarkable IV Celebrex started 04/21, switched to IV then PO Keppra PT/OT evaluation: rehab Speech: nothing by mouth. tube feeds. Continue to monitor clinically. Palliative Care consult per neuro; family still wants aggressive care. discontinue Mcgee so she doesn't get a UTI Patient's family continues to want to take the patient to [facility] for further workup. Patient's discharge is been in for multiple days, and the patient either needs [facility] a [facility] or home with home health. Family attempting to arrange transportation to [facility]. 05/03: No interval change. No report of pain; however, nursing reports possible stage II pressure ulcer in gluteal cleft. (2) Altered mental state Code(s): R41.82 - Altered mental status, unspecified Status: Acute Plan: Unchanged from admission. See stroke workup as above (3) Anemia Code(s): D64.9 - Anemia, unspecified Status: Acute Plan: Anemia noted. Normocytic. Workup may reveal definitely the etiology but likely related to poor nutritional state and low iron intake. Will continue to monitor her H&H and monitor clinically. Currently stable. Consider iron studies as outpatient. She is extremely thin and likely did not take in adequate nutrition nor vitamins. Once someone starts on iron which she is getting in her tube feeds then the hemoglobin begins to improve relatively quickly and that is what has been happening with her her hemoglobin has already increased just since her hospitalization (4) Nutrition, metabolism, and development symptoms Code(s): R63.8 - Other symptoms and signs concerning food and fluid intake Status: Acute Plan: Diet: Jevity 1.5 at 45 mL/hr with 200 mL water q 6 hrs. Student Activities Director consulted, appreciate these recommendations. G-tube replaced by interventional radiology on 04/24 due to occlusion. Fluids: 200 ml free water q 6hr. DVT: SCDs Electrolytes: replete as needed. K lite 25mEq BID 04/24-04/25 due to mild hypoK. HyperK 04/26 at 5.5, stopped k lite at that time and potassium has normalized (5) Pressure ulcer of coccygeal region Code(s): L89.159 - Pressure ulcer of sacral region, unspecified stage Status: Acute Plan: Nursing reports pressure ulcer. Inspection finds two areas of skin breakdown as noted in physical exam: one area in posterior right gluteal region approx 3 cm x 3 cm; second area in perineal area also 3-4 cm x 3-4 cm and is painful to palpation or wiping. There are no breaks in the skin; however, there is skin breakdown. -Wound care consult--appreciate recommendations -Specialty bed ordered -Nursing order for frequent repositioning - Assessment and Plan 72 year old female PMH multiple previous strokes, right-sided weakness and contractures, left-sided weakness, kidney stones presents with altered mental status. Not tPA candidate and on eliquis at home. Initial CT no acute bleeding. Stroke workup including MRI, Carotid studies, echo. MRI showing recurrent strokes. Chronic findings include generalized atrophy and moderate severity chronic white matter changes. Chest x-ray limited but negative for acute processes. Head CTA No intracranial vascular abnormality is identified. Neck CTA no evidence of carotid stenosis. Neurology consulted and following, adjusting medications as indicated. Currently Eliquis d/c'd and on aspirin. Plan is to repeat imaging of head in 10- 14 days (-07 May) to assess for hemorrhagic changes and possibly restart anticoagulation if clinically warranted. Student Activities Director consulted and following. Patient chronically with PEG tube and on Jevity. Palliative care consulted and following. Family initially requested home with home health care and plan to go home with . Home healthcare has been arranged and discharge orders are in. Family now expressing that they want to take the patient to [facility] in [place] for further workup. Family states they are trying to arrange transportation for her. Disposition: Home with home health vs SNF vs [facility]. Progress Note: Quality - Stroke Contraindication Not Initiating IV-Tpa: Contraindicated Onset of Symptoms Date: 04/21/18 Onset of Symptoms Time: 12:30 Contraindication Antithromb by Day Two: Contraindicated (2) Altered mental state Qualifiers: Altered mental status type: disorientation Qualified Code(s): R41.0 - Disorientation, unspecified (3) Anemia Qualifiers: Anemia type: unspecified type Qualified Code(s): D64.9 - Anemia, unspecified (5) Pressure ulcer of coccygeal region Qualifiers: Pressure injury stage: stage 1 Qualified Code(s): L89.151 - Pressure ulcer of sacral region, stage 1
[2018-05-03 09:42] VITALS: RESP 20
[2018-05-03 10:51] LABS: Hemoglobin 9.6 gm/dL (11.6-15.3); Mean Corpuscular HGB Conc 32.9 % (32.0-36.0); Mean Corpuscular Hemoglobin 31.1 pg (27.0-34.0); Mean Corpuscular Volume 94.5 fL (80.0-100.0); Mean Platelet Volume 7.3 fL (7.0-11.0); Platelet Count 479 th/mm3 (150-450); Red Blood Count 3.07 mil/mm3 (4.00-5.30); Red Cell Distribution Width 14.8 % (11.6-17.2); White Blood Count 9.6 th/mm3 (4.0-11.0)
[2018-05-03 10:57] LABS: Alanine Aminotransferase 17 U/L (10-53); Albumin 2.2 g/dL (3.4-5.0); Anion Gap 12 meq/L (5-15); Aspartate Aminotransferase 29 U/L (15-37); Blood Urea Nitrogen 30 mg/dL (7-18); Calcium 8.3 mg/dL (8.5-10.1); Carbon Dioxide 25.1 meq/L (21.0-32.0); Chloride 102 meq/L (98-107); Glomerular Filtration Rate 56 mL/min (>89); Glucose,Random 98 mg/dL (74-106); Sodium 139 meq/L (136-145)
[2018-05-03 10:59] LABS: Alkaline Phosphatase 136 U/L (45-117); Total Protein 7.2 g/dL (6.4-8.2)
[2018-05-03 16:52] VITALS: BP 107/57; PULSE 82; TEMP 97.2; O2SAT 100
--- NOTE | 2018-05-05 11:22 | P.DS ---
Date of admission: 04/21/18 15:26 Primary care physician: UNKNOWN Brief History from admission: 72 year old female PMH multiple previous strokes, right-sided weakness and contractures, left-sided weakness, kidney stones presents with altered mental status. Patient non verbal or responsive to questions so history taken from daughter. Patient was unresponsive at 12:30 pm. After physical therapy session at home, patient was lying in bed and staring at ceiling. She did not respond to family members voice or movements. 20 minutes later she was yelling out to family members for help but not stating what was wrong or if she was in any pain. They called the EMS. During the physical therapy session she was interactive and cooperative. The past two weeks she had been her normal baseline tolerating her tube feedings, no vomiting, urinating normally with no change in color or odor of urine, no fever, no chills, no pain. 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 She suffered a second stroke in December with no focal deficits. She had another stroke in January that resulted in weakness of her left side. She regained function of her left leg but cannot use her left hand. She is moved by wheel chair with family assistance. She speaks limited words and often uses the incorrect words. Her daughter feels like she is still able to communicate with her and the patient's , who the patient lives with. They have a nurse who comes at night, but the daughter feels the nurse is not doing an adequate job taking care of her mother. The patient's is the medical decision maker. Daughter is unsure of patient's medications, but says she took her morning dose of Eliquis. DS: Medications - Discharge Medications Prescriptions: albuterol sulfate 2.5 mg INHALATION Q6H PRN #1 inhaler PRN Reason: Shortness Of Breath aspirin 325 mg PO DAILY #30 tab atorvastatin 40 mg PO DAILY #30 tab diltiazem HCl 120 mg PO Q12H #60 tab docusate sodium 100 mg PO DAILY #30 cap lansoprazole 30 mg PO DAILY #30 tab tramadol 25 mg PO Q4H PRN #18 tab PRN Reason: Pain DS: Summary Hospital Course: 72 year old female PMH multiple previous strokes, right-sided weakness and contractures, left-sided weakness, kidney stones presented with altered mental status. Not tPA candidate and on eliquis at home. 04/21 CT head: No acute intracranial abnormality is identified to explain the clinical symptoms, Bilateral areas of encephalomalacia, as above, related to prior infarcts, Chronic findings include generalized atrophy and moderate severity chronic white matter changes. Chest x-ray limited but negative for acute processes. Head CTA No intracranial vascular abnormality is identified. Neck CTA no evidence of carotid stenosis. Neurology consulted and ordered MRI, EEG, home Eliquis, IV celebrex then switched to Keppra. EEG showed mild to moderate encephalopathy. Palliative care consulted. Patient started on Jevity 45 mL/hr feeds with 200 mL free water q 6hours. 04/23 UCX grew Ecoli ESB switched from Rocephin IV to bactrim one tablet BID for [address] showed cytotoxic edema within the right temporoparietal region corresponding with the area of restricted diffusion documented on MRI. No acute blood products present. MRI showed new area of acute infarction involving the right temporal posterior parietal lobe and new area of subacute infarction involving the left posterior parietal lobe, but no definite acute intracranial hemorrhage is seen. Cardiac echo difficult study without adequate imaging to assess chamber or valve function. poor acoustic imaging. 04/24 G-tube replaced by interventional radiology. Neurology stopped Eliquis and switched to aspirin for anticoagulation , and recommended recheck of heading imagining in 10-14 days to assess for hemorrhagic changes and possibly restarted anticoagulation if clinically warranted. Palliative care was consulted as well as case management to work with the daughter and for placement. Family was against the PT/OT SNF recommendations and wanted to take patient home with home health nursing. They then wanted transfer to [facility] in [place] and had to arrange transportation. Patient was d/c home to family on 05/03/2018. - Time Spent with Patient Total time spent providing and/or coordinating discharge services: Greater than 30 minutes - Quality: Stroke Contraindication Not Initiating IV-Tpa: Contraindicated Last date observed well: 04/21/18 Last time observed well: 13:00 Contraindication Antithromb by Day Two: Contraindicated Results Procedures completed during hospitalization: 05/25 G tube replacement by interventional radiology - Impressions ITS Impressions Chest X-Ray 04/21/18 13:56 CONCLUSION: Technically Limited exam grossly negative for acute process Head CTA 04/21/18 13:56 CONCLUSION: No intracranial vascular abnormality is identified. These findings were telephoned to Dr. Orr on 04/21/2018 at 2:24 PM. Neck CTA 04/21/18 13:56 CONCLUSION: No evidence of carotid stenosis. Head MRI 04/23/18 00:00 CONCLUSION: 1. There is a new area of acute infarction involving the right temporal posterior parietal lobe. 2. There is a new area of subacute infarction involving the left posterior parietal lobe. 3. No definite acute intracranial hemorrhage is seen. 4. Diffuse bilateral cortical atrophy and chronic white matter changes are again demonstrated. Head CT 04/23/18 00:03 CONCLUSION: 1. There is cytotoxic edema within the right temporoparietal region corresponding with the area of restricted diffusion documented on today's MRI. No acute blood products are present. 2. Stable chronic changes include bilateral areas of encephalomalacia and generalized atrophy with chronic periventricular white matter change. . Catheter Change 04/24/18 00:00 CONCLUSION: 1. Uncomplicated gastrostomy tube exchange as above. Carotid Doppler Study 04/25/18 16:36 CONCLUSION: 1. Right Internal Carotid Artery: No significant stenosis or atherosclerotic plaque is visualized. 2. Left Internal Carotid Artery: No significant stenosis or atherosclerotic plaque is visualized. 3. Antegrade flow in both vertebral arteries. Discharge Plan - Discharge Disposition Patient Disposition: /Home Health Service - Discharge Condition Condition: Stable - Discharge Order Discharge Orders: Discharge Order (Routine); Ordered 04/29/18 Ordered By: Ivana Fernando - Discharge Details Anticipated Discharge Date: 04/21/18 - Physicians Team Primary Care Provider: UNKNOWN, Attending Provider: Erin Whitehead Other Providers: Tai Orr MD ; Aleah Barnes MD ; Zay Miguel MD ; [facility] ; [facility]
== END 2018-05-03 20:46 | disposition home health service (06) ==
LOC: NEPE 13:54 → NEDA 15:26 → EDBD 15:26 → N03 21:25 → N05 04-24 16:31
PROVIDERS: ADMIT Family Medicine; ATTEND Family Medicine